=== PATIENT | female | born 1935 | race Caucasian/White ===

== ENCOUNTER 2021-12-09 10:39 | Outpatient (CLI) | payer MEDICARE, BC, SELFPAY ==
--- OUTSIDE RECORDS SUMMARY | 2021-12-09 10:59 | XMS_ITS | Summary of Care ---
:1935 Author Organization [facility] Address [facility] [address] [place] [address]- Encounter 08/18/16 - 08/20/16 [facility] [address] [place] [address]- Discharge Diagnosis: Vulvitis Attending Physician: Rufino Latif DO Vital Signs Most recent to oldest [Reference Range]: 1 Blood Pressure [90-140/60-90 mmHg] 104/60 mmHg (08/18/16 2:51 PM) Mean Arterial Pressure 75 mmHg (08/18/16 2:51 PM) Peripheral Pulse Rate [60-100 bpm] 80 bpm (08/18/16 2:51 PM) Respiratory Rate [14-20 br/min] 12 br/min *LOW* (08/18/16 2:51 PM) Problem List No data available for this section Allergies, Adverse Reactions, Alerts Substance Reaction Severity Status Flagyl hives Active sulfa drug hives Active Medications aspirin 81 mg oral tablet 1 tab(s) ( 81 mg ), PO, Daily, # 30 tab(s), 0 Refill(s), Type: Maintenance Start Date: 08/18/16 Status: Orderedbumetanide 1 mg oral tablet 1 tab(s) ( 1 mg ), PO, Daily, # 30 tab(s), 0 Refill(s), Type: Maintenance Start Date: 08/18/16 Status: Orderedcinnamon ( 1,000 mg ), po, bid, 0 Refill(s), Type: Maintenance Start Date: 08/18/16 Status: Orderedclobetasol 0.05% topical cream 1 ada, TOP, BID, # 45 gm, 1 Refill(s), Type: Maintenance, Pharmacy: [facility], 1 ada top bid Start Date: 08/18/16 Status: XlxefvhPuL40 ( 300 mg ), po, daily, 0 Refill(s), Type: Maintenance Start Date: 08/18/16 Status: OrdereddilTIAZem 300 mg/24 hours oral capsule, extended release 1 cap(s) ( 300 mg ), PO, Daily, # 90 cap(s), 0 Refill(s), Type: Maintenance Start Date: 08/18/16 Status: OrderedEmergen-C 0 Refill(s), Type: Maintenance Start Date: 08/18/16 Status: OrderedHumaLOG subcutaneous, Instructions: 6-9 units with meals, 0 Refill(s), Type: Maintenance Start Date: 08/18/16 Status: OrderedLantus subcutaneous, Instructions: 9 units at bedtime, 0 Refill(s), Type: Maintenance Start Date: 08/18/16 Status: Orderedlisinopril 20 mg oral tablet 1 tab(s) ( 20 mg ), PO, Daily, # 30 tab(s), 0 Refill(s), Type: Maintenance Start Date: 08/18/16 Status: OrderedmetFORMIN 500 mg oral tablet 1 tab(s) ( 500 mg ), PO, BID, # 180 tab(s), 0 Refill(s), Type: Maintenance Start Date: 08/18/16 Status: OrderedOmega-3 oral capsule 0 Refill(s), Type: Maintenance Start Date: 08/18/16 Status: Orderedpravastatin 10 mg oral tablet 1 tab(s) ( 10 mg ), PO, Daily, # 30 tab(s), 0 Refill(s), Type: Maintenance Start Date: 08/18/16 Status: OrderedProbiotic Formula oral capsule 1 cap(s), po, daily, 0 Refill(s), Type: Maintenance Start Date: 08/18/16 Status: Orderedspironolactone 25 mg oral tablet 0.5, po, daily, Instructions: take one half tablet daily, 0 Refill(s), Type: Maintenance Start Date: 08/18/16 Status: OrderedVitamin D3 2000 intl units oral capsule 1 cap(s) ( 2,000 International Unit ), po, daily, 0 Refill(s), Type: Maintenance Start Date: 08/18/16 Status: Ordered Results No data available for this section Immunizations No data available for this section Procedures No data available for this section Social History Social History Type Response Tobacco Lived with a smoker for 23 y ears Smoking Status Never smoker Assessment and Plan No data available for this section
--- OUTSIDE RECORDS SUMMARY | 2021-12-09 10:59 | XMS_ITS | Summary of Care ---
:1935 Author Organization [facility] Address [facility] [address] [place] [address]- Care Team Providers Name Role Phone Unavailable Primary Care Physician Unavailable Encounter(s) 10/15/14 - 10/17/14 [facility] [address] [place] [address]- Attending Physician: Rufino Latif DO 02/23/08 - 02/23/08 [facility] [address] [place] [address]- Vital Signs Most recent to oldest [Reference Range]: 1 Height 70.5 in (10/15/14 2:57 PM) Weight 201.4 lb (10/15/14 2:57 PM) Body Mass Index 28.49 kg/m2 (10/15/14 2:57 PM) BSA 2.13 m2 (10/15/14 2:57 PM) Blood Pressure [90-140/60-90 mmHg] 140/64 mmHg (10/15/14 2:57 PM) Mean Arterial Pressure 89 mmHg (10/15/14 2:57 PM) Allergies Verified? Yes (10/15/14 2:57 PM) Medication History Verified? Yes (10/15/14 2:57 PM) Problem List No data available for this section Allergies, Adverse Reactions, Alerts No data available for this section Medications No data available for this section Results No data available for this section Immunizations No data available for this section Procedures No data available for this section Social History Social History Type Response Tobacco Lived with a smoker for 23 y ears Smoking Status Never smoker Assessment and Plan Extracted from: Title: Pelvic organ prolapse Author: Rufino Latif DO Date: 10/15/14 Impression and Plan Orders Orders Charges (Evaluation and Management): [address] office/outpatient visit scott [facility]) (Order): Quantity: 1. I had a very long discussion today with Lorne as well as her about all of her options at this point. We discussed the fact that pelvic organ prolapse in and of itself is not a medical emergen cy. We discussed the fact that it is typ ically treated based on how much the symptoms of the prolapse bother her as well as how much they interfere with her everyday activities. We discussed the fact th at she essentially has 3 options at this point includin] continued observation 2] conservative management including the use of a pessary and physical therapy 3] surgical management including a vagin al hysterectomy with anterior colporrhap hy. I discussed the risks and benefits of each of the options. We discussed today at length the surgica l options. We discussed the fact that surgery is typically done through the vagina and involves removing the uterus and cervix. We talked with the fact the recove ry typically 1-2 weeks with an overnight stay in the hospital. We discussed no heavy lifting for 6 weeks as well as the fact that she should not drive while on narcotics. We discussed at length the fact that this surgery is not medically hector atory, however I do believe that she would have a significant improvement in her everyday activity after surgery. We discussed the limitations of surgery includin g the fact that plication of the anterio r vaginal fascia may weaken with time. Again her questions are answered. Lorne is very well educated and it is clear that she has done her research as to the a dvantages and disadvantages of surgery. We did briefly discuss the fact that vaginal mesh is no longer used in such surgery. I discussed with the patient that at thi s point I would like her to contemplate her options. I would recommend that she continue to follow through with her appointment for pelvic physical therapy in [place]. I have encouraged her to discuss he r options with her immediate family. If she chooses to proceed with surgery I would be happy to see her again in the office to schedule a date. Lorne reports t hat if she does decide to proceed with s urgery that she would like to have it in early October so that she has time to recover prior to scheduled vacation.
--- OUTSIDE RECORDS SUMMARY | 2021-12-09 11:00 | XMS_ITS | Continuity of Care Document ---
:[address] [facility] Address [facility] - [address] [place] [address]- Encounter 01/17/18 - 01/17/18 [facility] [address] [place] [address]- Attending Physician: [facility] , Referring Physician: LEE RAMIRES Allergies, Adverse Reactions, Alerts Substance Reaction Severity Status flaygl Hives Active sulfa drug Hives Active nitroimidazole amebicides Active statins Active Immunizations Given and Recorded Vaccine Date Status Refusal Reason influenza virus vaccine, inactivated1 11/12/17 Recorded influenza virus vaccine, inactivated 11/05/16 Given influenza virus vaccine, inactivated 11/12/15 Given influenza virus vaccine, inactivated 10/30/14 Given influenza virus vaccine, inactivated 11/15/13 Given influenza virus vaccine, inactivated 11/20/11 Given influenza virus vaccine, inactivated 11/11/10 Given influenza virus vaccine, inactivated 11/11/09 Given ZOS, shingles2 10/08/17 Recorded ZOS, shingles 12/20/07 Recorded pneumococcal (PCV13) 01/12/14 Given influenza 11/07/12 Given influenza 11/08/08 Recorded influenza 11/22/96 Recorded tetanus/diphth/pertuss (Tdap) adult/adol 08/17/11 Recorde d DTaP 08/17/11 Recorded influenza, H1N1, inactivated 02/01/09 Recorded Td 09/23/03 Recorded Td 08/27/92 Recorded pneumococcal (PPSV23) 06/13/02 Recorded pneumococcal (PPSV23) 10/30/93 Recorded Hep B 07/31/96 Recorded Hep B 02/22/96 Recorded Hep B 01/23/96 Recorded Hep A 07/31/96 Recorded Hep A 01/23/96 Recorded 1Result Comment: [11/17/2017] Received at [facility]2Result Comment: [10/12/2017] Received at [facility], [place], [place] Medications Ambien 5 mg oral tablet 1 tab(s) ( 5 mg ), po, hs, # 30 tab(s), 0 Refill(s), Type: Maintenance, called to pharmacy (Rx) Start Date: 03/20/11 Stop Date: 08/02/13 Status: Discontinuedamlodipine 5 mg oral tablet 1 tab(s) ( 5 mg ), PO, Daily, Instructions: Discontinue Metoprolol, # 30 tab(s), 11 Refill(s), Type:Maintenance, Pharmacy: [facility], 1 tab(s) po daily,Instr:Discontinue Metoprolol Start Date: 07/23/14 Stop Date: 07/24/14 Status: Discontinuedamlodipine 5 mg oral tablet 1 tab(s) ( 5 mg ), PO, Daily, Instructions: D/C Diltiazem, # 30 tab(s), 11 Refill(s), Type: Maintenance, Pharmacy: [facility] Start Date: 05/19/12 Stop Date: 07/26/12 Status: Discontinuedaspirin 81 mg oral tablet 1 tab(s) ( 81 mg ), PO, Daily, 0 Start Date: 03/07/09 Stop Date: 03/08/12 Status: Discontinuedaspirin 81 mg oral tablet 1 tab(s) ( 81 mg ), po, daily, 0 Refill(s), Type: Maintenance Start Date: 10/08/14 Status: OrderedBD ULTRA FINE 33 G LANCETS MG APPLY See Instructions, Instructions: TEST FOUR TIMES A DAY OR DIRECTED [id number], # 100 unknown unit, 11 Refill(s), Pharmacy: [facility] Start Date: 06/19/10 Stop Date: 08/02/13 Status: DiscontinuedBD ULTRA ULTRA=FINE 111 MINI PEN NEEDLES BD ULTRA ULTRA=FINE 111 MINI PEN NEEDLES, See Instructions, Instructions: INJECT DIRECTED, Supply, # 100 EA, 6 Refill(s), Type: Maintenance Start Date: 02/04/16 Stop Date: 07/23/16 Status: DiscontinuedBD ULTRA-FINE III MINI PEN NEEDLESMG INJECTABLE See Instructions, Instructions: INJECT DIRECTED [id number], # 100 EA, Pharmacy: [facility] Start Date: 02/15/12 Stop Date: 08/02/13 Status: Discontinuedbumetanide 1 mg oral tablet 1 tab(s) ( 1 mg ), po, daily, # 90 tab(s), 3 Refill(s), Type: Maintenance Start Date: 02/13/14 Stop Date: 02/13/14 Status: Discontinuedbumetanide 1 mg oral tablet See Instructions, Instructions: TAKE ONE TABLET BY MOUTH ONCE DAILY, # 90 unknown unit, 3 Refill(s),Pharmacy: [facility] Start Date: 08/18/12 Stop Date: 02/02/13 Status: Discontinuedbumetanide 1 mg oral tablet See Instructions, Instructions: TAKE ONE TABLET BY MOUTH ONCE DAILY, # 90 unknown unit, TAKE ONE TABLET BY MOUTH ONCE DAILY Start Date: 05/07/15 Status: OrderedBumex 0.5 mg oral tablet 1 tab(s) ( 0.5 mg ), PO, Daily, # 90 tab(s), 3 Refill(s), Type: Soft Stop, Pharmacy: [facility] Start Date: 03/21/12 Stop Date: 05/19/12 Status: DiscontinuedCartia XT 240 mg/24 hours oral capsule, extended release 1 cap(s) ( 240 mg ), PO, Daily, # 90 cap(s), 3 Refill(s), Type: Maintenance, Pharmacy: [facility],1 cap(s) po daily Start Date: 07/23/16 Stop Date: 12/08/16 Status: DiscontinuedCartia XT 300 mg/24 hours oral capsule, extended release 1 cap(s) ( 300 mg ), po, daily, # 90 cap(s), 0 Refill(s), Type: Soft Stop Start Date: 01/31/16 Stop Date: 07/23/16 Status: DiscontinuedCayenne pepper drops Cayenne pepper drops, See Instructions, Instructions: 9 gtts daily, Supply, 0 Refill(s), Type: Maintenance Start Date: 01/28/16 Status: OrderedCoenzyme Q10 PO, bid, 0 Refill(s), Type: Maintenance Start Date: 03/07/09 Status: OrderedDilt-XR 240 mg/24 hours oral capsule, extended release 1 cap(s) ( 240 mg ), po, daily, 0 Refill(s), Type: Maintenance Start Date: 08/23/14 Stop Date: 12/04/14 Status: Discontinueddiltiazem 120 mg/24 hours oral capsule, extended release 2 cap(s) ( 240 mg ), po, daily, # 60 cap(s), 2 Refill(s), Type: Maintenance Start Date: 02/03/13 Stop Date: 02/03/13 Status: DiscontinueddilTIAZem 180 mg/24 hours oral capsule, extended release 1 cap(s) ( 180 mg ), PO, Daily, # 30 cap(s), 0 Refill(s), Type: Maintenance Start Date: 12/08/16 Status: Ordereddiltiazem 240 mg/24 hours oral capsule, extended release 1 cap(s) ( 240 mg ), po, daily, # 90 cap(s), 3 Refill(s), Type: Maintenance, Pharmacy: [facility] Start Date: 03/22/12 Stop Date: 05/19/12 Status: Discontinueddiltiazem 240 mg/24 hours oral tablet, extended release 1 tab(s) ( 240 mg ), po, daily, # 90 tab(s), 0 Refill(s), Type: Maintenance, 1 tab(s) po daily Start Date: 01/23/14 Stop Date: 07/13/14 Status: DiscontinuedDiltiazem Hydrochloride XR 300 mg/24 hours oral capsule, extended release 1 cap(s) ( 300 mg ), po, daily, 0 Refill(s), Type: Maintenance Start Date: 12/04/14 Stop Date: 01/21/15 Status: DiscontinuedEmergen-C 0 Refill(s), Type: Maintenance Start Date: 05/19/16 Status: OrderedFish Oil oral capsule daily, 0 Refill(s), Type: Maintenance Start Date: 11/30/11 Status: OrderedFlonase 0.05 mg/inh nasal spray 2 spray(s), Nasal, Daily, # 1 EA, 11 Refill(s), Type: Maintenance, Pharmacy: [facility] Start Date: 08/07/10 Stop Date: 08/02/13 Status: DiscontinuedFlonase 0.05 mg/inh nasal spray 1 spray(s), nasal, daily, # 1 EA, 0 Refill(s), Pharmacy: [facility] Start Date: 11/13/09 Stop Date: 09/02/10 Status: DiscontinuedFoltx oral tablet See Instructions, Instructions: TAKE ONE TABLET BY MOUTH ONCE DAILY, # 90 unknown unit, 3 Refill(s),Pharmacy: [facility] Start Date: 08/18/12 Stop Date: 08/02/13 Status: Discontinuedfurosemide 40 mg oral tablet 1 tab(s) ( 40 mg ), PO, Daily, # 90 tab(s), 0 Refill(s), Type: Maintenance, Pharmacy: [facility], 1 tab(s) po daily Start Date: 04/24/13 Stop Date: 08/02/13 Status: DiscontinuedHumulin 70/30 Pen subcutaneous suspension See Instructions, Instructions: INJECT DIRECTED, # 45 unknown unit, 2 Refill(s), Pharmacy: [facility], INJECT DIRECTED Start Date: 06/19/14 Stop Date: 06/19/14 Status: Discontinuedhydrochlorothiazide 25 mg oral tablet 1 tab(s) ( 25 mg ), PO, Daily, Instructions: D/C Bumex, # 30 tab(s), 11 Refill(s), Type: Maintenance, Pharmacy: [facility] Start Date: 05/19/12 Stop Date: 07/21/12 Status: Discontinuedinsulin aspart 70/30, Subcutaneous, 0 Start Date: 03/07/09 Stop Date: 09/02/10 Status: DiscontinuedLantus Solostar Pen 100 units/mL subcutaneous solution ( 9 unit(s) ), subcutaneous, hs, # 15 mL, 3 Refill(s), Type: Maintenance, Pharmacy: [id number], 9 unit(s) subcutaneous hs Start Date: 02/13/16 Status: Orderedlisinopril 20 mg oral tablet 2 tab(s) ( 40 mg ), PO, daily, 0 Refill(s), Type: Maintenance Start Date: 04/24/11 Stop Date: 04/24/11 Status: Discontinuedlisinopril 20 mg oral tablet 0.5 tab(s) ( 10 mg ), PO, Daily, # 30 tab(s), 0 Refill(s), Type: Maintenance Start Date: 12/08/16 Status: Orderedlisinopril 20 mg oral tablet 1 tab(s) ( 20 mg ), po, daily, 0 Refill(s), Type: Maintenance Start Date: 03/21/12 Stop Date: 03/21/12 Status: Discontinuedlisinopril 40 mg oral tablet 1 tab(s) ( 40 mg ), po, daily, # 30 tab(s), 0 Refill(s), Type: Maintenance, Pharmacy: [facility], due for visit Start Date: 12/02/16 Stop Date: 12/08/16 Status: Discontinuedlovastatin 10 mg oral tablet 1 tab(s) ( 10 mg ), PO, Daily, # 90 tab(s), 0 Refill(s), Type: Maintenance Start Date: 02/04/12 Stop Date: 05/19/12 Status: Discontinuedlovastatin 10 mg oral tablet 1 tab(s) ( 10 mg ), po, daily, 0 Refill(s), Type: Maintenance Start Date: 12/11/11 Stop Date: 01/25/12 Status: Discontinuedlovastatin 20 mg oral tablet 1 tab(s) ( 20 mg ), po, daily, # 90 tab(s), 3 Refill(s), Pharmacy: [facility] Start Date: 11/30/11 Stop Date: 12/11/11 Status: Discontinuedlovastatin 20 mg oral tablet 1 tab(s) ( 20 mg ), po, daily, # 90 tab(s), 1 Refill(s), Pharmacy: [facility] Start Date: 09/02/10 Stop Date: 09/02/10 Status: Discontinuedlovastatin 40 mg oral tablet 1 tab(s) ( 40 mg ), PO, Daily, 0 Start Date: 03/07/09 Stop Date: 10/09/09 Status: Discontinuedmetformin 500 mg oral tablet 2 tab(s) ( 1,000 mg ), PO, BID, # 360 tab(s), 1 Refill(s), Type: Maintenance, 2 tab(s) po bid Start Date: 01/21/15 Stop Date: 10/29/15 Status: DiscontinuedmetFORMIN 500 mg oral tablet, extended release 1 tab(s) ( 500 mg ), PO, daily, # 90 tab(s), 3 Refill(s), Type: Maintenance Start Date: 10/29/15 Status: OrderedMethyl CpG (Vit B) Methyl CpG (Vit B), See Instructions, Supply, 0 Refill(s), Type: Maintenance Start Date: 01/28/16 Status: Orderedmetoprolol succinate 25 mg oral tablet, extended release 1 tab(s) ( 25 mg ), po, daily, # 90 tab(s), 3 Refill(s), Type: Maintenance, Pharmacy: [facility], 1 tab(s) po daily Start Date: 07/24/14 Stop Date: 08/23/14 Status: Discontinuedmetoprolol succinate 50 mg oral tablet, extended release 1 tab(s) ( 50 mg ), PO, Daily, Instructions: Discontinue Diltiazem do not crush or chew, # 90 tab(s), 3 Refill(s), Type: Maintenance, Pharmacy: [facility], 1 tab(s) po daily,Instr:Discontinue Diltiazem; do not crush or chew Start Date: 07/13/14 Stop Date: 07/23/14 Status: DiscontinuedMiraLax 0 Refill(s), Type: Maintenance Start Date: 01/28/16 Status: OrderedNovolin 70/30 subcutaneous suspension See Instructions, Instructions: subcutaneous DIRECITED, # 10 mL, 0 Refill(s), Type: Maintenance, called to pharmacy (Rx) Start Date: 06/19/14 Stop Date: 06/19/14 Status: DiscontinuedNovoLOG FlexPen 100 units/mL subcutaneous solution See Instructions, Instructions: INJECT 9 UNITS SUBCUTANEOUS THREE TIMES A DAY BEFORE MEALS, # 15 unknown unit, 0 Refill(s), Type: Maintenance, Pharmacy: [facility] Start Date: 11/03/16 Status: OrderedNovoLog Mix 70/30 FlexPen ( 10 unit(s) ), subcutaneous, Instructions: as directed, mL, 0 Refill(s), Type: Maintenance Start Date: 02/17/10 Stop Date: 06/08/11 Status: DiscontinuedNovoLog Mix 70/30 FlexPen subcutaneous suspension See Instructions, Instructions: 14-16 UNITS TWICE DAILY subcutaneous bidac, # 15 mL, 2 Refill(s), Type: Maintenance, as directed Start Date: 01/21/15 Stop Date: 07/04/15 Status: Discontinuedpravastatin 10 mg oral tablet 1 tab(s) ( 10 mg ), po, hs, Instructions: MWF, # 90 tab(s), 3 Refill(s), Type: Maintenance Start Date: 01/28/16 Status: Orderedpravastatin 10 mg oral tablet See Instructions, Instructions: TAKE ONE TABLET BY MOUTH ONCE ON MONDAYS, WEDNESDAYS, AND FRIDAYS, #39 unknown unit, 1 Refill(s), Type: Maintenance, Pharmacy: [facility] Start Date: 01/23/16 Stop Date: 01/28/16 Status: DiscontinuedPreserVision AREDS 2 1 cap(s), po, bid, 0 Refill(s), Type: Maintenance Start Date: 10/08/14 Status: OrderedProbiotic Formula 1 cap(s), po, daily, 0 Refill(s), Type: Maintenance Start Date: 06/05/16 Status: Orderedspironolactone 25 mg oral tablet See Instructions, Instructions: 0.5 tab(s) po daily, # 45 EA, 3 Refill(s), Type: Maintenance Start Date: 01/28/16 Status: OrderedVibr-Gest Vibr-Gest, See Instructions, Instructions: 1 caps daily, Supply, 0 Refill(s), Type: Maintenance Start Date: 05/19/16 Status: OrderedVitamin B12 See Instructions, Instructions: 1,000mcg/15ml - 1/2 dropperful MWF, 0 Refill(s), Type: Maintenance Start Date: 06/10/17 Status: OrderedVitamin D3 ( 2,000 International Unit ), po, daily, Instructions: takes qam and takes on M,W,F on days when nottaking her Ca/Vit D, 0 Refill(s), Type: Maintenance Start Date: 01/28/16 Status: OrderedWelchol 3.75 g oral powder for reconstitution 1 EA ( 3.75 gm ), po, daily, 0 Refill(s), Type: Maintenance Start Date: 05/09/13 Stop Date: 06/22/13 Status: DiscontinuedXarelto 15 mg oral tablet 1 tab(s) ( 15 mg ), po, qpm, # 30 tab(s), 11 Refill(s), Type: Maintenance, Pharmacy: [facility], 1tab(s) po qpm Start Date: 07/10/14 Stop Date: 08/23/14 Status: Discontinued Problem List Condition Effective Dates Status Health Status Informant Benign hypertensive CKD(Confirmed) Active Irritable bladder(Confirmed) Active Stage 3 chronic kidney Active disease(Confirmed) Chronic rhinitis(Confirmed) Active Constipation(Confirmed) Active Nocturnal leg cramps(Confirmed) Active Cystocele(Confirmed) Active B12 deficiency(Confirmed) Active Statin intolerance(Confirmed) Active Myofacial muscle pain(Confirmed)1 01/24/15 Active Generalized anxiety Active disorder(Confirmed) History of uterine prolapse(Confirmed) Active Benign head tremor(Confirmed) Active Personal history of colonic Active polyps(Confirmed)2 Dyslipidemia, goal LDL below Active 100(Confirmed) Hypertension complicating Active diabetes(Confirmed) Impingement syndrome, Active shoulder(Confirmed)3 Uterine Prolapse(Confirmed) Active Menopause(Confirmed) 1985 Active Muscle atrophy(Confirmed) Active Osteoarthritis of left knee(Confirmed) Active SVT (supraventricular Active tachycardia)(Confirmed) 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 Vitamin D deficiency(Confirmed) Active [id number] colonoscopy q 3 yrs.3both Procedures Procedure Date Related Diagnosis Body Site Status Biopsy of vulva 09/14/16 Completed BSO - Bilateral salpingo-oophorectomy 09/14/16 Completed Colporrhaphy 09/14/16 Completed Vaginal hysterectomy 09/14/16 Complet ed Colonoscopy1 06/24/16 Completed Colonoscopy2 12/28/12 Completed HPV - Human papillomavirus test 06/19/10 Completed negative3 Colonoscopy4, 5 11/27/09 Completed DEXA - Dual energy X-ray photon 06/22/08 Completed absorptiometry6 Colonoscopy 2004 Completed Left Tibia/Fibula FX 01/2002 Complet ed Laparoscopic cholecystectomy 05/27/00 Completed Adenoidectomy 1941 Completed Tonsillectomy 1941 Completed 1Indication: Adrenomatous polyps Sedation: Versed 1 mg. Fentanyl 50 mcg Findings: Tubular adenoma, diverticulosis Rec: Repeat in 5 years.2Serrated polyp. Repeat 5 years.3Low risk for cervical cancer, but prefers annual pap screening.4Repeat 3 yrs. (Due fall 2012). Has done in [place].5Diverticulosis, 6mm sessile serrated adenoma ascending colon 6Excellent and stable. OK to repeat 5-10 yrs. Social History Social History Type Response Smoking Status Never smoker
--- OUTSIDE RECORDS SUMMARY | 2021-12-09 11:00 | XMS_ITS | Summary of Care ---
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 Discharge Diagnosis: Osteoarthritis of Left Knee Discharge Diagnosis: HTN (hypertension) Discharge Diagnosis: Frequent PVCs Discharge Diagnosis: Dyslipidemia, goal LDL below 100 Attending Physician: Panchito Varela MD Vital Signs Most recent to oldest [Reference Range]: 1 2 Height 70.5 in (12/04/14 10:15 AM) Weight 169 lb (12/04/14 10:15 AM) Body Mass Index 23.9 kg/m2 (12/04/14 10:15 AM) BSA 1.95 m2 (12/04/14 10:15 AM) Blood Pressure [90-140/60-90 mmHg] 132/76 mmHg 146/7 0 mmHg (12/04/14 10:53 AM) *HI* (12/04/14 10:15 AM) Mean Arterial Pressure 95 mmHg 95 mmHg (12/04/14 10:53 AM) (12/04/14 10:15 AM) Peripheral Pulse Rate [60-100 bpm] 73 bpm (12/04/14 10:15 AM) Allergies Verified? Yes (12/04/14 10:15 AM) Medication History Verified? Yes (12/04/14 10:15 AM) Problem List Condition Effective Dates Status Health Status Informant Adenomatous Polyp of Colon(Confirmed) 2004 Active Controlled type 2 DM with proteinuria Active or microalbuminuria(Confirmed) Cystocele(Confirmed) Active Diabetes mellitus type II(Confirmed) Active Dyslipidemia, goal LDL below Active 100(Confirmed) HTN (hypertension)(Confirmed) Active Impingement syndrome, Active shoulder(Confirmed)1 Uterine Prolapse(Confirmed) Active Irritable bladder(Confirmed) Active Menopause(Confirmed) 1985 Active Nocturnal leg cramps(Confirmed) Active Osteoarthritis of Left Knee(Confirmed) Active PERSONAL HISTORY OF COLONIC Active POLYPS(Confirmed)2 Statin intolerance(Confirmed) Active SVT (supraventricular Active tachycardia)(Confirmed) Frequent PVCs(Confirmed) Active [id number] colonoscopy q 3 yrs. Allergies, Adverse Reactions, Alerts Substance Reaction Severity Status flaygl Hives Active sulfa drug Hives Active Medications aspirin 81 mg oral tablet 3 tab(s) ( 243 mg ), po, daily, 0 Refill(s), Type: Maintenance Start Date: 10/08/14 Status: OrderedBD ULTRA FINE 33 G LANCETS MG APPLY See Instructions, Instructions: TEST FOUR TIMES A DAY OR DIRECTED [id number], # 100 unknown unit, [facility]acy: [facility] Special Instructions: TEST FOUR TIMES A DAY OR DIRECTED [id number] Start Date: 02/15/12 Status: OrderedBD ULTRA-FINE III MINI PEN NEEDLES MG INJECTABLE See Instructions, Instructions: INJECT DIRECTED [id number], # 100 unknown unit, 12 Refill(s), [facility], INJECT DIRECTED [id number] Special Instructions: INJECT DIRECTED [id number] Start Date: 10/22/14 Status: OrderedBD ULTRA-FINE III MINI PEN NEEDLES MG INJECTABLE See Instructions, Instructions: INJECT DIRECTED [id number], # 100 unknown unit, 5 Refill(s), [facility]: [facility], INJECT DIRECTED [id number] Special Instructions: INJECT DIRECTED [id number] Start Date: 09/26/13 Status: Orderedbumetanide 1 mg oral tablet See Instructions, Instructions: TAKE ONE TABLET BY MOUTH ONCE DAILY, # 90 unknown unit, 3 Refill(s),[facility]acy: [facility], TAKE ONE TABLET BY MOUTH ONCE DAILY Special Instructions: TAKE ONE TABLET BY MOUTH ONCE DAILY Start Date: 02/19/14 Status: OrderedCalcium with Vitamin D and K oral tablet 1 tab(s), po, bid, 0 Refill(s), Type: Maintenance Start Date: 11/30/11 Status: OrderedCoenzyme Q10 PO, Daily, 0 Start Date: 03/07/09 Status: OrderedDiltiazem Hydrochloride XR 300 mg/24 hours oral capsule, extended release 1 cap(s) ( 300 mg ), po, daily, 0 Refill(s), Type: Maintenance Start Date: 12/04/14 Status: OrderedFish Oil oral capsule 3-4x/wk, 0 Refill(s), Type: Maintenance Start Date: 11/30/11 Status: OrderedHome Blood Pressure monitor Home Blood Pressure monitor, See Instructions, Instructions: Monitor BP at home, Supply, # 1 EA, 0 Refill(s), Type: Maintenance Special Instructions: Monitor BP at home Start Date: 07/24/14 Status: Orderedlisinopril 40 mg oral tablet 1 tab(s) ( 40 mg ), po, daily, # 90 tab(s), 1 Refill(s), Type: Maintenance, [facility]acy: [facility], 1 tab(s) po daily Start Date: 07/22/14 Status: Orderedmetformin 500 mg oral tablet 2 tab(s) ( 1,000 mg ), PO, BID, # 360 tab(s), 1 Refill(s), Type: Maintenance, Pharmacy: [facility], 2 tab(s) po bid Start Date: 07/22/14 Status: OrderedNOVA MAX STRIPS MG APPLY See Instructions, Instructions: TEST FOUR TIMES A DAY OR DIRECTED, # 100 unknown unit, 11 Refill(s), [facility]: [facility], TEST FOUR TIMES A DAY OR DIRECTED Special Instructions: TEST FOUR TIMES A DAY OR DIRECTED Start Date: 02/19/14 Status: OrderedNovoLog Mix 70/30 FlexPen subcutaneous suspension ( 14 unit(s) ), subcutaneous, bidac, # 10 mL, 2 Refill(s), Type: Maintenance, Pharmacy: [facility], as directed Start Date: 06/19/14 Status: Orderedpravastatin 10 mg oral tablet 1 tab(s) ( 10 mg ), po, mwf, # 39 tab(s), 1 Refill(s), Type: Maintenance, Pharmacy: [facility], 1 tab(s) po mwf Start Date: 07/22/14 Status: OrderedPreserVision AREDS 2 1 cap(s), po, daily, 0 Refill(s), Type: Maintenance Start Date: 10/08/14 Status: Ordered Results No data available for this section Immunizations Vaccine Date Refusal Reason influenza virus vaccine, inactivated 10/30/14 influenza virus vaccine, inactivated 11/15/13 influenza virus vaccine, inactivated 11/20/11 influenza virus vaccine, inactivated 11/11/10 influenza virus vaccine, inactivated 11/11/09 pneumococcal (PCV13) 01/12/14 influenza 11/07/12 influenza 11/08/08 influenza 11/22/96 tetanus/diphth/pertuss (Tdap) adult/adol 08/17/11 DTaP 08/17/11 ZOS, shingles 12/20/07 Td 09/23/03 Td 08/27/92 pneumococcal (PPSV23) 06/13/02 pneumococcal (PPSV23) 10/30/93 Hep A 07/31/96 Hep A 01/23/96 Hep B 07/31/96 Hep B 02/22/96 Hep B 01/23/96 Procedures Procedure Date Related Diagnosis Body Site Colonoscopy1 12/28/12 HPV - Human papillomavirus test negative2 06/19/10 Colonoscopy3, 4 11/27/09 DEXA - Dual energy X-ray photon absorptiometry5 06/22/08 Colonoscopy 2005 Left Tibia/Fibula FX 01/2002 Laparoscopic cholecystectomy 05/27/00 Adenoidectomy 194 Tonsillectomy 1941 1Serrated polyp. Repeat 5 years.2Low risk for cervical cancer, but prefers annual pap screening.3Diverticulosis, 6mm sessile serrated adenoma ascending [id number] 3 yrs. (Due fall 2012). Has done in [place].5Excellent and stable. OK to repeat 5-10 yrs. Social History Social History Type Response Smoking Status Never smoker Assessment and Plan Extracted from: Title: DM Author: Panchito Varela MD Date: 5 Impression and Plan Diagnosis Dyslipidemia, goal LDL below 100 (ICD10- CM E78.5). Controlled type 2 DM with microalbuminur ia or microproteinuria (EWQ90-US E11.9). HTN (hypertension) (VWO97-AY I10). Osteoarthritis of Left Knee (EIB34-XV M1 7.9). Statin intolerance (OKP64-MJ Z88.9). Frequent PVCs (YRA58-TT I49.3). Course: Good response to treatment. Orders Orders (Selected) Outpatient Orders Ordered Return to Clinic (Request): RFV: Catarina solano, Return in 6 months, Instructions: after lab Return to Clinic (Request): Return in 1 year w/ D. Barry bring meter and log Return to Clinic: RFV: Lab standing orde r: MATIAS,lipid q12mo Hgb A1C ,BMP, lipids q6mo Return to Office (Request): RFV: MATIAS in 6 months. QID monitoring for one week. Patient Instructions: Counseled: Patient , Diet, Activity, Verbalized understanding, weight loss.
--- OUTSIDE RECORDS SUMMARY | 2021-12-09 11:00 | XMS_ITS | Summary of Care ---
:1935 Author Organization [facility] s Address [address] [address]- Care Team Providers Name Role Phone Panchito Varela MD Primary Care Physician Encounter 01/28/16 - 01/30/16 [facility] [[email or web address]] [address] [place] [id number]- Discharge Diagnosis: Dyslipidemia, goal LDL below 100 Discharge Diagnosis: Type 2 diabetes mellitus with hemoglobin A1c goal of less than 7.0% Discharge Diagnosis: Chronic kidney disease (CKD), stage III (moderate) Discharge Diagnosis: HTN (hypertension) Attending Physician: Isak Rae MD Vital Signs Most recent to oldest [Reference Range]: 1 Temperature Tympanic [97.9-100.6 DegF] 97.8 DegF *LOW* (01/28/16 2:27 PM) Systolic Blood Pressure [90-140 mmHg] 145 mmHg *HI* (01/28/16 2:27 PM) Peripheral Pulse Rate [60-100 bpm] 65 bpm (01/28/16 2:27 PM) Allergies Verified? Yes (01/28/16 2:27 PM) Medication History Verified? Yes (01/28/16 2:27 PM) Medical History Verified? Yes (01/28/16 2:27 PM) Problem List Condition Effective Dates Status Health Status Informant Adenomatous Polyp of Colon(Confirmed) 2004 Active Chronic rhinitis(Confirmed) Active Constipation(Confirmed) Active Cystocele(Confirmed) Active B12 deficiency(Confirmed) Active Diabetes mellitus type II(Confirmed) Active Myofacial muscle pain(Confirmed)1 01/24/15 Active Generalized anxiety Active disorder(Confirmed) Benign head tremor(Confirmed) Active Dyslipidemia, goal LDL below Active 100(Confirmed) HTN (hypertension)(Confirmed) Active Impingement syndrome, Active shoulder(Confirmed)2 Uterine Prolapse(Confirmed) Active Irritable bladder(Confirmed) Active Menopause(Confirmed) 1984 Active Muscle atrophy(Confirmed) Active Nocturnal leg cramps(Confirmed) Active Osteoarthritis of Left Knee(Confirmed) Active PERSONAL HISTORY OF COLONIC Active POLYPS(Confirmed)3 Colon polyp(Confirmed) Active Renal failure(Confirmed) Active Statin intolerance(Confirmed) Active SVT (supraventricular Active tachycardia)(Confirmed) Type 2 diabetes mellitus with Active hemoglobin A1c goal of less than 7.0%(Confirmed) Frequent PVCs(Confirmed) Active Vitamin D deficiency(Confirmed) Active [id number] colonoscopy q 3 yrs. Allergies, Adverse Reactions, Alerts Substance Reaction Severity Status flaygl Hives Active nitroimidazole amebicides Active statins Active sulfa drug Hives Active Medications aspirin 81 mg oral tablet 1 tab(s) ( 81 mg ), po, daily, 0 Refill(s), Type: Maintenance Start Date: 10/08/14 Status: OrderedBD ULTRA FINE 33 G LANCETS MG APPLY See Instructions, Instructions: TEST FOUR TIMES A DAY OR DIRECTED [id number], # 100 unknown unit, Pharmacy: [facility] Start Date: 02/15/12 Status: OrderedBD ULTRA ULTRA=FINE 111 MINI PEN NEEDLES BD ULTRA ULTRA=FINE 111 MINI PEN NEEDLES, See Instructions, Instructions: INJECT DIRECTED, Supply, # 100 EA, 6 Refill(s), Type: Maintenance, [facility] INJECT DIRECTED Start Date: 07/04/15 Status: OrderedBD ULTRA-FINE III MINI PEN NEEDLES MG INJECTABLE See Instructions, Instructions: INJECT DIRECTED, # 200 EA, 5 Refill(s), [facility]: [facility], INJECT DIRECTED [id number] Start Date: 09/26/13 Status: Orderedbumetanide 1 mg oral tablet See Instructions, Instructions: TAKE ONE TABLET BY MOUTH ONCE DAILY, # 90 unknown unit, TAKE ONE TABLET BY MOUTH ONCE DAILY Start Date: 05/07/15 Status: OrderedCalcium 600+D See Instructions, Instructions: 1200/1000 //Sa/Pimentel, 0 Refill(s), Type: Maintenance Start Date: 01/28/16 Status: OrderedCartia XT 300 mg/24 hours oral capsule, extended release 1 cap(s) ( 300 mg ), po, daily, # 90 cap(s), 0 Refill(s), Type: Soft Stop Start Date: 01/31/16 Status: OrderedCayenne pepper drops Cayenne pepper drops, See Instructions, Instructions: 9 gtts daily, Supply, 0 Refill(s), Type: Maintenance Start Date: 01/28/16 Status: OrderedCoenzyme Q10 PO, bid, 0 Refill(s), Type: Maintenance Start Date: 03/07/09 Status: OrderedCONTOUR NEXT EZ BGM MG BEAD See Instructions, Instructions: USE DIRECTED FREE METER, # 1 unknown unit, Pharmacy: [facility], USE DIRECTED FREE METER Start Date: 05/07/15 Status: OrderedFish Oil oral capsule daily, 0 Refill(s), Type: Maintenance Start Date: 11/30/11 Status: OrderedHome Blood Pressure monitor Home Blood Pressure monitor, See Instructions, Instructions: Monitor BP at home, Supply, # 1 EA, 0 Refill(s), Type: Maintenance Start Date: 07/24/14 Status: OrderedLantus Solostar Pen 100 units/mL subcutaneous solution ( 12 unit(s) ), subcutaneous, hs, # 10 mL, 11 Refill(s), Type: Maintenance, 12 unit(s) subcutaneous hs Start Date: 07/04/15 Status: Orderedlisinopril 40 mg oral tablet 1 tab(s) ( 40 mg ), po, daily, # 90 tab(s), 1 Refill(s), Type: Maintenance, Pharmacy: [facility] Start Date: 01/23/16 Status: OrderedmetFORMIN 500 mg oral tablet, extended release 1 tab(s) ( 500 mg ), PO, bid, # 180 tab(s), 3 Refill(s), Type: Maintenance, 1 tab(s) po bid Start Date: 10/29/15 Status: OrderedMethyl CpG (Vit B) Methyl CpG (Vit B), See Instructions, Supply, 0 Refill(s), Type: Maintenance Start Date: 01/28/16 Status: OrderedMiraLax 0 Refill(s), Type: Maintenance Start Date: 01/28/16 Status: OrderedNOVA MAX STRIPS NOVA MAX STRIPS, See Instructions, Instructions: TEST 4 X Day, Supply, # 2 box(es), 1 Refill(s), Type: Maintenance, Pharmacy: [id number], TEST 4 X Day Start Date: 02/05/15 Status: OrderedNOVA MAX STRIPS MG APPLY See Instructions, Instructions: TEST FOUR TIMES A DAY OR DIRECTED, # 100 unknown unit, 11 Refill(s), Pharmacy: [facility], TEST FOUR TIMES A DAY OR DIRECTED Start Date: 02/19/14 Status: OrderedNovoLOG PenFill 100 units/mL subcutaneous solution ( 9 unit(s) ), subcutaneous, tidac, # 15 mL, 11 Refill(s), Type: Maintenance, 9 unit(s) subcutaneoustidac Start Date: 07/04/15 Status: Orderedpravastatin 10 mg oral tablet 1 tab(s) ( 10 mg ), po, hs, # 90 tab(s), 3 Refill(s), Type: Maintenance, 1 tab(s) po hs Start Date: 01/28/16 Status: OrderedPreserVision AREDS 2 1 cap(s), po, bid, 0 Refill(s), Type: Maintenance Start Date: 10/08/14 Status: OrderedProbiotic Formula 1 cap(s), po, qpm, 0 Refill(s), Type: Maintenance Start Date: 01/28/16 Status: Orderedspironolactone 25 mg oral tablet 1 tab(s) ( 25 mg ), po, daily, # 90 tab(s), 3 Refill(s), Type: Maintenance, 1 tab(s) po daily Start Date: 01/28/16 Status: OrderedVitamin B-12 ( 500 mcg ), po, daily, 0 Refill(s), Type: Maintenance Start Date: 10/29/15 Status: OrderedVitamin D3 ( 2,000 International Unit ), po, daily, Instructions: takes qam and takes on M,W,F on days when nottaking her Ca/Vit D, 0 Refill(s), Type: Maintenance Start Date: 01/28/16 Status: Ordered Results No data available for this section Immunizations Given and Recorded Vaccine Date Status Refusal Reason influenza virus vaccine, inactivated 11/12/15 Given influenza virus vaccine, inactivated 10/30/14 Given influenza virus vaccine, inactivated 11/15/13 Given influenza virus vaccine, inactivated 11/20/11 Given influenza virus vaccine, inactivated 11/11/10 Given influenza virus vaccine, inactivated 11/11/09 Given pneumococcal (PCV13) 01/12/14 Given influenza 11/07/12 Given influenza 11/08/08 Recorded influenza 11/22/96 Recorded tetanus/diphth/pertuss (Tdap) adult/adol 08/17/11 Recorde d DTaP 08/17/11 Recorded influenza, H1N1, inactivated 02/01/09 Recorded ZOS, shingles 12/20/07 Recorded Td 09/23/03 Recorded Td 08/27/92 Recorded pneumococcal (PPSV23) 06/13/02 Recorded pneumococcal (PPSV23) 10/30/93 Recorded Hep B 07/31/96 Recorded Hep B 02/22/96 Recorded Hep B 01/23/96 Recorded Hep A 07/31/96 Recorded Hep A 01/23/96 Recorded Procedures Procedure Date Related Diagnosis Body Site Colonoscopy1 12/28/12 HPV - Human papillomavirus test negative2 06/19/10 Colonoscopy3, 4 11/27/09 DEXA - Dual energy X-ray photon absorptiometry5 06/22/08 Colonoscopy 2004 Left Tibia/Fibula FX 01/2002 Laparoscopic cholecystectomy 05/27/00 Adenoidectomy 1941 Tonsillectomy 1941 1Serrated polyp. Repeat 5 years.2Low risk for cervical cancer, but prefers annual pap screening.3Diverticulosis, 6mm sessile serrated adenoma ascending [id number] 3 yrs. (Due fall 2012). Has done in [place].5Excellent and stable. OK to repeat 5-10 yrs. Social History Social History Type Response Smoking Status Never smoker Assessment and Plan Extracted from: Title: Action Plan Author: Rand Hoffman CMA Date: 01/29/16 ACTION PLAN Goal(s): BP management/monitor kidneys Today? s Date: 01/29/16 Goal(s) completion date: within 1-2 mo Steps to be taken manage BP When will I accomplish these steps Barriers Status hypertension, uncontrolled current antihypertensive regimen: lisin opril 40mg daily, diltiazem 300mg daily, bumetanide 1mg daily regimen changes: add spironolactone 25m g daily intolerance: future titration/work-up plan: - SBP goal <140/90; recommend home jonh toring - potential future beta pierce use? - baseline HR in 60s-7s - needs BMP recheck in 4 weeks ([place]) to insure stable GFR and electrolytes with ACEi + aldosterone antagonist Steps to be taken CKD When will I accomplish these steps Barriers Status CKD, stage 3a, baseline SCr 1.2; eGFR ~4 5-50mL/min - suspect related to microvascular dise ase (longstanding DM and HTN) - historically with +MATIAS - low suspicions for underlying GN - arrange for U/A, urine protein/Cr rat io, BMP, hgb, PTH, phosphorus - needs anti-hypertensive optimization Steps to be taken When will I accomplish these steps Barriers Status Steps to be taken When will I accomplish these steps Barriers Status Extracted from: Title: CCM Intake Author: Rand Hoffman CMA Date: 01/29/16 Pt was referred to [facility] by [facility]. Program d iscussed w/ the patient and consent was signed. Will be leaving for [place] in a coup le of weeks. Extracted from: Title: SHELBYM Renal referral note Author: Isak Rae MD Date: 01/28/16
--- OUTSIDE RECORDS SUMMARY | 2021-12-09 11:00 | XMS_ITS | Continuity of Care Document ---
:1935 Author Organization [facility] s Address [facility] s - [address] [place] [address]- Care Team Providers Name Role Phone Isak Rae MD Primary Care Physician Encounter 06/15/17 - 06/15/17 [facility] [address] [place] [address]- Encounter Diagnosis Chronic kidney disease (CKD), stage III (moderate) (Discharge Diagnosis) - 06/15/17 Dyslipidemia, goal LDL below 100 (Discharge Diagnosis) - 06/15/17 HTN (hypertension) (Discharge Diagnosis) - 06/15/17 Type 2 diabetes mellitus with hemoglobin A1c goal of less than 7.0% (Discharge Diagnosis) - 06/15/17 Attending Physician: Isak Rae MD Referring Physician: Isak Rae MD Allergies, Adverse Reactions, Alerts Substance Reaction Severity Status flaygl Hives Active sulfa drug Hives Active nitroimidazole amebicides Active statins Active Assessment and Plan Extracted from: Title: CKD3 Author: Isak Rae MD Date: 06/15/17 Impression and Plan Diagnosis Chronic kidney disease (CKD), stage III (moderate) (BNC32-CJ N18.3). Type 2 diabetes mellitus with hemoglobin A1c goal of less than 7.0% (OBK76-FE E11.9). HTN (hypertension) (MIK50-TM I10). Dyslipidemia, goal LDL below 100 (ICD10- CM E78.5). .) CKD, stage 3a, baseline SCr 1.5; eGFR ~35-40mL/min; interval rise to 1.5 - suspect related to renal hypoperfusion from hypertensive regimen. - historically with -MATIAS - urine protein/Cr ratio (11/2016): nor mal - low suspicions for underlying GN .) hypertension, too low (symptomatic hy potension) current antihypertensive regimen: lisino pril 10mg daily, diltiazem 180mg daily, bumetanide 1mg daily, spironolactone 12.5mg daily regimen changes: stop lisinopril; in 1-2 weeks, if home SBP remains <120, then needs to stop spironolactone as well intolerance: future titration/work-up plan: - SBP goal <130/80 .) type II DM - managed through Dr. Mary petersen - expresses concerns about Basaglar use instead of Lantus; thinks she is having adverse reactions RTC in 4 months with repeat BMP Immunizations Given and Recorded Vaccine Date Status Refusal Reason influenza virus vaccine, inactivated 11/05/16 Given influenza [...] A 07/31/96 Recorded Hep A 01/23/96 Recorded Medications aspirin 81 mg oral tablet 1 tab(s) ( 81 mg ), po, daily, 0 Refill(s), Type: Maintenance Start Date: 10/08/14 Status: Orderedbumetanide 1 mg oral tablet See Instructions, Instructions: TAKE ONE TABLET BY MOUTH ONCE DAILY, # 90 unknown unit, TAKE ONE TABLET BY MOUTH ONCE DAILY Start Date: 05/07/15 Status: OrderedCayenne pepper drops Cayenne pepper drops, See Instructions, Instructions: 9 gtts daily, Supply, 0 Refill(s), Type: Maintenance Start Date: 01/28/16 Status: OrderedCoenzyme Q10 PO, bid, 0 Refill(s), Type: Maintenance Start Date: 03/07/09 Status: OrdereddilTIAZem 180 mg/24 hours oral capsule, extended release 1 cap(s) ( 180 mg ), PO, Daily, # 30 cap(s), 0 Refill(s), Type: Maintenance Start Date: 12/08/16 Status: OrderedEmergen-C 0 Refill(s), Type: Maintenance Start Date: 05/19/16 Status: OrderedFish Oil oral capsule daily, 0 Refill(s), Type: Maintenance Start Date: 11/30/11 Status: OrderedLantus Solostar Pen 100 units/mL subcutaneous solution ( 9 unit(s) ), subcutaneous, hs, # 15 mL, 3 Refill(s), Type: Maintenance, Pharmacy: [id number], 9 unit(s) subcutaneous hs Start Date: 02/13/16 Status: Orderedlisinopril 20 mg oral tablet 0.5 tab(s) ( 10 mg ), PO, Daily, # 30 tab(s), 0 Refill(s), Type: Maintenance Start Date: 12/08/16 Status: OrderedmetFORMIN 500 mg oral tablet, extended release 1 tab(s) ( 500 mg ), PO, daily, # 90 tab(s), 3 Refill(s), Type: Maintenance Start Date: 10/29/15 Status: OrderedMethyl CpG (Vit B) Methyl CpG (Vit B), See Instructions, Supply, 0 Refill(s), Type: Maintenance Start Date: 01/28/16 Status: OrderedMiraLax 0 Refill(s), Type: Maintenance Start Date: 01/28/16 Status: OrderedNovoLOG FlexPen 100 units/mL subcutaneous solution See Instructions, Instructions: INJECT 9 UNITS SUBCUTANEOUS THREE TIMES A DAY BEFORE MEALS, # 15 unknown unit, 0 Refill(s), Type: Maintenance, Pharmacy: [facility] Start Date: 11/03/16 Status: Orderedpravastatin 10 mg oral tablet 1 tab(s) ( 10 mg ), po, hs, Instructions: MWF, # 90 tab(s), 3 Refill(s), Type: Maintenance Start Date: 01/28/16 Status: OrderedPreserVision AREDS 2 [...] Type: Maintenance Start Date: 01/28/16 Status: Ordered Problem List Condition Effective Dates Status Health Status Informant Irritable bladder(Confirmed) Active CKD (chronic kidney disease) stage 3, Active GFR 30-59 ml/min(Confirmed) Chronic rhinitis(Confirmed) Active Constipation(Confirmed) Active Nocturnal leg cramps(Confirmed) Active Cystocele(Confirmed) Active B12 deficiency(Confirmed) Active Statin intolerance(Confirmed) Active Myofacial muscle pain(Confirmed)1 01/24/15 Active Generalized anxiety Active disorder(Confirmed) History of uterine prolapse(Confirmed) Active Benign head tremor(Confirmed) Active Personal history of colonic Active polyps(Confirmed)2 Dyslipidemia, goal LDL below Active 100(Confirmed) HTN (hypertension)(Confirmed) Active Impingement syndrome, Active shoulder(Confirmed)3 Uterine Prolapse(Confirmed) Active Menopause(Confirmed) 1985 Active Muscle atrophy(Confirmed) Active Osteoarthritis of left knee(Confirmed) Active Renal failure(Confirmed) Active SVT (supraventricular Active tachycardia)(Confirmed) Type 2 diabetes mellitus with Active hemoglobin A1c goal of less than 7.0%(Confirmed) 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 Vitamin D deficiency(Confirmed) Active [id number] colonoscopy q 3 yrs.3both Diagnosis Diagnosis Type Effective Dates Health Clinical Infor mant Status Service HTN Discharge 06/15/17 Non-Specified (hypertension) Diagnosis Dyslipidemia, Discharge 06/15/17 Non-Specified goal LDL below Diagnosis 100 Type 2 diabetes Discharge 06/15/17 Non-Specified mellitus with Diagnosis hemoglobin A1c goal of less than 7.0% Chronic kidney Discharge 06/15/17 Non-Specified disease (CKD), Diagnosis stage III (moderate) Procedures Procedure Date Related Diagnosis Body Site [...] yrs. (Due fall 2012). Has done in [place].5Diverticulosis, 6mm sessile serrated adenoma ascending colon 6Excellent and stable. OK to repeat 5-10 yrs. Vital Signs Most recent to oldest [Reference Range]: 1 Weight Measured 208 lb (06/15/17 8:34 AM) Temperature Tympanic [97.9-100.6 DegF] 96.6 DegF *LOW* (06/15/17 8:34 AM) Blood Pressure [90-130/60-80 mmHg] 106/62 mmHg (06/15/17 8:34 AM) Mean Arterial Pressure 77 mmHg (06/15/17 8:34 AM) Peripheral Pulse Rate [60-100 bpm] 64 bpm (06/15/17 8:34 AM) Allergies Verified? Yes (06/15/17 8:34 AM) Medication History Verified? Yes (06/15/17 8:34 AM) Medical History Verified? Yes (06/15/17 8:34 AM) Social History Social History Type Response Smoking Status Never smoker
--- OUTSIDE RECORDS SUMMARY | 2021-12-09 11:00 | XMS_ITS | Summary of Care ---
:1935 Author Organization [facility] s Address [address] [address]- Care Team Providers Name Role Phone Panchito Varela MD Primary Care Physician Encounter 07/23/16 - 07/23/[address] [address]- Discharge Diagnosis: Type 2 diabetes mellitus with hemoglobin A1c goal of less than 7.0% Discharge Diagnosis: HTN (hypertension) Discharge Diagnosis: Bilateral cataracts Discharge Diagnosis: CKD (chronic kidney disease) stage 3, GFR 30-59 ml/min Discharge Diagnosis: Statin intolerance Attending Physician: Panchito Varela MD Referring Physician: Panchito Varela MD Vital Signs Most recent to oldest [Reference Range]: 1 Height Measured 70.5 in (07/23/16 10:59 AM) Weight Measured 206 lb (07/23/16 10:59 AM) Body Mass Index 29.14 kg/m2 (07/23/16 10:59 AM) BSA 2.15 m2 (07/23/16 10:59 AM) Blood Pressure [90-140/60-90 mmHg] 118/65 mmHg (07/23/16 10:59 AM) Mean Arterial Pressure 83 mmHg (07/23/16 10:59 AM) Peripheral Pulse Rate [60-100 bpm] 75 bpm (07/23/16 10:59 AM) Allergies Verified? Yes (07/23/16 10:59 AM) Medication History Verified? Yes (07/23/16 10:59 AM) Problem List Condition Effective Dates Status Health Status Informant CKD (chronic kidney disease) stage 3, Active GFR 30-59 ml/min(Confirmed) Chronic rhinitis(Confirmed) Active Constipation(Confirmed) Active Cystocele(Confirmed) Active B12 deficiency(Confirmed) Active Myofacial muscle pain(Confirmed)1 01/24/15 Active Generalized anxiety Active disorder(Confirmed) Benign head tremor(Confirmed) Active Dyslipidemia, goal LDL below Active 100(Confirmed) HTN (hypertension)(Confirmed) Active Impingement syndrome, Active shoulder(Confirmed)2 Uterine Prolapse(Confirmed) Active Irritable bladder(Confirmed) Active Menopause(Confirmed) 1985 Active Muscle atrophy(Confirmed) Active Nocturnal leg cramps(Confirmed) Active Osteoarthritis of Left Knee(Confirmed) Active PERSONAL HISTORY OF COLONIC Active POLYPS(Confirmed)3 Renal failure(Confirmed) Active Statin intolerance(Confirmed) Active SVT (supraventricular Active tachycardia)(Confirmed) Type 2 diabetes mellitus with Active hemoglobin A1c goal of less than 7.0%(Confirmed) 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 Vitamin D deficiency(Confirmed) Active [id number] colonoscopy q 3 yrs. Allergies, Adverse Reactions, [...] TEST FOUR TIMES A DAY OR DIRECTED [id number], # 100 unknown unit, Pharmacy: [facility] Start Date: 02/15/12 Status: Orderedbumetanide 1 mg oral tablet See Instructions, Instructions: TAKE ONE TABLET BY MOUTH ONCE DAILY, # 90 unknown unit, TAKE ONE TABLET BY MOUTH ONCE DAILY Start Date: 05/07/15 Status: OrderedCalcium 600+D See Instructions, Instructions: 1200/1000 ///Pimentel, 0 Refill(s), Type: Maintenance Start Date: 01/28/16 Status: OrderedCartia XT 240 mg/24 hours oral capsule, extended release 1 cap(s) ( 240 mg ), PO, Daily, # 90 cap(s), 3 Refill(s), Type: Maintenance, Pharmacy: [facility],1 cap(s) po daily Start Date: 07/23/16 Status: OrderedCayenne pepper drops Cayenne pepper drops, See Instructions, Instructions: 9 gtts daily, Supply, 0 Refill(s), Type: Maintenance Start Date: 01/28/16 Status: OrderedCoenzyme Q10 PO, bid, 0 Refill(s), Type: Maintenance Start Date: 03/07/09 Status: OrderedCONTOUR NEXT EZ BGM MG BEAD See Instructions, Instructions: USE DIRECTED FREE METER, # 1 unknown unit, Pharmacy: [facility], USE DIRECTED FREE METER Start Date: 05/07/15 Status: OrderedContour Next Strips and lancets Contour Next Strips and lancets, See Instructions, Instructions: test 4 x day, Supply, # 120 EA, 11 Refill(s), Type: Maintenance, Pharmacy: [facility], test 4 x day Start Date: 03/16/16 Status: OrderedEmergen-C 0 Refill(s), Type: Maintenance Start [...] 15 mL, 3 Refill(s), Type: Maintenance, Pharmacy: [id number], 9 unit(s) subcutaneous hs Start Date: 02/13/16 Status: Orderedlisinopril 40 mg oral tablet 1 tab(s) ( 40 mg ), po, daily, # 90 tab(s), 1 Refill(s), Type: Maintenance, Pharmacy: [facility] Start Date: 01/23/16 Status: OrderedmetFORMIN 500 mg oral tablet, extended release 1 tab(s) ( 500 mg ), PO, bid, # 180 tab(s), 3 Refill(s), Type: Maintenance, 1 tab(s) po bid Start Date: 10/29/15 Status: OrderedMethyl CpG (Vit B) Methyl CpG (Vit B), See Instructions, Supply, 0 Refill(s), Type: Maintenance Start Date: 01/28/16 Status: OrderedMiraLax 0 Refill(s), Type: Maintenance Start Date: 01/28/16 Status: OrderedNovoLOG PenFill 100 units/mL subcutaneous solution ( 12 unit(s) ), subcutaneous, tidac, # 2 box(es), 3 Refill(s), Type: Maintenance, Pharmacy: [facility] #[id number], 12 unit(s) subcutaneous tidac Start Date: 02/13/16 Status: Orderedpravastatin 10 mg oral tablet 1 [...] Type: Maintenance Start Date: 05/19/16 Status: OrderedVitamin B-12 ( 500 mcg ), [...] Procedure Date Related Diagnosis Body Site Colonoscopy1 06/24/16 Colonoscopy2 12/28/12 HPV - Human papillomavirus test negative3 06/19/10 Colonoscopy4, 5 11/27/09 DEXA - Dual energy X-ray photon absorptiometry6 06/22/08 Colonoscopy 2004 Left Tibia/Fibula FX 01/2002 Laparoscopic cholecystectomy 05/27/00 Adenoidectomy 1941 Tonsillectomy 1941 1Indication: Adrenomatous polyps Sedation: Versed 1 mg. Fentanyl 50 mcg Findings: Tubular adenoma, diverticulosis Rec: Repeat in 5 years.2Serrated polyp. Repeat 5 years.3Low risk for cervical cancer, but prefers annual pap screening.4Diverticulosis, 6mm sessile serrated adenoma ascending [id number] 3 yrs. (Due fall 2012). Has done in [place].6 Excellent and stable. OK to repeat 5-10 yrs. Social History Social History Type Response Smoking Status Never smoker Assessment and Plan Extracted from: Title: Preop Cats Author: Panchito Varela MD Date: 07/23/16
--- OUTSIDE RECORDS SUMMARY | 2021-12-09 11:00 | XMS_ITS | Summary of Care ---
:1935 Author Organization [facility] s Address [address] [address]- Care Team Providers Name Role Phone Panchito Varela MD Primary Care Physician Encounter 08/05/16 - 08/05/16 [facility] [address] [place] [phone]- Discharge Diagnosis: Vaginal irritation Discharge Diagnosis: Second degree uterine prolaps Attending Physician: Sera Mosley Referring Physician: Sera Mosley Vital Signs Most recent to oldest [Reference Range]: 1 Height Measured 70.5 in (08/05/16 9:29 AM) Temperature Tympanic [97.9-100.6 DegF] 98.6 DegF (08/05/16 9:29 AM) Blood Pressure [90-140/60-90 mmHg] 116/64 mmHg (08/05/16 9:29 AM) Mean Arterial Pressure 81 mmHg (08/05/16 9:29 AM) Peripheral Pulse Rate [60-100 bpm] 70 bpm (08/05/16 9:29 AM) Allergies Verified? Yes (08/05/16 9:29 AM) Medication History Verified? Yes (08/05/16 9:29 AM) Medical History Verified? No (08/05/16 9:29 AM) Problem List Condition Effective Dates Status [...] Frequent PVCs(Confirmed) Active Vitamin D deficiency(Confirmed) Active [id number] colonoscopy q 3 yrs. Allergies, Adverse Reactions, [...] TEST FOUR TIMES A DAY OR DIRECTED [phone], # 100 unknown unit, Pharmacy: [facility] Start Date: 02/15/12 Status: OrderedBD Ultra Fine III Mini Pen Needlels BD Ultra Fine III Mini Pen Needlels, See Instructions, Instructions: use as directed, Supply, # 100 EA, 3 Refill(s), Type: Maintenance, Pharmacy: [facility], use as directed Start Date: 07/24/16 Status: Orderedbumetanide 1 mg oral tablet See [...] 90 cap(s), 3 Refill(s), Type: Maintenance, Pharmacy: [facility],1 cap(s) po daily Start Date: 07/23/16 Status: OrderedCayenne pepper drops Cayenne pepper drops, See Instructions, Instructions: 9 gtts daily, Supply, 0 Refill(s), Type: Maintenance Start Date: 01/28/16 Status: OrderedCoenzyme Q10 PO, bid, 0 Refill(s), Type: Maintenance Start Date: 03/07/09 Status: OrderedCONTOUR NEXT EZ BGM MG BEAD See Instructions, Instructions: USE DIRECTED FREE METER, # 1 unknown unit, Pharmacy: [facility], USE DIRECTED FREE METER Start Date: 05/07/15 Status: OrderedContour Next Strips and lancets Contour Next Strips and lancets, See Instructions, Instructions: test 4 x day, Supply, # 120 EA, 11 Refill(s), Type: Maintenance, Pharmacy: [facility], test 4 x day Start Date: 03/16/16 Status: OrderedEmergen-C 0 Refill(s), Type: Maintenance Start Date: 05/19/16 Status: OrderedFish Oil oral capsule daily, 0 Refill(s), Type: Maintenance Start Date: 11/30/11 Status: Orderedfluconazole 100 mg oral tablet See Instructions, Instructions: take half tab now for vaginal symptoms. If tolerated well and still symptoms, repeat full tab dose after 2 days., # 1.5 tab(s), 0 Refill(s), Type: Maintenance, Pharmacy:[facility], take half tab now for vaginal symp... Start Date: 08/05/16 Status: Orderedfluconazole 150 mg oral tablet 1 tab(s) ( 150 mg ), PO, Once, # 1 tab(s), 0 Refill(s), Type: Soft Stop, Pharmacy: [facility], 1 tab(s) po once Start Date: 08/05/16 Status: OrderedHome Blood Pressure monitor Home Blood Pressure monitor, See Instructions, Instructions: Monitor BP at home, Supply, # 1 EA, 0 Refill(s), Type: Maintenance Start Date: 07/24/14 Status: OrderedLantus Solostar Pen 100 units/mL subcutaneous solution ( 9 unit(s) ), subcutaneous, hs, # 15 mL, 3 Refill(s), Type: Maintenance, Pharmacy: [facility] #[id number], 9 unit(s) subcutaneous hs Start Date: 02/13/16 Status: Orderedlisinopril 40 mg oral tablet 1 tab(s) ( 40 mg ), po, daily, # 90 tab(s), 1 Refill(s), Type: Maintenance, Pharmacy: [facility] Start Date: 01/23/16 Status: OrderedmetFORMIN 500 mg [...] Status: OrderedNovoLOG FlexPen 100 units/mL subcutaneous solution ( 9 unit(s) ), subcutaneous, tidac, # 15 mL, 1 Refill(s), Type: Maintenance, Pharmacy: [facility] Start Date: 07/24/16 Status: Orderednystatin 100,000 units/g topical cream 1 ada, TOP, TID, Instructions: to replace fluconazole apply to external vaginal area, # 30 gm, 0 Refill(s), Type: Maintenance, Pharmacy: [facility], 1 ada top tid,x14 day(s),Instr:to replace fluconazole; apply to external vaginal area Start Date: 08/05/16 Stop Date: 08/19/16 Status: Orderedpravastatin 10 mg oral tablet 1 [...] pap screening.4Diverticulosis, 6mm sessile serrated adenoma ascending [id number] 3 yrs. (Due fall 2012). Has done in [place].6 Excellent and stable. OK to repeat 5-10 yrs. Social History Social History Type Response Smoking Status Never smoker Assessment and Plan Extracted from: Title: vaginal symptoms Author: Sera Mosley Date: 07/23 06/08
--- OUTSIDE RECORDS SUMMARY | 2021-12-09 11:00 | XMS_ITS | Summary of Care ---
:1935 Author Organization [facility] s Address [facility] s - [address] [address]- Care Team Providers Name Role Phone Panchito Varela MD Primary Care Physician Encounter 11/12/15 - 11/14/15 [facility] [address] [place] [address]- Attending Physician: Panchito Varela MD Vital Signs No data available for this section Problem List Condition Effective Dates Status Health Status Informant Adenomatous Polyp of Colon(Confirmed) 2004 Active Chronic rhinitis(Confirmed) Active Controlled type 2 DM with proteinuria Active or microalbuminuria(Confirmed) Constipation(Confirmed) Active Cystocele(Confirmed) Active B12 deficiency(Confirmed) Active [...] SVT (supraventricular Active tachycardia)(Confirmed) Frequent PVCs(Confirmed) Active Vitamin D deficiency(Confirmed) Active [id number] colonoscopy q 3 yrs. Allergies, Adverse Reactions, [...] TEST FOUR TIMES A DAY OR DIRECTED [id number], # 100 unknown unit, Pharmacy: [facility] Start Date: 02/15/12 Status: OrderedBD ULTRA ULTRA=FINE 111 MINI PEN NEEDLES BD ULTRA ULTRA=FINE 111 MINI PEN NEEDLES, See Instructions, Instructions: INJECT DIRECTED, Supply, # 100 EA, 6 Refill(s), Type: Maintenance, [facility]: [facility], INJECT DIRECTED Start Date: 07/04/15 Status: OrderedBD ULTRA-FINE III MINI PEN NEEDLES MG INJECTABLE See Instructions, Instructions: INJECT DIRECTED, # 200 EA, 5 Refill(s), Pharmacy: [facility], INJECT DIRECTED [id number] Start Date: 09/26/13 Status: Orderedbumetanide 1 mg oral tablet See Instructions, Instructions: TAKE ONE TABLET BY MOUTH ONCE DAILY, # 90 unknown unit, Pharmacy: [facility], TAKE ONE TABLET BY MOUTH ONCE DAILY Start Date: 05/07/15 Status: OrderedCalcium with Vitamin D and K oral tablet 1 tab(s), po, bid, 0 Refill(s), Type: Maintenance Start Date: 11/30/11 Status: OrderedCartia XT 300 mg/24 hours oral capsule, extended release See Instructions, Instructions: TAKE ONE CAPSULE BY MOUTH ONCE DAILY -DOSE INCREASE 09/04/2014, # 90 unknown unit, 3 Refill(s), Type: Soft Stop, Pharmacy: [facility], TAKE ONE CAPSULE BY MOUTH ONCE DAILY -DOSE INCREASE 09/04/2014 Start Date: 11/04/15 Status: OrderedCoenzyme Q10 PO, Daily, 0 Start Date: 03/07/09 Status: OrderedCONTOUR NEXT EZ BGM MG BEAD See Instructions, Instructions: USE DIRECTED FREE METER, # 1 unknown unit, Pharmacy: [facility], USE DIRECTED FREE METER Start Date: 05/07/15 Status: OrderedFish Oil oral capsule 3-4x/wk, 0 Refill(s), Type: Maintenance Start Date: 11/30/11 Status: OrderedFlonase 50 mcg/inh nasal spray 2 spray(s), nasal, daily, # 1 EA, 11 Refill(s), Type: Maintenance, [facility]acy: [facility], 2 spray(s) nasal daily Start Date: 06/13/15 Status: OrderedHome Blood Pressure monitor Home Blood Pressure monitor, See Instructions, Instructions: Monitor BP at home, Supply, # 1 EA, 0 Refill(s), Type: Maintenance Start Date: 07/24/14 Status: OrderedLanbridgett Solostar Pen 100 units/mL subcutaneous solution ( 12 unit(s) ), subcutaneous, hs, # 10 mL, 11 Refill(s), Type: Maintenance, Pharmacy: [facility], 12 unit(s) subcutaneous hs Start Date: 07/04/15 Status: Orderedlisinopril 40 mg oral tablet See Instructions, Instructions: TAKE ONE TABLET BY MOUTH ONCE DAILY, # 90 unknown unit, 1 Refill(s),Type: Soft Stop, Pharmacy: [facility], TAKE ONE TABLET BY MOUTH ONCE DAILY Start Date: 07/30/15 Status: OrderedmetFORMIN 500 mg oral tablet, extended release 1 tab(s) ( 500 mg ), PO, bid, # 180 tab(s), 3 Refill(s), Type: Maintenance, Pharmacy: [facility], 1 tab(s) po bid Start Date: 10/29/15 Status: OrderedNOVA MAX STRIPS NOVA MAX STRIPS, See Instructions, Instructions: TEST 4 X Day, Supply, # 2 box(es), 1 Refill(s), Type: Maintenance, Pharmacy: [id number], TEST 4 X Day Start Date: 02/05/15 Status: OrderedNOVA MAX STRIPS MG APPLY See Instructions, Instructions: TEST FOUR TIMES A DAY OR DIRECTED, # 100 unknown unit, 11 Refill(s), Pharmacy: [facility], TEST FOUR TIMES A DAY OR DIRECTED Start Date: 02/19/14 Status: OrderedNovoLOG PenFill 100 units/mL subcutaneous solution ( 9 unit(s) ), subcutaneous, tidac, # 15 mL, 11 Refill(s), Type: Maintenance, Pharmacy: [facility], 9 unit(s) subcutaneous tidac Start Date: 07/04/15 Status: Orderedpravastatin 10 mg oral tablet See Instructions, Instructions: TAKE ONE TABLET BY MOUTH ONCE ON MONDAYS, WEDNESDAYS, AND FRIDAYS, #39 unknown unit, 1 Refill(s), Type: Soft Stop, Pharmacy: [facility], TAKE ONE TABLET BY MOUTH ONCEON MONDAYS, WEDNESDAYS, AND FRIDAYS Start Date: 07/30/15 Status: OrderedPreserVision AREDS 2 1 cap(s), po, daily, 0 Refill(s), Type: Maintenance Start Date: 10/08/14 Status: OrderedVitamin B-12 0 Refill(s), Type: Maintenance Start Date: 10/29/15 Status: Ordered Results No data available for [...] 01/2002 Laparoscopic cholecystectomy 05/27/00 Adenoidectomy 194 Tonsillectomy 194 1Serrated polyp. Repeat 5 years.2Low risk for cervical cancer, but prefers annual pap screening.3Diverticulosis, 6mm sessile serrated adenoma ascending [id number] 3 yrs. (Due fall 2012). Has done in [place].5Excellent and stable. OK to repeat 5-10 yrs. Social History Social History Type Response Smoking Status Never smoker Assessment and Plan No data available for this section
--- OUTSIDE RECORDS SUMMARY | 2021-12-09 11:00 | XMS_ITS | Summary of Care ---
:1935 Author Organization [facility] s Address [address] [address]- Care Team Providers Name Role Phone Panchito Varela MD Primary Care Physician Encounter 06/13/15 - 06/15/[address] [address]- Discharge Diagnosis: Dyslipidemia, goal LDL below 100 Discharge Diagnosis: HTN (hypertension) Discharge Diagnosis: Frequent PVCs Discharge Diagnosis: Statin intolerance Discharge Diagnosis: Dyslipidemia, goal LDL below 100 Discharge Diagnosis: Controlled type 2 DM with microalbuminuria or microproteinuria Discharge Diagnosis: Osteoarthritis of Left Knee Discharge Diagnosis: Chronic rhinitis Discharge Diagnosis: Statin intolerance Discharge Diagnosis: Diabetes mellitus type II Discharge Diagnosis: Osteoarthritis of Left Knee Discharge Diagnosis: HTN (hypertension) Attending Physician: Panchito Varela MD Vital Signs Most recent to oldest [Reference Range]: 1 Height 70.5 in (06/13/15 9:03 AM) Weight 201 lb (06/13/15 9:03 AM) Body Mass Index 28.43 kg/m2 (06/13/15 9:03 AM) BSA 2.13 m2 (06/13/15 9:03 AM) Blood Pressure [90-140/60-90 mmHg] 136/78 mmHg (06/13/15 9:03 AM) Mean Arterial Pressure 97 mmHg (06/13/15 9:03 AM) Peripheral Pulse Rate [60-100 bpm] 71 bpm (06/13/15 9:03 AM) Problem List Condition Effective Dates Status Health Status Informant Adenomatous Polyp of Colon(Confirmed) 2004 Active Chronic rhinitis(Confirmed) Active Controlled type 2 DM with proteinuria Active or microalbuminuria(Confirmed) Cystocele(Confirmed) Active Diabetes mellitus type II(Confirmed) Active Myofacial muscle pain(Confirmed)1 01/24/15 Active Dyslipidemia, goal LDL below Active 100(Confirmed) HTN (hypertension)(Confirmed) Active Impingement syndrome, Active shoulder(Confirmed)2 Uterine Prolapse(Confirmed) Active Irritable bladder(Confirmed) Active Menopause(Confirmed) 1984 Active Nocturnal leg cramps(Confirmed) Active Osteoarthritis of Left Knee(Confirmed) Active PERSONAL HISTORY OF COLONIC Active POLYPS(Confirmed)3 Statin intolerance(Confirmed) Active SVT (supraventricular Active tachycardia)(Confirmed) Frequent PVCs(Confirmed) Active [id number] colonoscopy q 3 yrs. Allergies, Adverse Reactions, Alerts Substance Reaction Severity Status flaygl Hives Active sulfa drug Hives Active Medications aspirin 81 mg oral tablet 3 tab(s) ( 243 mg ), po, daily, 0 Refill(s), Type: Maintenance Start Date: 10/08/14 Status: OrderedBD ULTRA FINE 33 G LANCETS MG APPLY See Instructions, Instructions: TEST FOUR TIMES A DAY OR DIRECTED [phone], # 100 unknown unit, Pharmacy: [facility] Start Date: 02/15/12 Status: OrderedBD ULTRA ULTRA=FINE 111 MINI PEN NEEDLES BD ULTRA ULTRA=FINE 111 MINI PEN NEEDLES, See Instructions, Instructions: INJECT DIRECTED, Supply, # 100 EA, 6 Refill(s), Type: Maintenance Start Date: 01/21/15 Status: OrderedBD ULTRA-FINE III MINI PEN NEEDLES MG INJECTABLE See Instructions, Instructions: INJECT DIRECTED [id number], # 100 unknown unit, 5 Refill(s), [facility]: [facility], INJECT DIRECTED [id number] Start Date: 09/26/13 Status: Orderedbumetanide 1 mg oral tablet See Instructions, Instructions: TAKE ONE TABLET BY MOUTH ONCE DAILY, # 90 unknown unit, Pharmacy: [facility], TAKE ONE TABLET BY MOUTH ONCE DAILY Start Date: 05/07/15 Status: OrderedCalcium with Vitamin D and K oral tablet 1 tab(s), po, bid, 0 Refill(s), Type: Maintenance Start Date: 11/30/11 Status: OrderedCoenzyme Q10 PO, Daily, 0 Start Date: 03/07/09 Status: OrderedCONTOUR NEXT EZ BGM MG BEAD See Instructions, Instructions: USE DIRECTED FREE METER, # 1 unknown unit, Pharmacy: [facility], USE DIRECTED FREE METER Start Date: 05/07/15 Status: OrderedDiltiazem Hydrochloride XR 300 mg/24 hours oral capsule, extended release 1 cap(s) ( 300 mg ), po, daily, # 90 cap(s), 1 Refill(s), Type: Maintenance Start Date: 01/21/15 Status: OrderedFish Oil oral capsule 3-4x/wk, 0 Refill(s), Type: Maintenance Start Date: 11/30/11 Status: OrderedFlonase 50 mcg/inh nasal spray 2 spray(s), nasal, daily, # 1 EA, 11 Refill(s), Type: Maintenance, Pharmacy: [facility], 2 spray(s) nasal daily Start Date: 06/13/15 Status: OrderedHome Blood Pressure monitor Home Blood Pressure monitor, See Instructions, Instructions: Monitor BP at home, Supply, # 1 EA, 0 Refill(s), Type: Maintenance Start Date: 07/24/14 Status: Orderedlisinopril 40 mg oral tablet 1 tab(s) ( 40 mg ), po, daily, # 90 tab(s), 1 Refill(s), Type: Maintenance, 1 tab(s) po daily Start Date: 01/21/15 Status: Orderedmetformin 500 mg oral tablet 2 tab(s) ( 1,000 mg ), PO, BID, # 360 tab(s), 1 Refill(s), Type: Maintenance, 2 tab(s) po bid Start Date: 01/21/15 Status: OrderedNOVA MAX STRIPS NOVA MAX STRIPS, See Instructions, Instructions: TEST 4 X Day, Supply, # 2 box(es), 1 Refill(s), Type: Maintenance, Pharmacy: [id number], TEST 4 X Day Start Date: 02/05/15 Status: OrderedNOVA MAX STRIPS MG APPLY See Instructions, Instructions: TEST FOUR TIMES A DAY OR DIRECTED, # 100 unknown unit, 11 Refill(s), Pharmacy: [facility], TEST FOUR TIMES A DAY OR DIRECTED Start Date: 02/19/14 Status: OrderedNovoLog Mix 70/30 FlexPen subcutaneous suspension See Instructions, Instructions: 14-16 UNITS TWICE DAILY subcutaneous bidac, # 15 mL, 2 Refill(s), Type: Maintenance, as directed Start Date: 01/21/15 Status: Orderedpravastatin 10 mg oral tablet 1 tab(s) ( 10 mg ), po, mwf, # 39 tab(s), 1 Refill(s), Type: Maintenance, 1 tab(s) po mwf Start Date: 01/21/15 Status: OrderedPreserVision AREDS 2 1 cap(s), po, daily, 0 Refill(s), Type: Maintenance Start Date: 10/08/14 Status: Ordered Results No data available for this section Immunizations Given and Recorded Vaccine Date Status Refusal Reason influenza virus vaccine, inactivated 10/30/14 Given influenza virus vaccine, inactivated 11/15/13 Given influenza virus vaccine, inactivated 11/20/11 Given influenza virus vaccine, inactivated 11/11/10 Given influenza virus vaccine, inactivated 11/11/09 Given pneumococcal (PCV13) 01/12/14 Given influenza 11/07/12 Given influenza 11/08/08 Recorded influenza 11/22/96 Recorded tetanus/diphth/pertuss (Tdap) adult/adol 08/17/11 Recorde d DTaP 08/17/11 Recorded ZOS, shingles 12/20/07 Recorded Td 09/23/03 [...] pap screening.3Diverticulosis, 6mm sessile serrated adenoma ascending [id number] 3 yrs. (Due fall 2012). Has done in [place].5Excellent and stable. OK to repeat 5-10 yrs. Social History Social History Type Response Smoking Status Never smoker Assessment and Plan Extracted from: Title: DM Author: Panchito Varela MD Date: 06/13/15 Impression and Plan Diagnosis Dyslipidemia, goal LDL below 100 (ICD10- CM E78.5). Controlled type 2 DM with microalbuminur ia or microproteinuria (ZOW92-UG E11.9). HTN (hypertension) (OPO18-UZ I10). Osteoarthritis of Left Knee (PHB20-MA M1 7.9). Statin intolerance (FVQ60-ZL Z88.9). Frequent PVCs (HOH66-KG I49.3). Course: Good response to treatment. Orders Orders (Selected) Outpatient Orders Ordered Return to Clinic (Request): RFV: Catarina solano, Return in 6 months, Instructions: after lab Return to Clinic (Request): Return in 1 year w/ D. Barry bring meter and log Return to Clinic: RFV: Lab standing orde r: MATIAS,lipid q12mo Hgb A1C ,BMP, lipids q6mo. Patient Instructions: Counseled: Patient , Diet, Activity, Verbalized understanding, weight loss. Diagnosis Chronic rhinitis (WXF50-XX J31.0). Course: Improving: none. Orders Orders (Selected) Prescriptions Prescribed Flonase 50 mcg/inh nasal spray: 2 spray( s), nasal, daily, # 1 EA, 11 Refill(s), Type: Maintenance, Pharmacy: [facility], 2 spray(s) nasal daily.
--- OUTSIDE RECORDS SUMMARY | 2021-12-09 11:00 | XMS_ITS | Summary of Care ---
:[address] [facility] s Address [facility] s - [address] [address]- Care Team Providers Name Role Phone Panchito Varela MD Primary Care Physician Encounter 06/06/15 - 06/08/15 [facility] [address] [place] [address]- Attending Physician: Panchito Varela MD Vital Signs [...] SVT (supraventricular Active tachycardia)(Confirmed) Frequent PVCs(Confirmed) Active [id number] colonoscopy q 3 yrs. Allergies, Adverse Reactions, Alerts Substance Reaction Severity Status flaygl Hives Active sulfa drug Hives Active Medications aspirin 81 mg oral tablet 3 tab(s) ( 243 mg ), po, daily, 0 Refill(s), Type: Maintenance Start Date: 10/08/14 Status: OrderedBD ULTRA FINE 33 G LANCETS MG APPLY See Instructions, Instructions: TEST FOUR TIMES A DAY OR DIRECTED [phone], # 100 unknown unit, Pharmacy: [facility] Start Date: 02/15/12 Status: OrderedBD ULTRA ULTRA=FINE 111 MINI PEN NEEDLES BD ULTRA ULTRA=FINE 111 MINI PEN NEEDLES, See Instructions, Instructions: INJECT DIRECTED, Supply, # 100 EA, 6 Refill(s), Type: Maintenance Start Date: 01/21/15 Status: OrderedBD ULTRA-FINE III MINI PEN NEEDLES MG INJECTABLE See Instructions, Instructions: INJECT DIRECTED [id number], # 100 unknown unit, 5 Refill(s), Pharmacy: [facility], INJECT DIRECTED [id number] Start Date: 09/26/13 Status: Orderedbumetanide 1 mg [...] FREE METER, # 1 unknown unit, Pharmacy: [facility], USE DIRECTED FREE METER Start Date: 05/07/15 [...] 2 box(es), 1 Refill(s), Type: Maintenance, Pharmacy: [facility] #[id number], TEST 4 X Day Start Date: 02/05/15 Status: OrderedNOVA MAX STRIPS MG APPLY See Instructions, Instructions: TEST FOUR TIMES A DAY OR DIRECTED, # 100 unknown unit, 11 Refill(s), Pharmacy: [facility], TEST FOUR TIMES A DAY OR DIRECTED [...] pap screening.3Diverticulosis, 6mm sessile serrated adenoma ascending [id number] 3 yrs. (Due fall 2012). Has done in [place].5Excellent and stable. OK to repeat 5-10 yrs. Social History Social History Type Response Smoking Status Never smoker Assessment and Plan No data available for this section
--- OUTSIDE RECORDS SUMMARY | 2021-12-09 11:00 | XMS_ITS | Summary of Care ---
:1935 Author Organization [facility] s Address [address] [address]- Care Team Providers Name Role Phone Panchito Varela MD Primary Care Physician Encounter 11/25/15 - 11/27/[address] [facility] [address] [place] [address]- Discharge Diagnosis: Diabetes mellitus type II Discharge Diagnosis: Dyslipidemia, goal LDL below 100 [...] Frequent PVCs(Confirmed) Active Vitamin D deficiency(Confirmed) Active [id number] colonoscopy q 3 yrs. Allergies, Adverse Reactions, [...] TEST FOUR TIMES A DAY OR DIRECTED [phone], # 100 unknown unit, Pharmacy: [facility] Start Date: 02/15/12 Status: OrderedBD ULTRA ULTRA=FINE 111 MINI PEN NEEDLES BD ULTRA ULTRA=FINE 111 MINI PEN NEEDLES, See Instructions, Instructions: INJECT DIRECTED, Supply, # 100 EA, 6 Refill(s), Type: Maintenance, [facility], INJECT DIRECTED Start Date: 07/04/15 Status: OrderedBD ULTRA-FINE III MINI PEN NEEDLES MG INJECTABLE See Instructions, Instructions: INJECT DIRECTED, # 200 EA, 5 Refill(s), Pharmacy: [facility], INJECT DIRECTED [id number] Start Date: 09/26/13 Status: Orderedbumetanide 1 mg oral tablet See Instructions, Instructions: TAKE ONE TABLET BY MOUTH ONCE DAILY, # 90 unknown unit, Pharmacy: [facility], TAKE ONE TABLET BY MOUTH ONCE DAILY Start Date: 05/07/15 Status: OrderedCalcium with Vitamin D and K oral tablet 1 tab(s), po, bid, 0 Refill(s), Type: Maintenance Start Date: 11/30/11 Status: OrderedCartia XT 300 mg/24 hours oral capsule, extended release See Instructions, Instructions: TAKE ONE CAPSULE BY MOUTH ONCE DAILY -DOSE INCREASE 09/04/2014, # 90 unknown unit, 3 Refill(s), Type: Soft Stop, [facility]acy: [facility], TAKE ONE CAPSULE BY MOUTH ONCE DAILY -DOSE INCREASE 09/04/2014 Start Date: 11/04/15 Status: OrderedCoenzyme Q10 PO, Daily, 0 Start Date: 03/07/09 Status: OrderedCONTOUR NEXT EZ BGM MG BEAD See Instructions, Instructions: USE DIRECTED FREE METER, # 1 unknown unit, Pharmacy: [facility], USE DIRECTED FREE METER Start Date: [...] Refill(s), Type: Maintenance Start Date: 07/24/14 Status: OrderedRonnyus Parrishar Pen 100 units/mL subcutaneous solution ( 12 unit(s) ), subcutaneous, hs, # 10 mL, 11 Refill(s), Type: Maintenance, [facility], 12 unit(s) subcutaneous hs Start Date: 07/04/15 Status: Orderedlisinopril 40 mg oral tablet See Instructions, Instructions: TAKE ONE TABLET BY MOUTH ONCE DAILY, # 90 unknown unit, 1 Refill(s),Type: Soft Stop, [facility]acy: [facility], TAKE ONE TABLET BY MOUTH ONCE DAILY Start Date: 07/30/15 Status: OrderedmetFORMIN 500 mg oral tablet, extended release 1 tab(s) ( 500 mg ), PO, bid, # 180 tab(s), 3 Refill(s), Type: Maintenance, [facility]: [facility], 1 tab(s) po bid Start Date: 10/29/15 Status: OrderedNOVA MAX STRIPS NOVA MAX STRIPS, See Instructions, Instructions: TEST 4 X Day, Supply, # 2 box(es), 1 Refill(s), Type: Maintenance, Pharmacy: [facility] #[id number], TEST 4 X [...] 15 mL, 11 Refill(s), Type: Maintenance, Pharmacy: [facility], 9 unit(s) subcutaneous tidac Start Date: 07/04/15 Status: Orderedpravastatin 10 mg oral tablet See Instructions, Instructions: TAKE ONE TABLET BY MOUTH ONCE ON MONDAYS, WEDNESDAYS, AND FRIDAYS, #39 unknown unit, 1 Refill(s), Type: Soft Stop, Pharmacy: [facility], TAKE ONE TABLET BY MOUTH ONCEON MONDAYS, [...] pap screening.3Diverticulosis, 6mm sessile serrated adenoma ascending [id number] 3 yrs. (Due fall 2012). Has done in [place].5Excellent and stable. OK to repeat 5-10 yrs. Social History Social History Type Response Smoking Status Never smoker Assessment and Plan No data available for this section
--- OUTSIDE RECORDS SUMMARY | 2021-12-09 11:00 | XMS_ITS | Continuity of Care Document ---
:1935 Author Organization [facility] Address [facility] [address] [place] [address]- Encounter 11/19/20 - 11/21/20 [facility] [address], [place] [address] Attending Physician: Stephen Kuo MD Allergies, Adverse Reactions, Alerts Substance Reaction Severity Status flaygl Hives Active statins Active sulfa drug Hives Active nitroimidazole amebicides Active Immunizations Given and Recorded Vaccine Date [...] 01/23/96 Recorded 1Result Comment: [11/17/2017] Received at [id number] Comment: [10/12/2017] [place] [facility] [place] Ambien 5 mg oral tablet 1 tab(s) ( 5 mg ), po, hs, # 30 tab(s), 0 Refill(s), Type: Maintenance, called to pharmacy (Rx) Start Date: 03/20/11 Stop Date: 08/02/13 Status: Discontinuedamlodipine 5 mg oral tablet 1 tab(s) ( 5 mg ), PO, Daily, Instructions: D/C Diltiazem, # 30 tab(s), 11 Refill(s), Type: Maintenance, Pharmacy: [facility] Start Date: 05/19/12 Stop Date: 07/26/12 Status: Discontinuedamlodipine 5 mg oral tablet 1 tab(s) ( 5 mg ), PO, Daily, Instructions: Discontinue Metoprolol, # 30 tab(s), 11 Refill(s), Type:Maintenance, Pharmacy: [facility], 1 tab(s) po daily,Instr:Discontinue Metoprolol Start Date: 07/23/14 Stop Date: 07/24/14 Status: Discontinuedaspirin 81 mg oral tablet 1 tab(s) ( 81 mg ), PO, Daily, 0 Start Date: 03/07/09 Stop Date: 03/08/12 Status: Discontinuedaspirin 81 mg oral tablet 1 tab(s) ( 81 mg ), po, daily, 0 Refill(s), Type: Maintenance Start Date: 10/08/14 Status: OrderedBD ULTRA FINE 33 G LANCETS MG APPLY See Instructions, Instructions: TEST FOUR TIMES A DAY OR DIRECTED [phone], # 100 unknown unit, 11 Refill(s), Pharmacy: [facility] Start Date: 06/19/10 Stop Date: 08/02/13 Status: DiscontinuedBD ULTRA ULTRA=FINE 111 MINI PEN NEEDLES BD ULTRA ULTRA=FINE 111 MINI PEN NEEDLES, See Instructions, Instructions: INJECT DIRECTED, Supply, # 100 EA, 6 Refill(s), Type: Maintenance Start Date: 02/04/16 Stop Date: 07/23/16 Status: DiscontinuedBD ULTRA-FINE III MINI PEN NEEDLESMG INJECTABLE See Instructions, Instructions: INJECT DIRECTED [id number], # 100 EA, Pharmacy: [facility] Start Date: 02/15/12 Stop Date: 08/02/13 Status: Discontinuedbumetanide 1 mg oral tablet See Instructions, Instructions: TAKE ONE TABLET BY MOUTH ONCE DAILY, # 90 unknown unit, TAKE ONE TABLET BY MOUTH ONCE DAILY Start Date: 05/07/15 Status: Orderedbumetanide 1 mg oral tablet 1 tab(s) ( 1 mg ), po, daily, # 90 tab(s), 3 Refill(s), Type: Maintenance Start Date: 02/13/14 Stop Date: 02/13/14 Status: Discontinuedbumetanide 1 mg oral tablet See Instructions, Instructions: TAKE ONE TABLET BY MOUTH ONCE DAILY, # 90 unknown unit, 3 Refill(s),Pharmacy: [facility] Start Date: 08/18/12 Stop Date: 02/02/13 Status: DiscontinuedBumex 0.5 mg oral tablet 1 tab(s) ( 0.5 mg ), PO, Daily, # 90 tab(s), 3 Refill(s), Type: Soft Stop, Pharmacy: [facility] Start Date: 03/21/12 Stop Date: 05/19/12 Status: DiscontinuedCartia XT 240 mg/24 hours oral capsule, extended release 1 cap(s) ( 240 mg ), PO, Daily, # 90 cap(s), 3 Refill(s), Type: Maintenance, Pharmacy: [facility],1 cap(s) po daily Start Date: 07/23/16 Stop [...] 90 cap(s), 3 Refill(s), Type: Maintenance, Pharmacy: [facility] Start Date: 03/22/12 Stop Date: 05/19/12 [...] 11/30/11 Status: OrderedFlonase 0.05 mg/inh nasal spray 1 spray(s), nasal, daily, # 1 EA, 0 Refill(s), Pharmacy: [facility] Start Date: 11/13/09 Stop Date: 09/02/10 Status: DiscontinuedFlonase 0.05 mg/inh nasal spray 2 spray(s), Nasal, Daily, # 1 EA, 11 Refill(s), Type: Maintenance, Pharmacy: [facility] Start Date: 08/07/10 Stop Date: 08/02/13 Status: DiscontinuedFoltx oral tablet See Instructions, Instructions: TAKE ONE TABLET BY MOUTH ONCE DAILY, # 90 unknown unit, 3 Refill(s),Pharmacy: [facility] Start Date: 08/18/12 Stop Date: 08/02/13 Status: Discontinuedfurosemide 40 mg oral tablet 1 tab(s) ( 40 mg ), PO, Daily, # 90 tab(s), 0 Refill(s), Type: Maintenance, Pharmacy: [facility], 1 tab(s) po daily Start Date: 04/24/13 Stop Date: 08/02/13 Status: DiscontinuedHumulin 70/30 Pen subcutaneous suspension See Instructions, Instructions: INJECT DIRECTED, # 45 unknown unit, 2 Refill(s), Pharmacy: [facility], INJECT DIRECTED Start Date: 06/19/14 Stop Date: [...] 15 mL, 3 Refill(s), Type: Maintenance, Pharmacy: [facility] #[id number], 9 unit(s) subcutaneous hs Start Date: 02/13/16 Status: Orderedlisinopril 20 mg oral tablet 1 tab(s) ( 20 mg ), po, daily, 0 Refill(s), Type: Maintenance Start Date: 03/21/12 Stop Date: 03/21/12 Status: Discontinuedlisinopril 20 mg oral tablet 0.5 tab(s) ( 10 mg ), PO, Daily, # 30 tab(s), 0 Refill(s), Type: Maintenance Start Date: 12/08/16 Status: Orderedlisinopril 20 mg oral tablet 2 tab(s) ( 40 mg ), PO, daily, 0 Refill(s), Type: Maintenance Start Date: 04/24/11 Stop Date: 04/24/11 Status: Discontinuedlisinopril 40 mg oral tablet 1 tab(s) ( 40 mg ), po, daily, # 30 tab(s), 0 Refill(s), Type: Maintenance, Pharmacy: [facility], due for visit Start Date: 12/02/16 Stop [...] daily, # 90 tab(s), 3 Refill(s), Pharmacy: [facility] Start Date: 11/30/11 Stop Date: 12/11/11 Status: Discontinuedlovastatin 20 mg oral tablet 1 tab(s) ( 20 mg ), po, daily, # 90 tab(s), 1 Refill(s), Pharmacy: [facility] Start Date: 09/02/10 Stop Date: 09/02/10 Status: [...] unknown unit, 0 Refill(s), Type: Maintenance, Pharmacy: [facility] Start Date: 11/03/16 Status: OrderedNovoLog Mix 70/30 [...] unknown unit, 1 Refill(s), Type: Maintenance, Pharmacy: [facility] Start Date: 01/23/16 Stop Date: 01/28/16 [...] 30 tab(s), 11 Refill(s), Type: Maintenance, Pharmacy: [facility], 1tab(s) po qpm Start Date: 07/10/14 [...] Frequent PVCs(Confirmed) Active Vitamin D deficiency(Confirmed) Active [id number] colonoscopy q 3 yrs.3both Procedures Procedure Date [...] yrs. (Due fall 2012). Has done in [place].5Diverticulosis, 6mm sessile serrated adenoma ascending colon 6Excellent and stable. OK to repeat 5-10 yrs. Social History Social History Type Response Smoking Status Never smoker Sex Female
--- OUTSIDE RECORDS SUMMARY | 2021-12-09 11:00 | XMS_ITS | Summary of Care ---
:1935 Author Organization [facility] s Address [address] [address]- Care Team Providers Name Role Phone Panchito Varela MD Primary Care Physician Encounter 06/13/15 - 06/15/[address] [address]- Discharge Diagnosis: Dyslipidemia, goal LDL below 100 [...] SVT (supraventricular Active tachycardia)(Confirmed) Frequent PVCs(Confirmed) Active [id number] colonoscopy q 3 yrs. Allergies, Adverse Reactions, Alerts Substance Reaction Severity Status flaygl Hives Active sulfa drug Hives Active Medications aspirin 81 mg oral tablet 3 tab(s) ( 243 mg ), po, daily, 0 Refill(s), Type: Maintenance Start Date: 10/08/14 Status: OrderedBD ULTRA FINE 33 G LANCETS MG APPLY See Instructions, Instructions: TEST FOUR TIMES A DAY OR DIRECTED [phone], # 100 unknown unit, Pharmacy: [facility] Start Date: 02/15/12 Status: OrderedBD ULTRA ULTRA=FINE 111 MINI PEN NEEDLES BD ULTRA ULTRA=FINE 111 MINI PEN NEEDLES, See Instructions, Instructions: INJECT DIRECTED, Supply, # 100 EA, 6 Refill(s), Type: Maintenance Start Date: 01/21/15 Status: OrderedBD ULTRA-FINE III MINI PEN NEEDLES MG INJECTABLE See Instructions, Instructions: INJECT DIRECTED [id number], # 100 unknown unit, 5 Refill(s), [facility]: [facility], INJECT DIRECTED [id number] Start Date: 09/26/13 Status: Orderedbumetanide 1 mg oral tablet See Instructions, Instructions: TAKE ONE TABLET BY MOUTH ONCE DAILY, # 90 unknown unit, Pharmacy: [facility], TAKE ONE TABLET BY MOUTH ONCE DAILY Start Date: 05/07/15 Status: OrderedCalcium with Vitamin D and K oral tablet 1 tab(s), po, bid, 0 Refill(s), Type: Maintenance Start Date: 11/30/11 Status: OrderedCoenzyme Q10 PO, Daily, 0 Start Date: 03/07/09 Status: OrderedCONTOUR NEXT EZ BGM MG BEAD See Instructions, Instructions: USE DIRECTED FREE METER, # 1 unknown unit, Pharmacy: [facility], USE DIRECTED FREE METER Start Date: 05/07/15 [...] 2 box(es), 1 Refill(s), Type: Maintenance, Pharmacy: [facility] #[id number], TEST 4 X Day Start [...] pap screening.3Diverticulosis, 6mm sessile serrated adenoma ascending [id number] 3 yrs. (Due fall 2012). Has done in [place].5Excellent and stable. OK to repeat 5-10 yrs. Social History Social History Type Response Smoking Status Never smoker Assessment and Plan Extracted from: Title: DM Author: Panchito Varela MD Date: 06/13/15 Impression and Plan Diagnosis Dyslipidemia, goal LDL below 100 (ICD10- CM E78.5). Controlled type 2 DM with microalbuminur ia or microproteinuria (WIE07-PC E11.9). HTN (hypertension) (RPV81-LR I10). Osteoarthritis of Left Knee (EDW47-FI M1 7.9). Statin intolerance (DRW27-KW Z88.9). 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 Course: Good response to treatment. Orders [...] Verbalized understanding, weight loss. Diagnosis Chronic rhinitis (GPG13-SA J31.0). Course: Improving: none. Orders Orders (Selected) Prescriptions Prescribed Flonase 50 mcg/inh nasal spray: 2 spray( s), nasal, daily, # 1 EA, 11 Refill(s), Type: Maintenance, Pharmacy: [facility], 2 spray(s) nasal daily.
--- OUTSIDE RECORDS SUMMARY | 2021-12-09 11:00 | XMS_ITS | Summary of Care ---
:1935 Author Organization [facility] s Address [facility] - [address] [address]- Care Team Providers Name Role Phone Isak Rae MD Primary Care Physician Encounter 12/08/16 - 12/08/[address] [address]- Attending Physician: Isak Rae MD Referring Physician: Isak Rae MD Vital Signs Most recent to oldest [Reference Range]: 1 Height Measured 70.5 in (12/08/16 3:09 PM) Weight Measured 202.2 lb (12/08/16 3:09 PM) Body Mass Index 28.6 kg/m2 (12/08/16 3:09 PM) BSA 2.13 m2 (12/08/16 3:09 PM) Temperature Tympanic [97.9-100.6 DegF] 97.6 DegF *LOW* (12/08/16 3:09 PM) Blood Pressure [90-140/60-90 mmHg] 93/62 mmHg (12/08/16 3:09 PM) Mean Arterial Pressure 72 mmHg (12/08/16 3:09 PM) Peripheral Pulse Rate [60-100 bpm] 87 bpm (12/08/16 3:09 PM) Allergies Verified? Yes (12/08/16 3:09 PM) Medication History Verified? Yes (12/08/16 3:09 PM) Medical History Verified? No (12/08/16 3:09 PM) Problem List Condition Effective Dates Status [...] Frequent PVCs(Confirmed) Active Vitamin D deficiency(Confirmed) Active [id number] colonoscopy q 3 yrs.3both Allergies, Adverse Reactions, Alerts Substance Reaction Severity Status flaygl Hives Active sulfa drug Hives Active nitroimidazole amebicides Active statins Active Medications aspirin 81 mg oral tablet 1 tab(s) ( 81 mg ), po, daily, 0 Refill(s), Type: Maintenance Start Date: 10/08/14 Status: OrderedBD ULTRA FINE 33 G LANCETS MG APPLY See Instructions, Instructions: TEST FOUR TIMES A DAY OR DIRECTED [id number], # 100 unknown unit, Pharmacy: [email or web address] Start Date: 02/15/12 Status: OrderedBD Ultra Fine III Mini Pen Needlels BD Ultra Fine III Mini Pen Needlels, See Instructions, Instructions: use as directed, Supply, # 100 EA, 3 Refill(s), Type: Maintenance, Pharmacy: [email or web address], use as directed Start Date: 07/24/16 Status: Orderedbumetanide 1 mg oral tablet See Instructions, Instructions: TAKE ONE TABLET BY MOUTH ONCE DAILY, # 90 unknown unit, TAKE ONE TABLET BY MOUTH ONCE DAILY Start Date: 05/07/15 Status: OrderedCalcium 600+D See Instructions, Instructions: 1200/1000 ///, 0 Refill(s), Type: Maintenance Start Date: 01/28/16 Status: OrderedCayenne pepper drops Cayenne pepper drops, [...] 120 EA, 11 Refill(s), Type: Maintenance, Pharmacy: [facility], test 4 x day Start Date: 03/16/16 Status: OrdereddilTIAZem 180 mg/24 hours oral capsule, extended release 1 cap(s) ( 180 mg ), PO, Daily, # 30 cap(s), 0 Refill(s), Type: Maintenance Start Date: 12/08/16 Status: OrderedEmergen-C 0 Refill(s), Type: Maintenance Start Date: 05/19/16 Status: OrderedFish Oil oral capsule daily, 0 Refill(s), Type: Maintenance Start Date: 11/30/11 Status: Orderedfluticasone 50 mcg/inh nasal spray See Instructions, Instructions: INHALE 2 SPRAYS IN EACH NOSTRIL ONCE DAILY, # 16 unknown unit, 5 Refill(s), Type: Soft Stop, Pharmacy: [facility], INHALE 2 SPRAYS IN EACH NOSTRIL ONCE DAILY Start Date: 09/24/16 Status: OrderedHome Blood Pressure monitor Home Blood Pressure monitor, See Instructions, Instructions: Monitor BP at home, Supply, # 1 EA, 0 Refill(s), Type: Maintenance Start Date: 07/24/14 Status: OrderedLantus Solostar Pen 100 units/mL subcutaneous solution ( 9 unit(s) ), subcutaneous, hs, # 15 mL, 3 Refill(s), Type: Maintenance, Pharmacy: [id number], 9 unit(s) subcutaneous hs Start [...] unknown unit, 0 Refill(s), Type: Maintenance, Pharmacy: [facility] Start Date: 11/03/16 Status: Orderedpravastatin 10 [...] Type: Maintenance Start Date: 01/28/16 Status: Ordered Immunizations Given and Recorded Vaccine Date Status [...] Procedures Procedure Date Related Diagnosis Body Site Biopsy of vulva 09/14/16 BSO - Bilateral salpingo-oophorectomy 09/14/16 Colporrhaphy 09/14/16 Vaginal hysterectomy 09/14/16 Colonoscopy1 06/24/16 Colonoscopy2 12/28/12 HPV - Human [...] yrs. (Due fall 2012). Has done in [place].5Diverticulosis, 6mm sessile serrated adenoma ascending colon 6Excellent and stable. OK to repeat 5-10 yrs. Social History Social History Type Response Smoking Status Never smoker
--- OUTSIDE RECORDS SUMMARY | 2021-12-09 11:01 | XMS_ITS | Summary of Care ---
:1935 Author Organization [facility] s Address [address] [address]- Care Team Providers Name Role Phone Panchito Varela MD Primary Care Physician Encounter 06/10/16 - 06/12/16 [facility] [address] [place] [address]- Discharge Diagnosis: Type 2 diabetes mellitus with hemoglobin A1c goal of less than 7.0% Discharge Diagnosis: Dyslipidemia, goal LDL below 100 Discharge Diagnosis: HTN (hypertension) Discharge Diagnosis: Chronic kidney disease (CKD), stage III (moderate) Attending Physician: Isak Rae MD Vital Signs Most recent to oldest [Reference Range]: 1 Temperature Tympanic [97.9-100.6 DegF] 97 DegF *LOW* (06/10/16 7:56 AM) Blood Pressure [90-140/60-90 mmHg] 110/68 mmHg (06/10/16 7:56 AM) Mean Arterial Pressure 82 mmHg (06/10/16 7:56 AM) Peripheral Pulse Rate [60-100 bpm] 72 bpm (06/10/16 7:56 AM) Allergies Verified? Yes (06/10/16 7:56 AM) Medication History Verified? Yes (06/10/16 7:56 AM) Problem List Condition Effective Dates Status Health Status Informant Chronic rhinitis(Confirmed) Active Constipation(Confirmed) Active Cystocele(Confirmed) Active [...] Frequent PVCs(Confirmed) Active Vitamin D deficiency(Confirmed) Active [id number] colonoscopy q 3 yrs. Allergies, Adverse Reactions, [...] TEST FOUR TIMES A DAY OR DIRECTED [phone], # 100 unknown unit, Pharmacy: [facility] Start Date: 02/15/12 Status: OrderedBD ULTRA ULTRA=FINE 111 MINI PEN NEEDLES BD ULTRA ULTRA=FINE 111 MINI PEN NEEDLES, See Instructions, Instructions: INJECT DIRECTED, Supply, # 100 EA, 6 Refill(s), Type: Maintenance Start Date: 02/04/16 Status: Orderedbumetanide 1 mg oral tablet See [...] FREE METER, # 1 unknown unit, Pharmacy: [facility], USE DIRECTED FREE METER Start Date: 05/07/15 Status: OrderedContour Next Strips and lancets Contour Next Strips and lancets, See Instructions, Instructions: test 4 x day, Supply, # 120 EA, 11 Refill(s), Type: Maintenance, Pharmacy: [facility], test 4 x day Start Date: 03/16/16 [...] 15 mL, 3 Refill(s), Type: Maintenance, Pharmacy: [id number], 9 unit(s) subcutaneous hs Start Date: 02/13/16 Status: Orderedlisinopril 40 mg oral tablet 1 tab(s) ( 40 mg ), po, daily, # 90 tab(s), 1 Refill(s), Type: Maintenance, Pharmacy: [facility] Start Date: 01/23/16 Status: OrderedmetFORMIN 500 [...] 2 box(es), 3 Refill(s), Type: Maintenance, Pharmacy: [id number], 12 unit(s) subcutaneous tidac Start [...] pap screening.3Diverticulosis, 6mm sessile serrated adenoma ascending [id number] 3 yrs. (Due fall 2012). Has done in [place].5Excellent and stable. OK to repeat 5-10 yrs. Social History Social History Type Response Smoking Status Never smoker Assessment and Plan Extracted from: Title: CKD3 Author: Isak Rae MD Date: 06/10/16
--- OUTSIDE RECORDS SUMMARY | 2021-12-09 11:01 | XMS_ITS | Summary of Care ---
:1935 Author Organization [facility] s Address [address] [address]- Care Team Providers Name Role Phone Panchito Varela MD Primary Care Physician Encounter 08/13/16 - 08/15/[address] [address]- Attending Physician: Panchito Varela MD Vital Signs [...] Frequent PVCs(Confirmed) Active Vitamin D deficiency(Confirmed) Active [id number] colonoscopy q 3 yrs. Allergies, Adverse Reactions, [...] TEST FOUR TIMES A DAY OR DIRECTED [phone], # 100 unknown unit, Pharmacy: [email or web address] Start Date: 02/15/12 Status: OrderedBD Ultra Fine III Mini Pen Needlels BD Ultra Fine III Mini Pen Needlels, See Instructions, Instructions: use as directed, Supply, # 100 EA, 3 Refill(s), Type: Maintenance, Pharmacy: [email or web address], use as directed Start Date: 07/24/16 Status: [...] 90 cap(s), 3 Refill(s), Type: Maintenance, Pharmacy: [facility],1 cap(s) po daily Start Date: 07/23/16 Status: OrderedCayenne pepper drops Cayenne pepper drops, See Instructions, Instructions: 9 gtts daily, Supply, 0 Refill(s), Type: Maintenance Start Date: 01/28/16 Status: OrderedCoenzyme Q10 PO, bid, 0 Refill(s), Type: Maintenance Start Date: 03/07/09 Status: OrderedCONTOUR NEXT EZ BGM MG BEAD See Instructions, Instructions: USE DIRECTED FREE METER, # 1 unknown unit, Pharmacy: [facility], USE DIRECTED FREE METER Start Date: 05/07/15 Status: OrderedContour Next Strips and lancets Contour Next Strips and lancets, See Instructions, Instructions: test 4 x day, Supply, # 120 EA, 11 Refill(s), Type: Maintenance, Pharmacy: [email or web address], test 4 x day Start Date: [...] # 1.5 tab(s), 0 Refill(s), Type: Maintenance, Pharmacy:[email or web address], take half tab now for vaginal symp... Start Date: 08/05/16 Status: Orderedfluconazole 150 mg oral tablet 1 tab(s) ( 150 mg ), PO, Once, # 1 tab(s), 0 Refill(s), Type: Soft Stop, Pharmacy: [email or web address], 1 tab(s) po once Start Date: 08/05/16 Status: OrderedHome Blood Pressure monitor Home Blood Pressure monitor, See Instructions, Instructions: Monitor BP at home, Supply, # 1 EA, 0 Refill(s), Type: Maintenance Start Date: 07/24/14 Status: OrderedLantus Solostar Pen 100 units/mL subcutaneous solution ( 9 unit(s) ), subcutaneous, hs, # 15 mL, 3 Refill(s), Type: Maintenance, Pharmacy: [id number], 9 unit(s) subcutaneous hs Start Date: 02/13/16 Status: Orderedlisinopril 40 mg oral tablet 1 tab(s) ( 40 mg ), po, daily, # 90 tab(s), 1 Refill(s), Type: Maintenance, Pharmacy: [email or web address] Start Date: 01/23/16 Status: OrderedmetFORMIN 500 [...] 15 mL, 1 Refill(s), Type: Maintenance, Pharmacy: [email or web address] Start Date: 07/24/16 Status: Orderednystatin 100,000 units/g topical cream 1 ada, TOP, TID, Instructions: to replace fluconazole apply to external vaginal area, # 30 gm, 0 Refill(s), Type: Maintenance, Pharmacy: [facility], 1 ada top tid,x14 day(s),Instr:to replace fluconazole; [...] pap screening.4Diverticulosis, 6mm sessile serrated adenoma ascending [id number] 3 yrs. (Due fall 2012). Has done in [place].6 Excellent and stable. OK to repeat 5-10 yrs. Social History Social History Type Response Smoking Status Never smoker Assessment and Plan No data available for this section
--- OUTSIDE RECORDS SUMMARY | 2021-12-09 11:01 | XMS_ITS | Summary of Care ---
:1935 Author Organization [facility] s Address [address] [address]- Care Team Providers Name Role Phone Panchito Varela MD Primary Care Physician Encounter 05/19/16 - 05/21/16 [facility] [address] [place] [address]- Discharge Diagnosis: Early satiety Discharge Diagnosis: Dyslipidemia, goal LDL below 100 Discharge Diagnosis: Chronic kidney disease (CKD), stage III (moderate) Discharge Diagnosis: LUQ pain Discharge Diagnosis: Dyspepsia Discharge Diagnosis: Type 2 diabetes mellitus with hemoglobin A1c goal of less than 7.0% Discharge Diagnosis: HTN (hypertension) Attending Physician: Isak Rae MD Vital Signs Most recent to oldest [Reference Range]: 1 Weight Measured 207.4 lb (05/19/16 9:42 AM) Temperature Tympanic [97.9-100.6 DegF] 97.3 DegF *LOW* (05/19/16 9:42 AM) Blood Pressure [90-140/60-90 mmHg] 112/60 mmHg (05/19/16 9:42 AM) Mean Arterial Pressure 77 mmHg (05/19/16 9:42 AM) Peripheral Pulse Rate [60-100 bpm] 80 bpm (05/19/16 9:42 AM) Allergies Verified? Yes (05/19/16 9:42 AM) Medication History Verified? Yes (05/19/16 9:42 AM) Medical History Verified? Yes (05/19/16 9:42 AM) Problem List Condition Effective Dates Status [...] Frequent PVCs(Confirmed) Active Vitamin D deficiency(Confirmed) Active [id number] colonoscopy q 3 yrs. Allergies, Adverse Reactions, [...] TEST FOUR TIMES A DAY OR DIRECTED [phone], # 100 unknown unit, Pharmacy: [facility] Start Date: 02/15/12 Status: OrderedBD ULTRA ULTRA=FINE [...] FREE METER, # 1 unknown unit, Pharmacy: [facility], USE DIRECTED FREE METER Start Date: 05/07/15 Status: OrderedContour Next Strips and lancets Contour Next Strips and lancets, See Instructions, Instructions: test 4 x day, Supply, # 120 EA, 11 Refill(s), Type: Maintenance, Pharmacy: [facility], test 4 x day Start Date: 03/16/16 [...] 15 mL, 3 Refill(s), Type: Maintenance, Pharmacy: [id number], 9 unit(s) subcutaneous hs Start Date: 02/13/16 Status: Orderedlisinopril 40 mg oral tablet 1 tab(s) ( 40 mg ), po, daily, # 90 tab(s), 1 Refill(s), Type: Maintenance, Pharmacy: [facility] Start Date: 01/23/16 Status: OrderedmetFORMIN 500 [...] 2 box(es), 3 Refill(s), Type: Maintenance, [facility]acy: [id number], 12 unit(s) subcutaneous tidac Start Date: 02/13/16 Status: Orderedomeprazole 20 mg oral delayed release capsule 1 cap(s) ( 20 mg ), PO, Daily, Instructions: Take 30 minutes prior to evening meal, # 30 cap(s), 2 Refill(s), Type: Maintenance, Pharmacy: [facility], 1 cap(s) po daily,Instr:Take 30 minutes prior toevening meal Start Date: 05/19/16 Status: Orderedpravastatin 10 mg oral tablet 1 tab(s) ( 10 mg ), po, hs, Instructions: MWF, # 90 tab(s), 3 Refill(s), Type: Maintenance Start Date: 01/28/16 Status: OrderedPreserVision AREDS 2 1 cap(s), po, bid, 0 Refill(s), Type: Maintenance Start Date: 10/08/14 Status: OrderedraNITIdine 150 mg oral tablet 1 tab(s) ( 150 mg ), po, bid, # 60 tab(s), 0 Refill(s), Type: Maintenance, Pharmacy: [facility], in place of omeprazole, 1 tab(s) po bid Start Date: 05/22/16 Status: Orderedspironolactone 25 mg oral tablet 1 tab(s) ( 25 mg ), po, daily, # 90 tab(s), 3 Refill(s), Type: Maintenance, 1 tab(s) po daily Start Date: 01/28/16 Status: OrderedVibr-Gest Vibr-Gest, See [...] pap screening.3Diverticulosis, 6mm sessile serrated adenoma ascending [id number] 3 yrs. (Due fall 2012). Has done in [place].5Excellent and stable. OK to repeat 5-10 yrs. Social History Social History Type Response Smoking Status Never smoker Assessment and Plan Extracted from: Title: LUQ pain Author: Isak Rae MD Date: 05/19/16
--- OUTSIDE RECORDS SUMMARY | 2021-12-09 11:01 | XMS_ITS | Summary of Care ---
:1935 Author Organization [facility] s Address [facility] s [address] [address]- Care Team Providers Name Role Phone Panchito Varela MD Primary Care Physician Encounter 12/04/14 - 12/06/[address] [address]- Discharge Diagnosis: Statin intolerance Discharge Diagnosis: Controlled [...] SVT (supraventricular Active tachycardia)(Confirmed) Frequent PVCs(Confirmed) Active [id number] colonoscopy q 3 yrs. Allergies, Adverse Reactions, [...] MG INJECTABLE See Instructions, Instructions: INJECT DIRECTED [id number], # 100 unknown unit, 12 Refill(s), [facility], INJECT DIRECTED [id number] Special Instructions: INJECT DIRECTED [id number] Start Date: 10/22/14 Status: OrderedBD ULTRA-FINE III MINI PEN NEEDLES MG INJECTABLE See Instructions, Instructions: INJECT DIRECTED [id number], # 100 unknown unit, 5 Refill(s), Pharmacy: [facility], INJECT DIRECTED [id number] Special Instructions: INJECT DIRECTED [id number] Start Date: 09/26/13 Status: Orderedbumetanide 1 mg [...] pap screening.3Diverticulosis, 6mm sessile serrated adenoma ascending urbqq9Vuatby 3 yrs. (Due fall 2012). Has done in [place].5Excellent and stable. OK to repeat 5-10 yrs. Social History Social History Type Response Smoking Status Never smoker Assessment and Plan Extracted from: Title: DM Author: Panchito Varela MD Date: 5 Impression and Plan Diagnosis Dyslipidemia, goal LDL below 100 (ICD10- CM E78.5). Controlled type 2 DM with microalbuminur ia or microproteinuria (OIV06-PZ E11.9). HTN (hypertension) (IYY71-SR I10). Osteoarthritis of Left Knee (GZV90-HD M1 7.9). Statin intolerance (QAN69-BJ Z88.9). 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 Course: Good response to treatment. Orders [...]
--- OUTSIDE RECORDS SUMMARY | 2021-12-09 11:01 | XMS_ITS | Summary of Care ---
:1935 Author Organization [facility] s Address [facility] s - [address] [address]- Care Team Providers Name Role Phone Panchito Varela MD Primary Care Physician Encounter 11/12/15 - 11/14/15 [facility] [address] [place] [address]- Attending Physician: Panchito Varela MD Vital Signs [...] Frequent PVCs(Confirmed) Active Vitamin D deficiency(Confirmed) Active 9xflx7obnm6Bbmsz colonoscopy q 3 yrs. Allergies, Adverse Reactions, [...] TEST FOUR TIMES A DAY OR DIRECTED [phone], # 100 unknown unit, [facility] [...] 5 Refill(s), [facility]: [facility], INJECT DIRECTED [id number] Start Date: 09/26/13 Status: Orderedbumetanide 1 mg [...] unit, 3 Refill(s), Type: Soft Stop, Pharmacy: [facility], TAKE ONE CAPSULE BY MOUTH ONCE DAILY -DOSE INCREASE 09/04/2014 Start Date: 11/04/15 Status: OrderedCoenzyme Q10 PO, Daily, 0 Start Date: 03/07/09 Status: OrderedCONTOUR NEXT EZ BGM MG BEAD See Instructions, Instructions: USE DIRECTED FREE METER, # 1 unknown unit, Pharmacy: [facility], USE DIRECTED FREE METER Start Date: 05/07/15 [...] unknown unit, 1 Refill(s),Type: Soft Stop, Pharmacy: [facility], TAKE ONE TABLET BY MOUTH ONCE [...] 2 box(es), 1 Refill(s), Type: Maintenance, Pharmacy: [facility], TEST 4 X Day [...] pap screening.3Diverticulosis, 6mm sessile serrated adenoma ascending epmku0Bcjnag 3 yrs. (Due fall 2012). Has done in [place].5Excellent and stable. OK to repeat 5-10 yrs. Social History Social History Type Response Smoking Status Never smoker Assessment and Plan No data available for this section
--- OUTSIDE RECORDS SUMMARY | 2021-12-09 11:01 | XMS_ITS | Summary of Care ---
:1935 Author Organization [facility] s Address [address] [address]- Care Team Providers Name Role Phone Panchito Varela MD Primary Care Physician Encounter 01/24/15 - 01/26/15 [facility] [address] [place] [address]- Discharge Diagnosis: Myofacial muscle pain Attending Physician: Panchito Varela MD Vital Signs Most recent to oldest [Reference Range]: 1 Blood Pressure [90-140/60-90 mmHg] 136/71 mmHg (01/24/15 9:43 AM) Mean Arterial Pressure 93 mmHg (01/24/15 9:43 AM) Peripheral Pulse Rate [60-100 bpm] 72 bpm (01/24/15 9:43 AM) Allergies Verified? Yes (01/24/15 9:43 AM) Medication History Verified? Yes (01/24/15 9:43 AM) Problem List Condition Effective Dates Status [...] SVT (supraventricular Active tachycardia)(Confirmed) Frequent PVCs(Confirmed) Active 2uxje6puay9Cnodn colonoscopy q 3 yrs. Allergies, Adverse Reactions, Alerts Substance Reaction Severity Status flaygl Hives Active sulfa drug Hives Active Medications aspirin 81 mg oral tablet 3 tab(s) ( 243 mg ), po, daily, 0 Refill(s), Type: Maintenance Start Date: 10/08/14 Status: OrderedBD ULTRA FINE 33 G LANCETS MG APPLY See Instructions, Instructions: TEST FOUR TIMES A DAY OR DIRECTED [phone], # 100 unknown unit, Pharmacy: [facility] Start Date: 02/15/12 Status: OrderedBD ULTRA ULTRA=FINE 111 MINI PEN NEEDLES BD ULTRA ULTRA=FINE 111 MINI PEN NEEDLES, See Instructions, Instructions: INJECT DIRECTED, Supply, # 100 EA, 6 Refill(s), Type: Maintenance Start Date: 01/21/15 Status: OrderedBD ULTRA-FINE III MINI PEN NEEDLES MG INJECTABLE See Instructions, Instructions: INJECT DIRECTED [id number], # 100 unknown unit, 5 Refill(s), Pharmacy: [facility], INJECT DIRECTED [id number] Start Date: 09/26/13 Status: Orderedbumetanide 1 mg oral tablet 1 tab(s) ( 1 mg ), po, daily, # 90 tab(s), 1 Refill(s), TAKE ONE TABLET BY MOUTH ONCE DAILY Start Date: 01/21/15 Status: OrderedCalcium with Vitamin D and K [...] Instructions: TEST 4 X Day, Supply, # 100 EA, 6 Refill(s), Type: Maintenance Start Date: 01/21/15 Status: OrderedNOVA MAX STRIPS MG APPLY See Instructions, Instructions: TEST FOUR TIMES A DAY OR DIRECTED, # 100 unknown unit, 11 Refill(s), Pharmacy: [facility], TEST FOUR TIMES A DAY OR DIRECTED [...] pap screening.3Diverticulosis, 6mm sessile serrated adenoma ascending [id number] 3 yrs. (Due fall 2012). Has done in [place].5Excellent and stable. OK to repeat 5-10 yrs. Social History Social History Type Response Smoking Status Never smoker Assessment and Plan No data available for this section
--- OUTSIDE RECORDS SUMMARY | 2021-12-09 11:01 | XMS_ITS | Summary of Care ---
:1935 Author Organization [facility] s Address [facility] - [address] [address] [place] [address]- Care Team Providers Name Role Phone Panchito Varela MD Primary Care Physician Encounter 11/27/14 - 11/29/14 [facility] [address] [place] [address]- Attending Physician: Panchito Varela MD Vital Signs [...] SVT (supraventricular Active tachycardia)(Confirmed) Frequent PVCs(Confirmed) Active 6kxcc1Jolyr colonoscopy q 3 yrs. Allergies, Adverse Reactions, Alerts Substance Reaction Severity Status flaygl Hives Active sulfa drug Hives Active Medications aspirin 81 mg oral tablet 3 tab(s) ( 243 mg ), po, daily, 0 Refill(s), Type: Maintenance Start Date: 10/08/14 Status: OrderedBD ULTRA FINE 33 G LANCETS MG APPLY See Instructions, Instructions: TEST FOUR TIMES A DAY OR DIRECTED [phone], # 100 unknown unit, [facility]acy[facility] Instructions: TEST FOUR TIMES A DAY OR DIRECTED [id number] Start Date: 02/15/12 Status: OrderedBD ULTRA-FINE III MINI PEN NEEDLES MG INJECTABLE See Instructions, Instructions: INJECT DIRECTED [id number], # 100 unknown unit, 12 Refill(s), [facility], INJECT DIRECTED [id number] Special Instructions: INJECT DIRECTED [id number] Start Date: 10/22/14 Status: OrderedBD ULTRA-FINE III MINI PEN NEEDLES MG INJECTABLE See Instructions, Instructions: INJECT DIRECTED [id number], # 100 unknown unit, 5 Refill(s), Pharmacy: [facility] INJECT DIRECTED [id number] Special Instructions: INJECT DIRECTED [id number] Start Date: 09/26/13 Status: Orderedbumetanide 1 mg oral tablet See Instructions, Instructions: TAKE ONE TABLET BY MOUTH ONCE DAILY, # 90 unknown unit, 3 Refill(s),Pharmacy: [facility], TAKE ONE TABLET BY MOUTH ONCE DAILY Special Instructions: TAKE ONE TABLET BY MOUTH ONCE DAILY Start Date: 02/19/14 Status: OrderedCalcium with Vitamin D and K oral tablet 1 tab(s), po, bid, 0 Refill(s), Type: Maintenance Start Date: 11/30/11 Status: OrderedCoenzyme Q10 PO, Daily, 0 Start Date: 03/07/09 Status: OrderedDilt-XR 240 mg/24 hours oral capsule, extended release 1 cap(s) ( 240 mg ), po, daily, 0 Refill(s), Type: Maintenance Start Date: 08/23/14 Status: OrderedFish Oil oral capsule 3-4x/wk, 0 [...] 90 tab(s), 1 Refill(s), Type: Maintenance, Pharmacy: [facility], 1 tab(s) po daily Start Date: 07/22/14 Status: Orderedmetformin 500 mg oral tablet 2 tab(s) ( 1,000 mg ), PO, BID, # 360 tab(s), 1 Refill(s), Type: Maintenance, [facility]acy[facility], 2 tab(s) po bid Start Date: 07/22/14 Status: OrderedNOVA MAX STRIPS MG APPLY See Instructions, Instructions: TEST FOUR TIMES A DAY OR DIRECTED, # 100 unknown unit, 11 Refill(s), Pharmacy: [facility], TEST FOUR TIMES A DAY OR DIRECTED Special Instructions: TEST FOUR TIMES A DAY OR DIRECTED Start Date: 02/19/14 Status: OrderedNovoLog Mix 70/30 FlexPen subcutaneous suspension See Instructions, Instructions: as directed, # 10 mL, 2 Refill(s), Type: Maintenance, Pharmacy: [facility], as directed Special Instructions: as directed Start Date: 06/19/14 Status: Orderedpravastatin 10 mg oral tablet 1 tab(s) ( 10 mg ), po, mwf, # 39 tab(s), 1 Refill(s), Type: Maintenance, Pharmacy: [facility], 1 tab(s) po mwf Start Date: 07/22/14 [...] pap screening.3Diverticulosis, 6mm sessile serrated adenoma ascending cvcxj1Rfozlc 3 yrs. (Due fall 2012). Has done in [place].5Excellent and stable. OK to repeat 5-10 yrs. Social History Social History Type Response Tobacco Never Smoking Status Never smoker Assessment and Plan No data available for this section
--- OUTSIDE RECORDS SUMMARY | 2021-12-09 11:01 | XMS_ITS | Summary of Care ---
:1935 Author Organization [facility] s Address [address] [address]- Care Team Providers Name Role Phone Panchito Varela MD Primary Care Physician Encounter 11/09/14 - 11/11/14 [facility] [address] [place] [address]- Discharge Diagnosis: Vaginal dryness Discharge Diagnosis: Uterine prolapse Attending Physician: Alba Dubois MD Vital Signs Most recent to oldest [Reference Range]: 1 Height 70.5 in (11/09/14 1:11 PM) Weight 200.4 lb (11/09/14 1:11 PM) Body Mass Index 28.34 kg/m2 (11/09/14 1:11 PM) BSA 2.12 m2 (11/09/14 1:11 PM) Temperature Tympanic [97.9-100.6 DegF] 97.8 DegF *LOW* (11/09/14 1:11 PM) Blood Pressure [90-140/60-90 mmHg] 126/74 mmHg (11/09/14 1:11 PM) Mean Arterial Pressure 91 mmHg (11/09/14 1:11 PM) Peripheral Pulse Rate [60-100 bpm] 78 bpm (11/09/14 1:11 PM) Allergies Verified? Yes (11/09/14 1:11 PM) Medication History Verified? Yes (11/09/14 1:11 PM) Medical History Verified? No (11/09/14 1:11 PM) Problem List Condition Effective Dates Status [...] SVT (supraventricular Active tachycardia)(Confirmed) Frequent PVCs(Confirmed) Active [id number] colonoscopy q 3 yrs. Allergies, Adverse Reactions, [...] DIRECTED [id number], # 100 unknown unit, Pharmacy: [facility] Special Instructions: TEST FOUR TIMES A DAY OR DIRECTED [id number] Start Date: 02/15/12 Status: OrderedBD ULTRA-FINE III MINI PEN NEEDLES MG INJECTABLE See Instructions, Instructions: INJECT DIRECTED [id number], # 100 unknown unit, 12 Refill(s), [facility], INJECT DIRECTED [id number] Special Instructions: INJECT DIRECTED [id number] Start Date: 10/22/14 Status: OrderedBD ULTRA-FINE III MINI PEN NEEDLES MG INJECTABLE See Instructions, Instructions: INJECT DIRECTED [id number], # 100 unknown unit, 5 Refill(s), [facility]acy: [facility], INJECT DIRECTED [id number] Special Instructions: INJECT DIRECTED [id number] Start Date: 09/26/13 Status: Orderedbumetanide 1 mg oral tablet See Instructions, Instructions: TAKE ONE TABLET BY MOUTH ONCE DAILY, # 90 unknown unit, 3 Refill(s),Pharmacy: [facility], TAKE ONE TABLET BY MOUTH ONCE [...] # 100 unknown unit, 11 Refill(s), Pharmacy: [facility], TEST FOUR TIMES A DAY OR DIRECTED Special Instructions: TEST FOUR TIMES A DAY OR DIRECTED Start Date: 02/19/14 Status: OrderedNovoLog Mix 70/30 FlexPen subcutaneous suspension See Instructions, Instructions: as directed, # 10 mL, 2 Refill(s), Type: Maintenance, Pharmacy: [facility], as directed Special Instructions: as directed [...] pap screening.3Diverticulosis, 6mm sessile serrated adenoma ascending [id number] 3 yrs. (Due fall 2012). Has done in [place].5Excellent and stable. OK to repeat 5-10 yrs. Social History Social History Type Response Tobacco Never Smoking Status Never smoker Assessment and Plan Extracted from: Title: Uterine prolapse Author: Alba Dubois MD Date: Impression and Plan Diagnosis Uterine prolapse (ICD9 618.2). Vaginal dryness (ICD9 625.8). Course: Progressing as expected. Plan: Discussed diagnosis at length. Romy ssured about the wet prep. I think her discomfort is actually due to the cervix being exposed. Will use a barrier ointment like Aquaphor to the area to maintain m oisture. OK to proceed with PT, but enco uraged her to follow up with Energy Efficiency Specialist in the spring. .
--- OUTSIDE RECORDS SUMMARY | 2021-12-09 11:01 | XMS_ITS | Summary of Care ---
:1935 Author Organization [facility] s Address [address] [address]- Care Team Providers Name Role Phone Panchito Varela MD Primary Care Physician Encounter 06/05/16 - 06/07/[address] [address]- Discharge Diagnosis: Statin intolerance Discharge Diagnosis: Dyslipidemia, goal LDL below 100 Discharge Diagnosis: Diabetes mellitus type II Discharge Diagnosis: HTN (hypertension) Attending Physician: Panchito Varela MD Vital Signs Most recent to oldest [Reference Range]: 1 Height Measured 70.5 in (06/05/16 8:42 AM) Weight Measured 204 lb (06/05/16 8:42 AM) Body Mass Index 28.85 kg/m2 (06/05/16 8:42 AM) BSA 2.14 m2 (06/05/16 8:42 AM) Blood Pressure [90-140/60-90 mmHg] 124/70 mmHg (06/05/16 8:42 AM) Mean Arterial Pressure 88 mmHg (06/05/16 8:42 AM) Peripheral Pulse Rate [60-100 bpm] 76 bpm (06/05/16 8:42 AM) Allergies Verified? Yes (06/05/16 8:42 AM) Medication History Verified? Yes (06/05/16 8:42 AM) Problem List Condition Effective Dates Status [...] Frequent PVCs(Confirmed) Active Vitamin D deficiency(Confirmed) Active [id number] colonoscopy q 3 yrs. Allergies, Adverse Reactions, [...] TEST FOUR TIMES A DAY OR DIRECTED [id number], # 100 unknown unit, Pharmacy: [facility] Start Date: 02/15/12 Status: OrderedBD ULTRA [...] 120 EA, 11 Refill(s), Type: Maintenance, Pharmacy: [facility], test 4 x day Start Date: 03/16/16 [...] 15 mL, 3 Refill(s), Type: Maintenance, Pharmacy: [id number], 9 unit(s) subcutaneous hs Start Date: 02/13/16 Status: Orderedlisinopril 40 mg oral tablet 1 tab(s) ( 40 mg ), po, daily, # 90 tab(s), 1 Refill(s), Type: Maintenance, Pharmacy: [facility] Start Date: 01/23/16 Status: OrderedmetFORMIN 500 [...] 2 box(es), 3 Refill(s), Type: Maintenance, Pharmacy: [id number], 12 unit(s) subcutaneous tidac Start Date: 02/13/16 Status: Orderedomeprazole 20 mg oral delayed release capsule 1 cap(s) ( 20 mg ), PO, Daily, Instructions: Take 30 minutes prior to evening meal, # 30 cap(s), 2 Refill(s), Type: Maintenance, [facility]acy[facility], 1 cap(s) po daily,Instr:Take 30 minutes [...] Refill(s), Type: Maintenance Start Date: 06/05/16 Status: OrderedraNITIdine 150 mg oral tablet 1 tab(s) ( 150 mg ), po, bid, # 60 tab(s), 0 Refill(s), Type: Maintenance, Pharmacy: [facility], in place of omeprazole, 1 tab(s) po bid Start Date: 05/22/16 Status: Orderedspironolactone 25 mg oral tablet See [...] pap screening.3Diverticulosis, 6mm sessile serrated adenoma ascending [id number] 3 yrs. (Due fall 2012). Has done in [place].5Excellent and stable. OK to repeat 5-10 yrs. Social History Social History Type Response Smoking Status Never smoker Assessment and Plan Extracted from: Title: Medical F/U Author: Panchito Varela MD Date: 06/05/16
--- OUTSIDE RECORDS SUMMARY | 2021-12-09 11:01 | XMS_ITS | Summary of Care ---
:[address] [facility] s Address [address] [address]- Care Team Providers Name Role Phone Panchito Varela MD Primary Care Physician Encounter 11/09/14 - 11/11/14 [facility] [address] [place] [address]- Discharge Diagnosis: Vaginal dryness Discharge Diagnosis: Uterine [...] SVT (supraventricular Active tachycardia)(Confirmed) Frequent PVCs(Confirmed) Active 6uoey9Myuld colonoscopy q 3 yrs. Allergies, Adverse Reactions, [...] DIRECTED [id number], # 100 unknown unit, Pharmacy: [facility] Special Instructions: TEST FOUR TIMES A DAY OR DIRECTED [id number] Start Date: 02/15/12 Status: OrderedBD ULTRA-FINE III MINI PEN NEEDLES MG INJECTABLE See Instructions, Instructions: INJECT DIRECTED [id number], # 100 unknown unit, 12 Refill(s), [facility]: [facility], INJECT DIRECTED [id number] Special Instructions: INJECT DIRECTED [id number] Start Date: 10/22/14 Status: OrderedBD ULTRA-FINE III MINI PEN NEEDLES MG INJECTABLE See Instructions, Instructions: INJECT DIRECTED [id number], # 100 unknown unit, 5 Refill(s), [facility]: [facility], INJECT DIRECTED [id number] Special Instructions: INJECT DIRECTED [id number] Start Date: 09/26/13 Status: Orderedbumetanide 1 mg oral tablet See Instructions, Instructions: TAKE ONE TABLET BY MOUTH ONCE DAILY, # 90 unknown unit, 3 Refill(s),Pharmacy: [facility], TAKE ONE TABLET BY MOUTH ONCE [...] # 100 unknown unit, 11 Refill(s), Pharmacy: [facility], TEST FOUR TIMES A DAY OR DIRECTED Special Instructions: TEST FOUR TIMES A DAY OR DIRECTED Start Date: 02/19/14 Status: OrderedNovoLog Mix 70/30 FlexPen subcutaneous suspension See Instructions, Instructions: as directed, # 10 mL, 2 Refill(s), Type: Maintenance, Pharmacy: [facility], as directed Special Instructions: as directed [...] pap screening.3Diverticulosis, 6mm sessile serrated adenoma ascending [id number] 3 yrs. (Due fall 2012). Has done in [place].5Excellent and stable. OK to repeat 5-10 yrs. [...] enco uraged her to follow up with [facility]ated Process Operator in the spring. .
--- OUTSIDE RECORDS SUMMARY | 2021-12-09 11:01 | XMS_ITS | Summary of Care ---
:1935 Author Organization [facility] s Address [facility] s [address] [address]- Care Team Providers Name Role Phone Panchito Varela MD Primary Care Physician Encounter 07/04/15 - 07/06/15 [facility] [address] [place] [address]- Attending Physician: Panchito Varela MD Vital Signs Most recent to oldest [Reference Range]: 1 Blood Pressure [90-140/60-90 mmHg] 145/73 mmHg *HI* (07/04/15 9:43 AM) Mean Arterial Pressure 97 mmHg (07/04/15 9:43 AM) Peripheral Pulse Rate [60-100 bpm] 72 bpm (07/04/15 9:43 AM) Allergies Verified? Yes (07/04/15 9:43 AM) Medication History Verified? Yes (07/04/15 9:43 AM) Problem List Condition Effective Dates [...] SVT (supraventricular Active tachycardia)(Confirmed) Frequent PVCs(Confirmed) Active [id number] colonoscopy q 3 yrs. Allergies, Adverse Reactions, Alerts Substance Reaction Severity Status flaygl Hives Active sulfa drug Hives Active Medications aspirin 81 mg oral tablet 3 tab(s) ( 243 mg ), po, daily, 0 Refill(s), Type: Maintenance Start Date: 10/08/14 Status: OrderedBD ULTRA FINE 33 G LANCETS MG APPLY See Instructions, Instructions: TEST FOUR TIMES A DAY OR DIRECTED [id number], # 100 unknown unit, [facility] [...] # 200 EA, 5 Refill(s), [facility] INJECT DIRECTED [id number] Start Date: 09/26/13 Status: Orderedbumetanide 1 mg [...] FREE METER, # 1 unknown unit, [facility]: [facility], USE DIRECTED FREE METER Start Date: 05/07/15 [...] Refill(s), Type: Maintenance Start Date: 07/24/14 Status: OrderedRonny Solostar Pen 100 units/mL subcutaneous solution ( 12 unit(s) ), subcutaneous, hs, # 10 mL, 11 Refill(s), Type: Maintenance, Pharmacy: [facility], 12 unit(s) subcutaneous hs Start Date: [...] 2 box(es), 1 Refill(s), Type: Maintenance, Pharmacy: [facility] #[id number], TEST 4 X [...] pap screening.3Diverticulosis, 6mm sessile serrated adenoma ascending [id number] 3 yrs. (Due fall 2012). Has done in [place].5Excellent and stable. OK to repeat 5-10 yrs. Social History Social History Type Response Smoking Status Never smoker Assessment and Plan Extracted from: Title: Insulin change Author: Panchito Varela MD Date: Impression and Plan Diagnosis Diabetes mellitus type II ([id number] E11. 9). Course: Good response to treatment. Orders Orders (Selected) Outpatient Orders Ordered Advanced Practice Provider Consult (Request): Ref erred to: Bindu Reddy, Reason: DM, Diabetes mellitus type II Return to Clinic (Request): RFV: Catarina solano, Return in 6 months, Instructions: after lab Order Return to Clinic: RFV: Lab standing orde r: BMP, MATIAS, lipid q12mo Hgb A q3-6mo Prescriptions Prescribed Lantus Solostar Pen 100 units/mL subcuta neous solution: ( 12 unit(s) ), subcutaneous, hs, # 10 mL, 11 Refill(s), Type: Maintenance, Pharmacy: [facility], 12 unit(s) subcutaneous hs NovoLOG PenFill 100 units/mL subcutaneou s solution: ( 9 unit(s) ), subcutaneous, tidac, # 15 mL, 11 Refill(s), Type: Maintenance, Pharmacy: [facility], 9 unit(s) subcutaneous tidac Discontinued NovoLog Mix 70/30 FlexPen subcutaneous s uspension: See Instructions, Instructions: 14-16 UNITS TWICE DAILY subcutaneous bidac, # 15 mL, 2 Refill(s), Type: Maintenance, as directed. Patient Instructions: Counseled: Patient , Diet, Activity, Verbalized understanding, weight loss. Referrals to Other ProvidersDM, referred to: Bindu Reddy Referred by: Nichole MASTERS, Panchito
--- OUTSIDE RECORDS SUMMARY | 2021-12-09 11:01 | XMS_ITS | Summary of Care ---
:1935 Author Organization [facility] s Address [address] [address]- Care Team Providers Name Role Phone Panchito Varela MD Primary Care Physician Encounter 01/24/15 - 01/26/15 [facility] [address] [place] [address]- Discharge Diagnosis: Myofacial muscle pain Attending Physician: [...] SVT (supraventricular Active tachycardia)(Confirmed) Frequent PVCs(Confirmed) Active [id number] colonoscopy q 3 yrs. Allergies, Adverse Reactions, Alerts Substance Reaction Severity Status flaygl Hives Active sulfa drug Hives Active Medications aspirin 81 mg oral tablet 3 tab(s) ( 243 mg ), po, daily, 0 Refill(s), Type: Maintenance Start Date: 10/08/14 Status: OrderedBD ULTRA FINE 33 G LANCETS MG APPLY See Instructions, Instructions: TEST FOUR TIMES A DAY OR DIRECTED [id number], # 100 unknown unit, Pharmacy: [facility] Start Date: 02/15/12 Status: OrderedBD ULTRA ULTRA=FINE 111 MINI PEN NEEDLES BD ULTRA ULTRA=FINE 111 MINI PEN NEEDLES, See Instructions, Instructions: INJECT DIRECTED, Supply, # 100 EA, 6 Refill(s), Type: Maintenance Start Date: 01/21/15 Status: OrderedBD ULTRA-FINE III MINI PEN NEEDLES MG INJECTABLE See Instructions, Instructions: INJECT DIRECTED [id number], # 100 unknown unit, 5 Refill(s), Pharmacy: [facility], INJECT DIRECTED [id number] Start Date: 09/26/13 Status: Orderedbumetanide 1 mg [...] # 100 unknown unit, 11 Refill(s), Pharmacy: [facility], TEST FOUR TIMES A DAY OR DIRECTED [...] pap screening.3Diverticulosis, 6mm sessile serrated adenoma ascending [id number] 3 yrs. (Due fall 2012). Has done in [place].5Excellent and stable. OK to repeat 5-10 yrs. Social History Social History Type Response Smoking Status Never smoker Assessment and Plan No data available for this section
--- OUTSIDE RECORDS SUMMARY | 2021-12-09 11:01 | XMS_ITS | Summary of Care ---
:1935 Author Organization [facility] s Address [facility] - [address] [address]- Care Team Providers Name Role Phone Panchito Varela MD Primary Care Physician Encounter 06/06/15 - 06/08/15 [facility] [address] [place] [address]- Attending Physician: Panchito Varela MD Vital Signs [...] SVT (supraventricular Active tachycardia)(Confirmed) Frequent PVCs(Confirmed) Active [id number] colonoscopy q 3 yrs. Allergies, Adverse Reactions, Alerts Substance Reaction Severity Status flaygl Hives Active sulfa drug Hives Active Medications aspirin 81 mg oral tablet 3 tab(s) ( 243 mg ), po, daily, 0 Refill(s), Type: Maintenance Start Date: 10/08/14 Status: OrderedBD ULTRA FINE 33 G LANCETS MG APPLY See Instructions, Instructions: TEST FOUR TIMES A DAY OR DIRECTED [id number], # 100 unknown unit, Pharmacy: [facility] Start Date: 02/15/12 Status: OrderedBD ULTRA ULTRA=FINE 111 MINI PEN NEEDLES BD ULTRA ULTRA=FINE 111 MINI PEN NEEDLES, See Instructions, Instructions: INJECT DIRECTED, Supply, # 100 EA, 6 Refill(s), Type: Maintenance Start Date: 01/21/15 Status: OrderedBD ULTRA-FINE III MINI PEN NEEDLES MG INJECTABLE See Instructions, Instructions: INJECT DIRECTED [id number], # 100 unknown unit, 5 Refill(s), Pharmacy: [facility], INJECT DIRECTED [id number] Start Date: 09/26/13 Status: Orderedbumetanide 1 mg [...] FREE METER, # 1 unknown unit, Pharmacy: [facility], USE DIRECTED FREE METER Start Date: 05/07/15 [...] 2 box(es), 1 Refill(s), Type: Maintenance, Pharmacy: [facility] #[id number], TEST 4 X Day Start Date: 02/05/15 Status: OrderedNOVA MAX STRIPS MG APPLY See Instructions, Instructions: TEST FOUR TIMES A DAY OR DIRECTED, # 100 unknown unit, 11 Refill(s), Pharmacy: [facility], TEST FOUR TIMES A DAY OR [...] pap screening.3Diverticulosis, 6mm sessile serrated adenoma ascending niqwe1Gfpyua 3 yrs. (Due fall 2012). Has done in [place].5Excellent and stable. OK to repeat 5-10 yrs. Social History Social History Type Response Smoking Status Never smoker Assessment and Plan No data available for this section
--- OUTSIDE RECORDS SUMMARY | 2021-12-09 11:02 | XMS_ITS | Summary of Care ---
:1935 Author Organization [facility] s Address [facility] [place] [address] [place] [address]- Care Team Providers Name Role Phone Panchito Varela MD Primary Care Physician Encounter 11/27/14 - 11/29/14 [email or web address] [address] [place] [address]- Attending Physician: Panchito Varela MD Vital Signs [...] SVT (supraventricular Active tachycardia)(Confirmed) Frequent PVCs(Confirmed) Active 4ipvm4Pexvp colonoscopy q 3 yrs. Allergies, Adverse Reactions, Alerts Substance Reaction Severity Status flaygl Hives Active sulfa drug Hives Active Medications aspirin 81 mg oral tablet 3 tab(s) ( 243 mg ), po, daily, 0 Refill(s), Type: Maintenance Start Date: 10/08/14 Status: OrderedBD ULTRA FINE 33 G LANCETS MG APPLY See Instructions, Instructions: TEST FOUR TIMES A DAY OR DIRECTED [id number], # 100 unknown unit, [facility]: TEST FOUR TIMES A DAY OR DIRECTED [id number] Start Date: 02/15/12 Status: OrderedBD ULTRA-FINE III MINI PEN NEEDLES MG INJECTABLE See Instructions, Instructions: INJECT DIRECTED [id number], # 100 unknown unit, 12 Refill(s), [facility], INJECT DIRECTED [id number] Special Instructions: INJECT DIRECTED [id number] Start Date: 10/22/14 Status: OrderedBD ULTRA-FINE III MINI PEN NEEDLES MG INJECTABLE See Instructions, Instructions: INJECT DIRECTED [id number], # 100 unknown unit, 5 Refill(s), [facility] INJECT DIRECTED [id number] Special Instructions: INJECT DIRECTED [id number] Start Date: 09/26/13 Status: Orderedbumetanide 1 mg [...] # 100 unknown unit, 11 Refill(s), Pharmacy: [facility], TEST FOUR TIMES A DAY OR DIRECTED Special Instructions: TEST FOUR TIMES A DAY OR DIRECTED Start Date: 02/19/14 Status: OrderedNovoLog Mix 70/30 FlexPen subcutaneous suspension See Instructions, Instructions: as directed, # 10 mL, 2 Refill(s), Type: Maintenance, Pharmacy: [facility], as directed Special Instructions: as directed Start Date: 06/19/14 Status: Orderedpravastatin 10 mg oral tablet 1 tab(s) ( 10 mg ), po, mwf, # 39 tab(s), 1 Refill(s), Type: Maintenance, Pharmacy: [facility], 1 tab(s) po mwf Start Date: 07/22/14 [...] pap screening.3Diverticulosis, 6mm sessile serrated adenoma ascending [id number] 3 yrs. (Due fall 2012). Has done in [place].5Excellent and stable. OK to repeat 5-10 yrs. Social History Social History Type Response Tobacco Never Smoking Status Never smoker Assessment and Plan No data available for this section
--- OUTSIDE RECORDS SUMMARY | 2021-12-09 11:02 | XMS_ITS | Summary of Care ---
:1935 Author Organization [facility] s Address [address] [address]- Care Team Providers Name Role Phone Panchito Varela MD Primary Care Physician Encounter 10/29/15 - 10/31/15 [facility] [address] [place] [address]- Discharge Diagnosis: Acute URI Discharge Diagnosis: Acute URI Attending Physician: Panchito Varela MD Vital Signs Most recent to oldest [Reference Range]: 1 Height Measured 70.5 in (10/29/15 10:00 AM) Weight Measured 202 lb (10/29/15 10:00 AM) Body Mass Index 28.57 kg/m2 (10/29/15 10:00 AM) BSA 2.13 m2 (10/29/15 10:00 AM) Temperature Tympanic [97.9-100.6 DegF] 97.5 DegF *LOW* (10/29/15 10:00 AM) Blood Pressure [90-140/60-90 mmHg] 146/78 mmHg *HI* (10/29/15 10:00 AM) Mean Arterial Pressure 101 mmHg (10/29/15 10:00 AM) Allergies Verified? Yes (10/29/15 10:00 AM) Medication History Verified? Yes (10/29/15 10:00 AM) Problem List Condition Effective Dates Status Health Status Informant Adenomatous Polyp of Colon(Confirmed) 2004 Active Benign tumor(Confirmed)1 Active Chronic rhinitis(Confirmed) Active Controlled type 2 DM with proteinuria Active or microalbuminuria(Confirmed) Constipation(Confirmed) Active Cystocele(Confirmed) Active B12 deficiency(Confirmed) Active Diabetes mellitus type II(Confirmed) Active Myofacial muscle pain(Confirmed)2 01/24/15 Active Generalized anxiety Active disorder(Confirmed) Dyslipidemia, goal LDL below Active 100(Confirmed) HTN (hypertension)(Confirmed) Active Impingement syndrome, Active shoulder(Confirmed)3 Uterine Prolapse(Confirmed) Active Irritable bladder(Confirmed) Active Menopause(Confirmed) 1985 Active Muscle atrophy(Confirmed) Active Nocturnal leg cramps(Confirmed) Active Osteoarthritis of Left Knee(Confirmed) Active PERSONAL HISTORY OF COLONIC Active POLYPS(Confirmed)4 Colon polyp(Confirmed) Active Statin intolerance(Confirmed) Active SVT (supraventricular Active tachycardia)(Confirmed) Frequent PVCs(Confirmed) Active Vitamin D deficiency(Confirmed) Active 1Of head.[id number] colonoscopy q 3 yrs. Allergies, Adverse Reactions, [...] TEST FOUR TIMES A DAY OR DIRECTED [id number], # 100 unknown unit, [facility] [...] 5 Refill(s), [facility], INJECT DIRECTED [id number] Start Date: 09/26/13 Status: Orderedbumetanide 1 mg oral tablet See Instructions, Instructions: TAKE ONE TABLET BY MOUTH ONCE DAILY, # 90 unknown unit, Pharmacy: [facility], TAKE ONE TABLET BY MOUTH ONCE [...] unknown unit, 1 Refill(s),Type: Soft Stop, Pharmacy: [facility], TAKE ONE TABLET BY MOUTH ONCE [...] 2 box(es), 1 Refill(s), Type: Maintenance, Pharmacy: [facility] #[facility], TEST 4 X Day Start [...] 15 mL, 11 Refill(s), Type: Maintenance, Pharmacy: [facility], 9 unit(s) subcutaneous tidac Start Date: 07/04/15 Status: Orderedpravastatin 10 mg oral tablet See Instructions, Instructions: TAKE ONE TABLET BY MOUTH ONCE ON MONDAYS, WEDNESDAYS, AND FRIDAYS, #39 unknown unit, 1 Refill(s), Type: Soft Stop, Pharmacy: [facility], TAKE ONE TABLET BY MOUTH ONCEON MONDAYS, [...] pap screening.3Diverticulosis, 6mm sessile serrated adenoma ascending [id number] 3 yrs. (Due fall 2012). Has done in [place].5Excellent and stable. OK to repeat 5-10 yrs. Social History Social History Type Response Smoking Status Never smoker Assessment and Plan Extracted from: Title: JDL URI Author: Panchito Varela MD Date: 10/29/15 Impression and Plan Diagnosis Acute URI ([id number] J06.9). Course: Progressing as expected. Orders Reviewed symptomatic measures. Return if you have fever, shortness of breath, or are not improving..
--- OUTSIDE RECORDS SUMMARY | 2021-12-09 11:02 | XMS_ITS | Summary of Care ---
:1935 Author Organization [facility] s Address [address] [address]- Care Team Providers Name Role Phone Isak Rae MD Primary Care Physician Encounter 12/08/16 - 12/08/[address] [address]- Attending Physician: Isak Rae MD Referring Physician: Isak Rae MD Problem List Condition Effective Dates Status Health [...] syndrome, Active shoulder(Confirmed)3 Uterine Prolapse(Confirmed) Active Menopause(Confirmed) 1984 Active Muscle atrophy(Confirmed) Active Osteoarthritis of left knee(Confirmed) Active Renal failure(Confirmed) Active SVT (supraventricular Active tachycardia)(Confirmed) Type 2 diabetes mellitus with Active hemoglobin A1c goal of less than 7.0%(Confirmed) 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 Vitamin D deficiency(Confirmed) Active [id number] colonoscopy q 3 yrs.3both Allergies, Adverse Reactions, [...] TEST FOUR TIMES A DAY OR DIRECTED [id number], # 100 unknown unit, Pharmacy: [facility] Start Date: 02/15/12 Status: OrderedBD Ultra Fine III Mini Pen Needlels BD Ultra Fine III Mini Pen Needlels, See Instructions, Instructions: use as directed, Supply, # 100 EA, 3 Refill(s), Type: Maintenance, Pharmacy: [facility], use as directed Start Date: 07/24/16 Status: [...] FREE METER, # 1 unknown unit, Pharmacy: [facility], USE DIRECTED FREE METER Start Date: 05/07/15 Status: OrderedContour Next Strips and lancets Contour Next Strips and lancets, See Instructions, Instructions: test 4 x day, Supply, # 120 EA, 11 Refill(s), Type: Maintenance, Pharmacy: [facility], test 4 x day Start Date: 03/16/16 [...] 15 mL, 3 Refill(s), Type: Maintenance, Pharmacy: [id number], 9 unit(s) subcutaneous hs Start [...] unknown unit, 0 Refill(s), Type: Maintenance, Pharmacy: [facility] Start Date: 11/03/16 Status: Orderedpravastatin 10 [...] Dual energy X-ray photon absorptiometry6 06/22/08 Colonoscopy 2005 Left Tibia/Fibula FX 01/2002 Laparoscopic cholecystectomy 05/27/00 Adenoidectomy 194 Tonsillectomy 1941 1Indication: Adrenomatous polyps Sedation: Versed 1 mg. Fentanyl 50 mcg Findings: Tubular adenoma, diverticulosis Rec: Repeat in 5 years.2Serrated polyp. Repeat 5 years.3Low risk for cervical cancer, but prefers annual pap screening.4Repeat 3 yrs. (Due fall 2012). Has done in [place].5Diverticulosis, 6mm sessile serrated adenoma ascending colon 6Excellent and stable. OK to repeat 5-10 yrs. Social History Social History Type Response Smoking Status Never smoker
--- OUTSIDE RECORDS SUMMARY | 2021-12-09 11:02 | XMS_ITS | Summary of Care ---
:1935 Author Organization [facility] s Address [address] [address] [place] [address]- Care Team Providers Name Role Phone Panchito Varela MD Primary Care Physician Encounter(s) 11/09/14 [facility] [address] [place] [address]- Discharge Diagnosis: Vaginal dryness Discharge Diagnosis: Uterine prolapse Attending Physician: Alba Dubois MD 10/30/14 - 11/01/14 [facility] [address] [place] [address] [id number]- Attending Physician: Panchito Varela MD 10/08/14 - 10/10/14 [facility] [address] [place] [address]- Discharge Diagnosis: Pelvic relaxation due to vaginal prolapse Discharge Diagnosis: Myofacial muscle pain Attending Physician: Panchito Varela MD 07/24/14 - 07/26/14 [facility] [address] [place] [address]- Discharge Diagnosis: Statin intolerance Discharge Diagnosis: Dyslipidemia, goal LDL below 100 Discharge Diagnosis: Hypertension Discharge Diagnosis: Dyslipidemia, goal LDL below 100 Discharge Diagnosis: Hypertension Discharge Diagnosis: Frequent PVCs Discharge Diagnosis: Statin intolerance Discharge Diagnosis: PAF (paroxysmal atrial fibrillation) Discharge Diagnosis: Diabetes mellitus type II Discharge Diagnosis: Diabetes mellitus type II Discharge Diagnosis: PAF (paroxysmal atrial fibrillation) Attending Physician: Panchito Varela MD 07/23/14 - 07/25/14 [facility] [address] [place] [address]- Discharge Diagnosis: Annual exam Attending Physician: Alba Dubois MD Vital Signs Most recent to oldest 1 2 3 [Reference Range]: Height 70.5 in 70.5 in 70.5 in (11/09/14 1:11 PM) (07/24/14 1:47 PM) (07/23/14 10:05 AM) Weight 200.4 lb 199 lb 199.8 lb (11/09/14 1:11 PM) (07/24/14 1:47 PM) (07/23/14 10:05 AM) Body Mass Index 28.34 kg/m2 28.15 kg/m2 28.26 kg/m2 (11/09/14 1:11 PM) (07/24/14 1:47 PM) (07/23/14 10:05 AM) BSA 2.12 m2 2.12 m2 2.12 m2 (11/09/14 1:11 PM) (07/24/14 1:47 PM) (07/23/14 10:05 AM) Temperature Tympanic 97.8 DegF 97.7 DegF 97.6 DegF [97.9-100.6 DegF] *LOW* *LOW* *LOW* (11/09/14 1:11 PM) (07/23/14 10:05 AM) (10/24/13 9:16 AM) Temperature Temporal 96.6 DegF 97.1 DegF [97.3-100.0 DegF] *LOW* *LOW* (02/25/12 3:29 PM) (07/23/11 2:40 PM) Blood Pressure [90-140/60-90 126/74 mmHg 133/76 mmHg 137 /70 mmHg mmHg] (11/09/14 1:11 PM) (10/08/14 4:31 PM) (07/24/14 1:47 PM) Mean Arterial Pressure 91 mmHg 95 mmHg 92 mmHg (11/09/14 1:11 PM) (10/08/14 4:31 PM) (07/24/14 1:47 PM) Peripheral Pulse Rate [60-100 78 bpm 74 bpm 76 bpm bpm] (11/09/14 1:11 PM) (10/08/14 4:31 PM) (07/24/14 1:47 PM) Oxygen Saturation [94-100 %] 97 % 98 % 99 % (07/24/14 1:47 PM) (07/23/11 2:40 PM) (11/23/11 12: 22 PM) Allergies Verified? Yes Yes Yes (11/09/14 1:11 PM) (10/08/14 4:31 PM) (07/23/14 10:0 5 AM) Medication History Verified? Yes Yes Yes (11/09/14 1:11 PM) (10/08/14 4:31 PM) (07/23/14 10:0 5 AM) Medical History Verified? No Yes Yes (11/09/14 1:11 PM) (07/23/14 10:05 AM) (08/02/13 10: 10 AM) Problem List Condition Effective Dates Status [...] SVT (supraventricular Active tachycardia)(Confirmed) Frequent PVCs(Confirmed) Active [id number] colonoscopy q 3 yrs. Allergies, Adverse Reactions, Alerts Substance Reaction Severity Status flaygl Hives Active sulfa drug Hives Active Medications aspirin 81 mg oral tablet 3 tab(s) ( 243 mg ), po, daily, 0 Refill(s), Type: Maintenance Start Date: 10/08/14 Status: OrderedBD ULTRA FINE 33 G LANCETS MG APPLY See Instructions, Instructions: TEST FOUR TIMES A DAY OR DIRECTED [id number], # 100 unknown unit, Pharmacy: [facility] Special Instructions: TEST FOUR TIMES A DAY OR DIRECTED [id number] Start Date: 02/15/12 Status: OrderedBD ULTRA-FINE III MINI PEN NEEDLES MG INJECTABLE See Instructions, Instructions: INJECT DIRECTED [id number], # 100 unknown unit, 12 Refill(s), Pharmacy: [facility], INJECT DIRECTED [id number] Special Instructions: INJECT DIRECTED [id number] Start Date: 10/22/14 Status: OrderedBD ULTRA-FINE III MINI PEN NEEDLES MG INJECTABLE See Instructions, Instructions: INJECT DIRECTED [id number], # 100 unknown unit, 5 Refill(s), Pharmacy: [facility], INJECT DIRECTED [id number] Special Instructions: INJECT DIRECTED [id number] Start Date: 09/26/13 Status: Orderedbumetanide 1 mg [...] 100 unknown unit, 11 Refill(s), Pharmacy: [facility], TEST FOUR TIMES A DAY OR DIRECTED Special Instructions: TEST FOUR TIMES A DAY OR DIRECTED Start Date: 02/19/14 Status: OrderedNovoLog Mix 70/30 FlexPen subcutaneous suspension See Instructions, Instructions: as directed, # 10 mL, 2 Refill(s), Type: Maintenance, Pharmacy: [facility], as directed Special Instructions: as directed Start Date: 06/19/14 Status: Orderedpravastatin 10 mg oral tablet 1 tab(s) ( 10 mg ), po, mwf, # 39 tab(s), 1 Refill(s), Type: Maintenance, Pharmacy: [facility], 1 tab(s) po mwf Start Date: 07/22/14 Status: OrderedPreserVision AREDS 2 1 cap(s), po, daily, 0 Refill(s), Type: Maintenance Start Date: 10/08/14 Status: Ordered Results Chemistry Most recent to oldest 1 2 3 [Reference Range]: Glucose Level POC 98.00 mg/dL (11/29/09 7:32 AM) Hgb A1c POC 5.7 % (11/29/09 7:34 AM) ALT/SGPT POC 14.00 unit/L (11/29/09 7:32 AM) Cholesterol POC 163.00 mg/dL (11/29/09 7:32 AM) HDL POC 50.0 mg/dL (11/29/09 7:32 AM) LDL POC 74.00 mg/dL (11/29/09 7:32 AM) Triglyceride POC 195.00 mg/dL (11/29/09 7:32 AM) Sodium Level [135-146 140 mmol/L 38 142 mmol/L 39 141 mmol/L 40 mmol/L] (06/14/14 8:43 AM) (12/22/13 8:42 AM) (06/06/13 10 :05 AM) Sodium Level TR 143 mEq/L 143 mEq/L 146 mEq/L (06/04/09 10:58 AM) (10/25/08 10:48 AM) (05/31/08 10: 43 AM) Potassium Level [3.5-5.3 3.7 mmol/L 35 4.0 mmol/L 36 3.8 mmo l/L 37 mmol/L] (06/14/14 8:43 AM) (12/22/13 8:42 AM) (06/06/13 10 :05 AM) Potassium Level TR 3.9 mEq/L 4 mEq/L 4.2 mEq/L (06/04/09 10:58 AM) (10/25/08 10:48 AM) (05/31/08 10: 43 AM) Chloride Level [98-110 104 mmol/L 22 104 mmol/L 23 103 mmol/ L 24 mmol/L] (06/14/14 8:43 AM) (12/22/13 8:42 AM) (06/06/13 10 :05 AM) Chloride TR 106 mEq/L 106 mEq/L 107 mEq/L (06/04/09 10:58 AM) (10/25/08 10:48 AM) (05/31/08 10: 43 AM) CO2 Level [19-30 mmol/L] 24 mmol/L 79 27 mmol/L 80 28 mmol /L 81 (06/14/14 8:43 AM) (12/22/13 8:42 AM) (06/06/13 10 :05 AM) CO2 TR 26 mEq/L 25 mEq/L 27 mEq/L (06/04/09 10:58 AM) (10/25/08 10:48 AM) (05/31/08 10: 43 AM) AGAP [5-18] 15 (03/08/12 4:22 PM) Glucose Level [65-99 mg/dL] 105 mg/dL 26 110 mg/dL 27 105 mg/dL 28 *HI* *HI* *HI* (06/14/14 8:43 AM) (12/22/13 8:42 AM) (06/06/13 10 :05 AM) Glucose Level TR 95 mg/dL 97 mg/dL 91 mg/dL (06/04/09 10:58 AM) (10/25/08 10:48 AM) (05/31/08 10: 43 AM) BUN [7-25 mg/dL] 23 mg/dL 19 15 mg/dL 20 22 mg/dL 21 (06/14/14 8:43 AM) (12/22/13 8:42 AM) (06/06/13 10 :05 AM) Creatinine Level [0.60-0.93 1.19 mg/dL 1 0.93 mg/dL 2 1.14 mg/dL 3 mg/dL] *HI* (12/22/13 8:42 AM) *HI* (06/14/14 8:43 AM) (06/06/13 10:05 AM) Creatinine TR 0.85 mg/dL 0.93 mg/dL 0.95 mg/dL (06/04/09 10:58 AM) (10/25/08 10:48 AM) (05/31/08 10: 43 AM) BUN/Creat Ratio [6-22] 19 59 NOT APPLICABLE 60 19 61 (06/14/14 8:43 AM) (12/22/13 8:42 AM) (06/06/13 10 :05 AM) eGFR [> OR = 60 44 mL/min/1.73m2 56 60 mL/min/1.73m2 57 47 mL/mi n/1.73m2 58 mL/min/1.73m2] *LOW* (12/22/13 8:42 AM) *LOW* (06/14/14 8:43 AM) (06/06/13 10:05 AM) eGFR [> OR 51 mL/min/1.73m2 70 69 mL/min/1.73m2 71 54 mL/min/1.73m2 72 = 60 mL/min/1.73m2] *LOW* (12/22/13 8:42 AM) *LOW* (06/14/14 8:43 AM) (06/06/13 10:05 AM) eGFR Non- 60 73 [>60] *LOW* (03/08/12 4:22 PM) Calcium Level [8.6-10.4 9.6 mg/dL 43 9.4 mg/dL 44 10.1 mg/ dL 45 mg/dL] (06/14/14 8:43 AM) (12/22/13 8:42 AM) (06/06/13 10 :05 AM) Calcium TR 9.5 mEq/dL 9.4 mEq/dL 9.1 mEq/dL (06/04/09 10:58 AM) (10/25/08 10:48 AM) (05/31/08 10: 43 AM) Bilirubin Total [0.2-1.2 0.5 mg/dL 18 mg/dL] (08/02/12 4:27 PM) Alkaline Phosphatase [33-130 48 unit/L 17 unit/L] (08/02/12 4:27 PM) AST/SGOT [10-35 unit/L] 21 unit/L 49 (08/02/12 4:27 PM) ALT/SGPT [6-29 unit/L] 14 unit/L 46 14 unit/L 47 (08/14/13 9:09 AM) (08/02/12 4:27 PM) ALT/SGPT [6-40] 15 48 (05/14/12 8:17 AM) ALT TR 17 unit/L 17 unit/L 19 unit/L (06/04/09 10:58 AM) (10/25/08 10:48 AM) (05/31/08 10: 43 AM) Protein Total [6.1-8.1 6.5 gm/dL 41 gm/dL] (08/02/12 4:27 PM) Albumin Level [3.6-5.1 4.4 gm/dL 16 gm/dL] (08/02/12 4:27 PM) Globulin [1.9-3.7] 2.1 62 (08/02/12 4:27 PM) A/G Ratio [1.0-2.5] 2.1 63 (08/02/12 4:27 PM) Hgb A1c [<5.7] 6.1 32 6.2 33 5.7 34 *HI* *HI* *HI* (06/14/14 8:43 AM) (12/22/13 8:42 AM) (06/06/13 10 :05 AM) Hgb A1c TR 5.9 % 5.5 % 5.5 % (06/04/09 10:58 AM) (05/31/08 10:43 AM) (02/01/08 1 0:45 AM) Vitamin B12 Level [200-1100 1601 pg/mL 42 pg/mL] *HI* (07/24/10 2:49 PM) Vitamin D 25-OH [30-100 40 ng/mL 67 ng/mL] (02/13/13 9:07 AM) Vitamin D 25-OH, Total TR 22 ng/mL (06/29/07 11:09 AM) Vitamin D 25-OH, D2 [See 7 ng/mL 69 Note: ng/mL] (02/13/13 9:07 AM) Vitamin D 25-OH, D3 [See 33 ng/mL 68 Note: ng/mL] (02/13/13 9:07 AM) Total CK [29-143] 213 25 *HI* (07/24/10 2:49 PM) Cholesterol [125-200 mg/dL] 216 mg/dL 50 206 mg/dL 51 222 mg/dL 52 *HI* *HI* *HI* (06/14/14 8:43 AM) (12/22/13 8:42 AM) (08/14/13 9: 09 AM) Cholesterol TR 156 mg/dL 130 mg/dL 139 mg/dL (06/04/09 10:58 AM) (05/31/08 10:43 AM) (02/01/08 1 0:45 AM) Non-HDL Cholesterol 160 82 157 83 173 84 *HI* (12/22/13 8:42 AM) *HI* (06/14/14 8:43 AM) (08/14/13 9:09 AM) HDL [> OR = 46 mg/dL] 56 mg/dL 29 49 mg/dL 30 49 mg/dL 3 1 (06/14/14 8:43 AM) (12/22/13 8:42 AM) (08/14/13 9: 09 AM) HDL TR 64 mg/dL 59 mg/dL 62 mg/dL (06/04/09 10:58 AM) (05/31/08 10:43 AM) (02/01/08 1 0:45 AM) Cholesterol/HDL Ratio [< OR 3.9 4 4.2 5 4.5 6 = 5.0] (06/14/14 8:43 AM) (12/22/13 8:42 AM) (08/14/13 9: 09 AM) LDL [<130] 140 7 129 8 139 9 *HI* (12/22/13 8:42 AM) *HI* (06/14/14 8:43 AM) (08/14/13 9:09 AM) LDL TR 78 mg/dL 57 mg/dL 56 mg/dL (06/04/09 10:58 AM) (05/31/08 10:43 AM) (02/01/08 1 0:45 AM) Triglyceride [<150 mg/dL] 98 mg/dL 53 141 mg/dL 54 170 mg /dL 55 (06/14/14 8:43 AM) (12/22/13 8:42 AM) *HI* (08/14/13 9:09 AM ) Triglyceride TR 71 mg/dL 72 mg/dL 104 mg/dL (06/04/09 10:58 AM) (05/31/08 10:43 AM) (02/01/08 1 0:45 AM) T4 Free Index TR 1.0 ng/dL (05/31/08 10:43 AM) TSH [0.40-4.50 mIU/L] 1.64 mIU/L 10 2.87 mIU/L 11 1.48 mIU/L 12 (07/12/14 10:16 AM) (06/06/13 10:05 AM) (08/02/12 4 :27 PM) TSH TR 3.06 mIU/L (05/31/08 10:43 AM) U Creatinine [20-320 mg/dL] 105 mg/dL 13 75 mg/dL 14 268 mg/dL 15 (01/18/12 10:27 AM) (11/23/11 8:58 AM) (12/03/10 9:18 AM) U Microalbumin [See Note: 2.0 mg/dL 64 3.6 mg/dL 65 5.7 mg /dL 66 mg/dL] (12/22/13 8:42 AM) (01/24/13 8:23 AM) (01/18/12 1 0:27 AM) Ur Creatinine [20-320 mg/dL] 117 mg/dL 74 157 mg/dL 75 (12/22/13 8:42 AM) (01/24/13 8:23 AM) Ur Microalbumin/Creatinine 17 76 23 77 54 78 Ratio [<30] (12/22/13 8:42 AM) (01/24/13 8:23 AM) *HI* (01/18/12 10:27 AM) 1Result Comment: For patients >49 years of age, the reference limit for Creatinine is approximately 13% higher for people identified as -Citizen Of [place]. Lab test performed by: [facility] [address] [place] [address] Allan Salcedo M.D.2Result Comment: For patients >49 years of age, the reference limit for Creatinine is approximately 13% higher for people identified as -Citizen Of [place]. Lab test performed by: Lab Mnemonic[facility] [address] [place] [address] Allan Salcedo M.D.3Result Comment: For patients >49 years of age, the reference limit for Creatinine is approximately 13% higher for people identified as -Citizen Of [place]. Lab test performed by: Lab Mnemonic:[facility] [address] [place] [address] Allan Salcedo M.D.4Result Comment: Lab test performed by: Lab Mnemonic:[facility] [address] [place] [address] Allan Salcedo M.D. Unit of Measure: (calc)5Result Comment: Lab test performed by: Lab Mnemonic:[facility] [address] [place] [address] Allan Salcedo M.D. Unit of Measure: (calc)6Result Comment: Lab test performed by: Lab Mnemonic:[facility] [address] [place] [address] Allan Salcedo M.D. Unit of Measure: (calc)7Result Comment: Desirable range <100 mg/dL for patients with CHD or diabetes and <70 mg/dL for diabetic patients with known heart disease. Lab test performed by: Lab Mnemonic:[facility] [address] [place] [address] Allan Salcedo M.D. Unit of Measure: mg/dL (calc)8Result Comment: Desirable range <100 mg/dL for patients with CHD or diabetes and <70 mg/dL for diabetic patients with known heart disease. Lab test performed by: Lab Mnemonic:[facility] [address] [place] [address] Allan Salcedo M.D. Unit of Measure: mg/dL (calc)9Result Comment: Desirable range <100 mg/dL for patients with CHD or diabetes and <70 mg/dL for diabetic patients with known heart disease. Lab test performed by: Lab Mnemonic:[facility] [address] [place] [facility] [address] Allan Salcedo M.D. Unit of Measure: mg/dL (calc)10Result Comment: Lab test performed by: Lab Mnemonic: [facility] [address] [place] [address] Allan Salcedo M.D.11Result Comment: Lab test performed by: Lab Mnemonic: [facility] [address] [place] [address] Allan Salcedo M.D.12Result Comment: Lab test performed by: Lab Mnemonic: [facility] [address] [place] [address] Allan Salcedo M.D.13Result Comment: Lab test performed by: Lab Mnemonic: [facility] [address] [place] [address] Allan Salcedo M.D.14Result Comment: Lab test performed by: Lab Mnemonic: [facility] [address] [place] [address] Allan Salcedo M.D.15Result Comment: Lab test performed by: Lab Mnemonic: [facility] [address] [place] [address] Allan Salcedo M.D.16Result Comment: Lab test performed by: Lab Mnemonic: [facility] [address] [place] [address] Allan Salcedo M.D.17Result Comment: Lab test performed by: Lab Mnemonic: [facility] [address] [place] [address] Allan Salcedo M.D. Unit of Measure: [id number] Comment: Lab test performed by: Lab Mnemonic:[facility] [address] [place] [address] Allan Salcedo M.D.19Result Comment: Lab test performed by: Lab Mnemonic:[facility] [address] [place] [address] Allan Salcedo M.D.20Result Comment: Lab test performed by: Lab Mnemonic:[facility] [address] [place] [address] Allan Salcedo M.D.21Result Comment: Lab test performed by: Lab Mnemonic: [facility] [address] [place] [address] Allan Salcedo M.D.22Result Comment: Lab test performed by: Lab Mnemonic: [facility] [address] [place] [address] Allan Salcedo M.D.23Result Comment: Lab test performed by: Lab Mnemonic:[facility] [address] [place] [address] Allan Salcedo M.D.24Result Comment: Lab test performed by: Lab Mnemonic:[facility] [address] [place] [address] Allan Salcdeo M.D.25Result Comment: Lab test performed by: Lab Mnemonic: [facility] [address] [place] [address] Allan Salcedo M.D. Unit of Measure: [id number] Comment: Fasting reference interval Lab test performed by: Lab Mnemonic:[facility] [address] [place] [address] Allan Salcedo M.D.27Result Comment: Fasting reference interval Lab test performed by: Lab Mnemonic: [facility] [address] [place] [address] Allan Salcedo M.D.28Result Comment: Fasting reference interval Lab test performed by: Lab Mnemonic: [facility] [address] [place] [address] Allan Salcedo M.D.29Result Comment: Lab test performed by: Lab Mnemonic: [facility] [address] [place] [address] Allan Salcedo M.D.30Result Comment: Lab test performed by: Lab Mnemonic:[facility] [address] [facility] [address] Allan Salcedo M.D.31Result Comment: Lab test performed by: Lab Mnemonic:[facility] [address] [facility] [address] Allan Salcedo M.D.32Result Comment: According to ADA guidelines, hemoglobin A1c <7.0% represents optimal control in non- diabetic patients. Different metrics may apply to specific patient populations. Standards of Medical Care in Diabetes-2013. Diabetes Care. 2013;36:s11-s66 For the purpose of screening for the presence of diabetes <5.7% Consistent with the absence of diabetes 5.7-6.4% Consistent with increased risk for diabetes (prediabetes) >or=6.5% Consistent with diabetes This assay result is consistent with a higher risk of diabetes. Currently, no consensus exists for use of hemoglobin A1c for diagnosis of diabetes for children. Lab test performed by: Lab Mnemonic:[facility] [address] [place] [address] Allan Salcedo M.D. Unit of Measure: % of total [id number] Comment: According to ADA guidelines, hemoglobin A1c <7.0% represents optimal control in non- diabetic patients. Different metrics may apply to specific patient populations. Standards of Medical Care in Diabetes-2013. Diabetes Care. 2013;36:s11-s66 For the purpose of screening for the presence of diabetes <5.7% Consistent with the absence of diabetes 5.7-6.4% Consistent with increased risk for diabetes (prediabetes) >or=6.5% Consistent with diabetes This assay result is consistent with a higher risk of diabetes. Currently, no consensus exists for use of hemoglobin A1c for diagnosis of diabetes for children. Lab test performed by: Lab Mnemonic:[facility] [address] [facility] [address] Allan Salcedo M.D. Unit of Measure: % of total [id number] Comment: According to ADA guidelines, hemoglobin A1c <7.0% represents optimal control in non- diabetic patients. Different metrics may apply to specific patient populations. Standards of Medical Care in Diabetes-2013. Diabetes Care. 2013;36:s11-s66 For the purpose of screening for the presence of diabetes <5.7% Consistent with the absence of diabetes 5.7-6.4% Consistent with increased risk for diabetes (prediabetes) >or=6.5% Consistent with diabetes This assay result is consistent with an increased risk of diabetes. Currently, no consensus exists for use of hemoglobin A1c for diagnosis of diabetes for children. Lab test performed by: Lab Mnemonic:[facility] [address] [place] [address] Allan Salcedo M.D. Unit of Measure: % of total [id number] Comment: Lab test performed by: Lab Mnemonic:[facility] [address] [place] [address] Allan Salcedo M.D.36Result Comment: Lab test performed by: Lab Mnemonic:[facility] [address] [place] [address] Allan Salcedo M.D.37Result Comment: Lab test performed by: Lab Mnemonic:[facility] [address] [place] [address] Allan Salcedo M.D.38Result Comment: Lab test performed by: Lab Mnemonic:[facility] [address] [place] [address] Allan Salcedo M.D.39Result Comment: Lab test performed by: Lab Mnemonic:[facility] [address] [place] [address] Allan Salcedo M.D.40Result Comment: Lab test performed by: Lab Mnemonic:[facility] [address] [place] [address] Allan Salcedo M.D.41Result Comment: Lab test performed by: Lab Mnemonic:[facility] [address] [place] [address] Allan Salcedo M.D.42Result Comment: Lab test performed by: Lab Mnemonic: [facility] [address] [place] [address] Allan Salcedo M.D.43Result Comment: Lab test performed by: Lab Mnemonic:[facility] [address] [place] [address] Allan Salcedo M.D.44Result Comment: Lab test performed by: Lab Mnemonic: [facility] [address] [place] [address] Allan Salcedo M.D.45Result Comment: Lab test performed by: Lab Mnemonic: [facility] [address] [place] [address] Allan Salcedo M.D.46Result Comment: Lab test performed by: Lab Mnemonic: [facility] [address] [place] [address] Allan Salcedo M.D. Unit of Measure: U/[id number] Comment: Lab test performed by: Lab Mnemonic: [facility] [address] [place] [address] Allan Salcedo M.D. Unit of Measure: U/[id number] Comment: Lab test performed by: Lab Mnemonic: [facility] [address] [place] [address] Allan Salcedo M.D. Unit of Measure: U/U50Ojqkvh Comment: Lab test performed by: Lab Mnemonic: [facility] [address] [place] [address] Allan Salcedo M.D. Unit of Measure: U/[id number] Comment: Lab test performed by: Lab Mnemonic:[facility] [address] [place] [address] Allan Salcedo M.D.51Result Comment: Lab test performed by: Lab Mnemonic:[facility] [address] [place] [address] Allan Salcedo M.D.52Result Comment: Lab test performed by: Lab Mnemonic: [facility] [address] [place] [address] Allan Salcedo M.D.53Result Comment: Lab test performed by: Lab Mnemonic:[facility] [address] [place] [address] Allan Salcedo M.D.54Result Comment: Lab test performed by: Lab Mnemonic:[facility] [address] [place] [address] Allan Salcedo M.D.55Result Comment: Lab test performed by: Lab Mnemonic:[facility] [address] [place] [address] Allan Salcedo M.D.56Result Comment: Lab test performed by: Lab Mnemonic: [facility] [address] [place] [address] Allan Salcedo M.D.57Result Comment: Lab test performed by: Lab Mnemonic: [facility] [address] [place] [address] Allan Salcedo M.D.58Result Comment: Lab test performed by: Lab Mnemonic: [facility] [address] [place] [address] Allan Salcedo M.D.59Result Comment: Lab test performed by: Lab Mnemonic:[facility] [address] [place] [address] Allan Salcedo M.D. Unit of Measure: (calc)60Result Comment: Lab test performed by: Lab Mnemonic:[facility] [address] [place] [address] Allan Salcedo M.D. Unit of Measure: (calc)61Result Comment: Lab test performed by: Lab Mnemonic:[facility] [address] [place] [address] Allan Salcedo M.D. Unit of Measure: (calc)62Result Comment: Lab test performed by: Lab Mnemonic: [facility] [address] [place] [address] Allan Salcedo M.D. Unit of Measure: g/dL (calc)63Result Comment: Lab test performed by: Lab Mnemonic: [facility] [address] [place] [address] Allan Salcedo M.D. Unit of Measure: (calc)64Result Comment: Reference Range: Reference Range Not established Lab test performed by: Lab Mnemonic: [facility] [address] [place] [address] Allan Salcedo M.D.65Result Comment: Reference Range: Reference Range Not established Lab test performed by: Lab Mnemonic: [facility] [address] [place] [address] Allan Salcedo M.D.66Result Comment: Reference Range: Reference Range Not established Lab test performed by: Lab Mnemonic:[facility] [address] [place] [address] Allan Salcedo M.D.67Result Comment: 25-OHD3 indicates both endogenous production and supplementation. 25-OHD2 is an indicator of exogenous sources, such as diet or supplementation. Therapy is based on measurement of Total 25-OHD, with levels <20 ng/mL indicative of Vitamin D deficiency, while levels between 20 ng/mL and 30 ng/mL suggest insufficiency. Optimal levels are > or = 30 ng/mL. Lab test performed by: Lab Mnemonic:[email or web address] [facility] [address] [place] [address] Allan Salcedo M.D.68Result Comment: Reference Range: Reference Range Not established Lab test performed by: Lab Mnemonic:[id number] [facility] [address] [place] [address] Allan Salcedo M.D.69Result Comment: Reference Range: Reference Range Not established Lab test performed by: Lab Mnemonic:[id number] [facility] [address] [place] [address] Allan Salcedo M.D.70Result Comment: Lab test performed by: Lab Mnemonic: [facility] [address] [place] [address] Allan Salcedo M.D.71Result Comment: Lab test performed by: Lab Mnemonic: [facility] [address] [facility] [place] [address] Allan Salcedo M.D.72Result Comment: Lab test performed by: Lab Mnemonic: [facility] [address] [facility] [place] [address] Allan Salcedo M.D.73Result Comment: Unit of Measure: ml/min/1.21y166Xqynym Comment: Lab test performed by: Lab Mnemonic: [facility] [address] [facility] [place] [address] Allan Salcedo M.D.75Result Comment: Lab test performed by: Lab Mnemonic:[facility] [address] [facility] [place] [address] Allan Salcedo M.D.76Result Comment: The ADA defines abnormalities in albumin excretion as follows: Category Result (mcg/mg creatinine) Normal <30 Microalbuminuria 30-299 Clinical albuminuria > OR = 300 The ADA recommends that at least two of three specimens collected within a 3-6 month period be abnormal before considering a patient to be within a diagnostic category. Lab test performed by: Lab Mnemonic:[facility] [address] [facility] [place] [address] Allan Salcedo M.D. Unit of Measure: mcg/mg qioqw85Vakpbi Comment: The ADA defines abnormalities in albumin excretion as follows: Category Result (mcg/mg creatinine) Normal <30 Microalbuminuria 30-299 Clinical albuminuria > OR = 300 The ADA recommends that at least two of three specimens collected within a 3-6 month period be abnormal before considering a patient to be within a diagnostic category. Lab test performed by: Lab Mnemonic:[facility] [address] [place] [address] Allan Salcedo M.D. Unit of Measure: mcg/mg nhcnx75Yctqxa Comment: The ADA defines abnormalities in albumin excretion as follows: Category Result (mcg/mg creatinine) Normal <30 Microalbuminuria 30-299 Clinical albuminuria > OR = 300 The ADA recommends that at least two of three specimens collected within a 3-6 month period be abnormal before considering a patient to be within a diagnostic category. Lab test performed by: Lab Mnemonic: [facility] [address] [place] [address] Allan Salcedo M.D. Unit of Measure: mcg/mg eefgq18Jenufu Comment: Lab test performed by: Lab Mnemonic: [facility] [address] [place] [address] Allan Salcedo M.D.80Result Comment: Lab test performed by: Lab Mnemonic: [facility] [address] [facility] [place] [address] Allan Salcedo M.D.81Result Comment: Lab test performed by: Lab Mnemonic:[facility] [address] [place] [address] Allan Salcedo M.D.82Result Comment: Target for non-HDL cholesterol is 30 mg/dL higher than LDL cholesterol target. Lab test performed by: Lab Mnemonic:[facility] [address] [place] [address] Allan Salcedo M.D. Unit of Measure: mg/dL (calc)83Result Comment: Target for non-HDL cholesterol is 30 mg/dL higher than LDL cholesterol target. FASTING Lab test performed by: Lab Mnemonic:[facility] [address] [place] [address] Allan Salcedo M.D. Unit of Measure: mg/dL (calc)84Result Comment: Target for non-HDL cholesterol is 30 mg/dL higher than LDL cholesterol target. Lab test performed by: Lab Mnemonic:[facility] [address] [place] [address] Allan Salcedo M.D. Unit of Measure: mg/dL (calc)Hematology Most recent to oldest [Reference Range]: 1 2 3 WBC [3.8-10.8] 5.1 111 5.6 112 (07/12/14 10:16 AM) (08/02/12 4:27 PM) WBC [4.5-11.0] 8.0 113 (03/08/12 4:22 PM) RBC [3.80-5.10] 4.47 104 4.38 105 (07/12/14 10:16 AM) (08/02/12 4:27 PM) RBC [4.00-5.20] 4.59 106 (03/08/12 4:22 PM) Hgb [11.7-15.5 gm/dL] 13.3 gm/dL 88 13.5 gm/dL 89 (07/12/14 10:16 AM) (08/02/12 4:27 PM) Hgb [12.0-16.0 g/dL] 13.7 g/dL 90 (03/08/12 4:22 PM) Hct [35.0-45.0 %] 40.0 % 85 39.7 % 86 (07/12/14 10:16 AM) (08/02/12 4:27 PM) Hct [33.0-51.0 %] 40.8 % 87 (03/08/12 4:22 PM) MCV [80.0-100.0 fL] 89.6 fL 97 90.6 fL 98 (07/12/14 10:16 AM) (08/02/12 4:27 PM) MCV [80-100 fL] 89 fL 99 (03/08/12 4:22 PM) MCH [27.0-33.0 pg] 29.8 pg 91 30.8 pg 92 (07/12/14 10:16 AM) (08/02/12 4:27 PM) MCH [26.0-34.0 pg] 29.8 pg 93 (03/08/12 4:22 PM) MCHC [32.0-36.0 gm/dL] 33.3 gm/dL 94 34.0 gm/dL 95 (07/12/14 10:16 AM) (08/02/12 4:27 PM) MCHC [32.0-36.0 g/dL] 33.6 g/dL 96 (03/08/12 4:22 PM) RDW [11.0-15.0 %] 15.1 % 107 13.5 % 108 *HI* (08/02/12 4:27 PM) (07/12/14 10:16 AM) RDW [11.5-15.5 %] 12.7 % 109 (03/08/12 4:22 PM) Platelet [140-400] 222 101 243 102 (07/12/14 10:16 AM) (08/02/12 4:27 PM) Platelet [140-440] 320 103 (03/08/12 4:22 PM) MPV [6.5-11.0 fL] 10.1 fL 100 (03/08/12 4:22 PM) Sed Rate [< OR = 30] 2 110 (07/24/10 2:49 PM) Sed Rate TR 2 mm/hr (10/25/08 10:48 AM) 85Result Comment: Lab test performed by: Lab Mnemonic:[facility] [address] [place] [address] Allan Salcedo M.D.86Result Comment: Lab test performed by: Lab Mnemonic:[facility] [address] [place] [address] Allan Salcedo M.D.87Result Comment: Unit of Measure: %88Result Comment: Lab test performed by: Lab Mnemonic:[facility] [address] [place] [address] Allan Salcedo M.D.89Result Comment: Lab test performed by: Lab Mnemonic:[facility] [address] [place] [address] Allan Salcedo M.D.90Result Comment: Unit of Measure: g/sK85Cumgho Comment: Lab test performed by: Lab Mnemonic:[facility] [address] [place] [address] Allan Salcedo M.D.92Result Comment: Lab test performed by: Lab Mnemonic:[facility] [address] [place] [address] Allan Salcedo M.D.93Result Comment: Unit of Measure: qp87Xczdmh Comment: Lab test performed by: Lab Mnemonic:[facility] [address] [facility] [place] [address] Allan Salcedo M.D.95Result Comment: Lab test performed by: Lab Mnemonic:[facility] [address] [facility] [place] [address] Allan Salcdeo M.D.96Result Comment: Unit of Measure: g/tW74Hsozpv Comment: Lab test performed by: Lab Mnemonic:[facility] [address] [facility] [place] [address] Allan Salcedo M.D.98Result Comment: Lab test performed by: Lab Mnemonic:[facility] [address] [facility] [place] [address] Allan Salcedo M.D.99Result Comment: Unit of Measure: aZ256Msmjfg Comment: Unit of Measure: gY452Unqpsk Comment: Lab test performed by: Lab Mnemonic:[facility] [address] [facility] [place] [address] Allan Salcedo M.D. Unit of Measure: Thousand/cK299Qrjlai Comment: Lab test performed by: Lab Mnemonic:[facility] [address] [facility] [place] [address] Allan Salcedo M.D. Unit of Measure: Thousand/zN302Tfkiyy Comment: Unit of Measure: thou/cu mm104 Result Comment: Lab test performed by: Lab Mnemonic:[facility] [address] [facility] [place] [address] Allan Salcedo M.D. Unit of Measure: Million/xM985Fqobqf Comment: Lab test performed by: Lab Mnemonic:[facility] [address] [facility] [place] [address] Allan Salcedo M.D. Unit of Measure: Million/hO179Shcwai Comment: Unit of Measure: mil/cu mm107 Result Comment: Lab test performed by: Lab Mnemonic: [facility] [address] [facility] [address] Allan Salcedo M.D.108Result Comment: Lab test performed by: Lab Mnemonic: [facility] [address] [facility] [place] [address] Allan Salcedo M.D.109Result Comment: Unit of Measure: %110Result Comment: Lab test performed by: Lab Mnemonic: [facility] [address] [facility] [place] [address] Allan Salcedo M.D. Unit of Measure: mm/e059Szfqpg Comment: Lab test performed by: Lab Mnemonic: [facility] [address] [facility] [place] [address] Allan Salcedo M.D. Unit of Measure: Thousand/iQ864Cgeupt Comment: Lab test performed by: Lab Mnemonic:[facility] [address] [facility] [place] [address] Allan Salcedo M.D. Unit of Measure: Thousand/sT487Lkpzvf Comment: Unit of Measure: thou/cu mm Urinalysis Most recent to oldest [Reference Range]: 1 2 3 UA Color [(Yellow)] Yellow Yellow (03/21/12 10:09 AM) (03/08/12 4:22 PM) UA Clarity [(Clear)] Slightly Cloudy Cloudy (03/21/12 10:09 AM) (03/08/12 4:22 PM) UA pH [5.0-9.0] 7.0 6.0 (03/21/12 10:09 AM) (03/08/12 4:22 PM) UA Specific [place] [1.002-1.03] 1.015 1.020 (03/21/12 10:09 AM) (03/08/12 4:22 PM) UA Glucose [(Negative)] Negative 114 Negative 115 (03/21/12 10:09 AM) (03/08/12 4:22 PM) UA Bilirubin [(Negative)] Negative Negative (03/21/12 10:09 AM) (03/08/12 4:22 PM) UA Ketones [(Negative)] Negative Negative (03/21/12 10:09 AM) (03/08/12 4:22 PM) Urine Occult Blood [(Negative)] Negative Negative (03/21/12 10:09 AM) (03/08/12 4:22 PM) UA Protein [(Negative)] Trace Trace (03/21/12 10:09 AM) (03/08/12 4:22 PM) UA Nitrite [(Negative)] Negative Negative (03/21/12 10:09 AM) (03/08/12 4:22 PM) UA Leukocyte Esterase [(Negative)] Positive Positive (03/21/12 10:09 AM) (03/08/12 4:22 PM) UA Urobilinogen [(Normal)] Normal Normal (03/21/12 10:09 AM) (03/08/12 4:22 PM) UA WBC [(0-5)] 5-10 118 100-300 119 (03/21/12 10:09 AM) (03/08/12 4:22 PM) UA RBC [(0-2)] 0-2 116 None Seen 117 (03/21/12 10:09 AM) (03/08/12 4:22 PM) UA Bacteria [(None-Fe] Occasional Few (03/21/12 10:09 AM) (03/08/12 4:22 PM) UA Epithelial Cells [(None or F] Moderate Moderate (03/21/12 10:09 AM) (03/08/12 4:22 PM) UA Yeast [(None)] None Seen None Seen (03/21/12 10:09 AM) (03/08/12 4:22 PM) UA Cast [(0 or Hyal] None seen None seen (03/21/12 10:09 AM) (03/08/12 4:22 PM) UA Crystals [(None pres] None seen None seen (03/21/12 10:09 AM) (03/08/12 4:22 PM) UA Other Mucus Present Mucus Present (03/21/12 10:09 AM) (03/08/12 4:22 PM) 114Result Comment: Unit of Measure: mg/wQ058Bkmgfy Comment: Unit of Measure: mg/dE424Oyckov Comment: Unit of Measure: /IJV615Iwjuqa Comment: Unit of Measure: /ACH668Oswnwt Comment: Unit of Measure: /RTD388Zjvikh Comment: Unit of Measure: /HPFImmunology/Serology Most recent to oldest [Reference Range]: 1 2 3 Rheumatoid Factor TR Positive (10/25/08 10:48 AM) Microbiology Most recent to oldest [Reference Range]: 1 2 3 Culture Urine See comment 120 *ABN* (03/08/12 5:25 PM) Wet Prep Yeast None Seen (11/09/14 1:40 PM) Wet Prep Trichomonas None Seen (11/09/14 1:40 PM) Wet Prep Clue Cells None Seen (11/09/14 1:40 PM) 120Result Comment: CULTURE, URINE, ROUTINE MICRO NUMBER: [id number] TEST STATUS: FINAL SPECIMEN SOURCE: URINE SPECIMEN QUALITY: ADEQUATE RESULT: Greater than 100,000 CFU/mL of Lactobacillus species May represent colonizers from external and internal genitalia. No further testing (including susceptibility) will be performed. Lab test performed by: Lab Mnemonic: [facility] [address] [place] [address] Allan Salcedo M.D.Blood Bank Most recent to oldest [Reference Range]: 1 2 3 ABO/Rh O Rh Positive (03/08/12 4:22 PM) Antibody Screen [(Negative)] Negative (03/08/12 4:22 PM) BB Specimen Expiration Dt/Tm 03/12/2012 23:59 (03/08/12 4:22 PM) Immunizations Vaccine Date Refusal Reason influenza virus [...] pap screening.3Diverticulosis, 6mm sessile serrated adenoma ascending djfpb9Pvtdgy 3 yrs. (Due fall 2012). Has done in [place].5Excellent and stable. OK to repeat 5-10 yrs. [...] enco uraged her to follow up with [facility] in the spring. . Extracted from: Title: A-fib, HTN Author: Panchito Varela MD Date: 07/24/14 Impression and Plan Diagnosis PAF (paroxysmal atrial fibrillation) (IC D9 427.31). Hypertension (ICD9 401.9). 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 Course: Unchanged. Orders Orders (Selected) Outpatient Orders Ordered Return to Clinic (Request): RFV: HTN, Re turn in 4 weeks Prescriptions Prescribed Home Blood Pressure monitor: Home Blood Pressure monitor, See Instructions, Instructions: Monitor BP at home, Supply, # 1 EA, 0 Refill(s), Type: Maintenance metoprolol succinate 50 mg oral tablet, extended release: 1 tab(s) ( 50 mg ), PO, Daily, Instructions: 0.5 tabs po daily, # 90 tab(s), 3 Refill(s), Type: Maintenance, patient has supply at home (Rx), 1 tab(s) po daily,Instr:Discontinue Diltia zem; do not crush or chew Discontinued amlodipine 5 mg oral tablet: 1 tab(s) ( 5 mg ), PO, Daily, Instructions: Discontinue Metoprolol, # 30 tab(s), 11 Refill(s), Type: Maintenance, Pharmacy: [facility], 1 tab(s) po daily,Instr:Discontinue Metoprolol. Cardiology Consultation as scheduled. Summary: Symptoms suggest anxiety rather than Amlodipine side effect. Diagnosis Diabetes mellitus type II (ICD9 250.00). Statin intolerance (ICD9 995.27). Dyslipidemia, goal LDL below 100 (ICD9 2 72.4). Course: Unchanged. Extracted from: Title: Holter removal Author: Amira Tatum CMA Date: 07/10 Holter Monitor #1 removed from pt. at 11 :30am. Report printed and forwarded to [facility] with diary. Extracted from: Title: Holter Monitor Author: Amira Tatum CMA Date: 07/09 Applied Holter Monitor #1 at 11:45am. Pt . given instructions with diary. Advised to return tomorrow for removal. Extracted from: Title: Pneumovax questions Author: Jenn Alvarado CMA Date: 01/05/14 <Add Addendum> Addendum by Klaudia Stanton CMA on January 05, 2014 4:00:54 PM SAFETY ANALYST From: Klaudia Stanton CMA To: [employer] ([id number] Wendi McdonaldAlkymos; Sent: 01/05/2014 4:00:54 PM SAFETY ANALYST Subject: FW: Pneumovax vaccine Addendum by Klaudia Stanton CMA on January 05, 2014 3:55:34 PM SAFETY ANALYST PATIENT CONTATED Addendum by Panchito Varela MD on 2013 3:51:54 PM SAFETY ANALYST From: Panchito Varela MD To: Klaudai Stanton CMA; Sent: 01/05/2014 3:51:54 PM SAFETY ANALYST Subject: RE: Pneumovax vaccine Sure. Can have Prevnar, but might have t o pay. [facility] Addendum by Klaudia Stanton CMA on January 05, 2014 2:30:29 PM SAFETY ANALYST From: Klaudia Stanton CMA To: Panchito Varela MD; Sent: 01/05/2014 2:30:29 PM SAFETY ANALYST Subject: FW: Pneumovax vaccine Patient received pneumovax 23 on 06/23/10 Should she receive Prevnar-13? From: Jenn Alvarado CMA (Phone Message [employer] ([id number])) To: Klaudia Stanton CMA; Sent: 01/05/2014 2:25:57 PM SAFETY ANALYST Subject: Pneumovax vaccine Vernell is requesting a call back from Nicolle kowalski only. She has questions regarding the pneumovax vaccine. She received the 23 wondering if she should receive Prevnar- 13? Please call Vernell. She also thanks you for the call back and does not want to take another chance with another Sulfa medication. [phone] Demetra Extracted from: Title: DM care Author: Ragini Wagner LPN Date: 3 Pt. appears on [facility] DM list as out of par ameters for optimal control as her last BP was elevated. At that time there was als o some concern about her medication compliance. She states her BP is lower and declines to give any readings. She declines to call in readings. She declin es a f/u call. She states she will be in to see J when she returns to [place]. Extracted from: Title: follow-up regarding medication Author: Ragini Wagner LPN Date: 10/07/10 change Spoke with pt. She reports that she curr ently has experienced no side effects from restarting lovastatin.
--- OUTSIDE RECORDS SUMMARY | 2021-12-09 11:02 | XMS_ITS | Summary of Care ---
:1935 Author Organization [facility] s Address [facility] [address] [place] [address]- Care Team Providers Name Role Phone Panchito Varela MD Primary Care Physician Encounter 12/01/16 - 12/01/[address] [facility] [address] [place] [address]- Attending Physician: JASON , Referring Physician: Panchito Varela MD Problem List Condition Effective Dates Status [...] Frequent PVCs(Confirmed) Active Vitamin D deficiency(Confirmed) Active 3gmiy6Danjw colonoscopy q 3 yrs.3both Allergies, Adverse Reactions, [...] TEST FOUR TIMES A DAY OR DIRECTED [id number], # 100 unknown unit, Pharmacy: [facility] Start Date: 02/15/12 Status: OrderedBD Ultra Fine III Mini Pen Needlels BD Ultra Fine III Mini Pen Needlels, See Instructions, Instructions: use as directed, Supply, # 100 EA, 3 Refill(s), Type: Maintenance, Pharmacy: [facility], use as directed Start Date: 07/24/16 Status: Orderedbumetanide 1 mg oral tablet See Instructions, Instructions: TAKE ONE TABLET BY MOUTH ONCE DAILY, # 90 unknown unit, TAKE ONE TABLET BY MOUTH ONCE DAILY Start Date: 05/07/15 Status: OrderedCalcium 600+D See Instructions, Instructions: 1200/1000 Tu/Th/Sa/Pimentel, 0 Refill(s), Type: Maintenance Start Date: 01/28/16 Status: OrderedCartia XT 240 mg/24 hours oral capsule, extended release 1 cap(s) ( 240 mg ), PO, Daily, # 90 cap(s), 3 Refill(s), Type: Maintenance, Pharmacy: [facility],1 cap(s) po daily Start Date: 07/23/16 Status: OrderedCayenne pepper drops Cayenne pepper drops, See Instructions, Instructions: 9 gtts daily, Supply, 0 Refill(s), Type: Maintenance Start Date: 01/28/16 Status: OrderedCoenzyme Q10 PO, bid, 0 Refill(s), Type: Maintenance Start Date: 03/07/09 Status: OrderedCONTOUR NEXT EZ BGM MG BEAD See Instructions, Instructions: USE DIRECTED FREE METER, # 1 unknown unit, Pharmacy: [facility], USE DIRECTED FREE METER Start Date: [...] # 1.5 tab(s), 0 Refill(s), Type: Maintenance, Pharmacy:[facility], take half tab now for vaginal symp... Start Date: 08/05/16 Status: Orderedfluconazole 150 mg oral tablet 1 tab(s) ( 150 mg ), PO, Once, # 1 tab(s), 0 Refill(s), Type: Soft Stop, Pharmacy: [facility], 1 tab(s) po once Start Date: 08/05/16 Status: Orderedfluticasone 50 mcg/inh nasal spray See [...] Refill(s), Type: Maintenance Start Date: 07/24/14 Status: OrderedLanbridgettus Solostar Pen 100 units/mL subcutaneous solution ( 9 unit(s) ), subcutaneous, hs, # 15 mL, 3 Refill(s), Type: Maintenance, Pharmacy: [id number], 9 unit(s) subcutaneous hs [...] unknown unit, 0 Refill(s), Type: Maintenance, Pharmacy: [facility] Start Date: 11/03/16 Status: Orderednystatin 100,000 units/g topical cream 1 ada, TOP, TID, Instructions: to replace fluconazole apply to external vaginal area, # 30 gm, 0 Refill(s), Type: Maintenance, Pharmacy: [facility], 1 ada top tid,x14 day(s),Instr:to replace [...] yrs. (Due fall 2012). Has done in [place].5Diverticulosis, 6mm sessile serrated adenoma ascending colon 6Excellent and stable. OK to repeat 5-10 yrs. Social History Social History Type Response Smoking Status Never smoker
--- OUTSIDE RECORDS SUMMARY | 2021-12-09 11:02 | XMS_ITS | Summary of Care ---
:1935 Author Organization [facility] s Address [address] [address]- Care Team Providers Name Role Phone Panchito Varela MD Primary Care Physician Encounter 12/05/15 - 12/07/[address] [address]- Discharge Diagnosis: Statin intolerance Discharge Diagnosis: Type 2 diabetes mellitus with hemoglobin A1c goal of less than 7.0% Discharge Diagnosis: Impingement syndrome, shoulder Discharge Diagnosis: B12 deficiency Discharge Diagnosis: Statin intolerance Discharge Diagnosis: HTN (hypertension) Attending Physician: Panchito Varela MD Vital Signs Most recent to oldest [Reference Range]: 1 2 Height Measured 70.5 in (12/05/15 9:37 AM) Weight Measured 203 lb (12/05/15 9:37 AM) Body Mass Index 28.71 kg/m2 (12/05/15 9:37 AM) BSA 2.14 m2 (12/05/15 9:37 AM) Blood Pressure [90-140/60-90 mmHg] 158/74 mmHg 159/8 5 mmHg *HI* *HI* (12/05/15 10:01 AM) (12/05/15 9:37 AM) Mean Arterial Pressure 102 mmHg 110 mmHg (12/05/15 10:01 AM) (12/05/15 9:37 AM) Peripheral Pulse Rate [60-100 bpm] 60 bpm (12/05/15 9:37 AM) Allergies Verified? Yes (12/05/15 9:37 AM) Medication History Verified? Yes (12/05/15 9:37 AM) Problem List Condition Effective Dates Status [...] Frequent PVCs(Confirmed) Active Vitamin D deficiency(Confirmed) Active [id number] colonoscopy q 3 yrs. Allergies, Adverse Reactions, [...] TEST FOUR TIMES A DAY OR DIRECTED [phone], # 100 unknown unit, Pharmacy: [facility] Start Date: 02/15/12 Status: OrderedBD ULTRA ULTRA=FINE 111 MINI PEN NEEDLES BD ULTRA ULTRA=FINE 111 MINI PEN NEEDLES, See Instructions, Instructions: INJECT DIRECTED, Supply, # 100 EA, 6 Refill(s), Type: Maintenance, Pharmacy: [facility], INJECT DIRECTED Start Date: 07/04/15 Status: OrderedBD ULTRA-FINE III MINI PEN NEEDLES MG INJECTABLE See Instructions, Instructions: INJECT DIRECTED, # 200 EA, 5 Refill(s), Pharmacy: [facility], INJECT DIRECTED [id number] Start Date: 09/26/13 Status: Orderedbumetanide 1 mg [...] 3 Refill(s), Type: Soft Stop, Pharmacy: [facility], TAKE ONE CAPSULE BY MOUTH ONCE DAILY [...] 2 box(es), 1 Refill(s), Type: Maintenance, Pharmacy: [id number], TEST 4 X Day Start [...] Maintenance Start Date: 10/29/15 Status: Ordered Results Chemistry Most recent to oldest [Reference Range]: 1 Sodium Level TR 141 mEq/L (08/27/15 10:15 AM) Potassium Level TR 4.3 mEq/L (08/27/15 10:15 AM) Chloride TR 100 mEq/L (08/27/15 10:15 AM) CO2 TR 30 mEq/L (08/27/15 10:15 AM) Anion Gap TR 15.3 mEq/L (08/27/15 10:15 AM) Glucose Level TR 98 mg/dL (08/27/15 10:15 AM) BUN TR 24 mg/dL (08/27/15 10:15 AM) Creatinine TR 1.2 mg/dL (08/27/15 10:15 AM) BUN/Creatinine Ratio TR 20 (08/27/15 10:15 AM) eGFR TR 43 mL/min (08/27/15 10:15 AM) Calcium TR 9.3 mEq/dL (08/27/15 10:15 AM) Bilirubin Total TR 0.4 mg/dL (08/27/15 10:15 AM) Alkaline Phosphatase TR 71 unit/L (08/27/15 10:15 AM) AST TR 34 unit/L (08/27/15 10:15 AM) ALT TR 25 unit/L (08/27/15 10:15 AM) Protein Total TR 7 gm/dL (08/27/15 10:15 AM) Albumin Level TR 4.3 g/dL (08/27/15 10:15 AM) Vitamin B12 Level TR 21 pg/mL (08/27/15 10:15 AM) T4 Free TR 1.10 ng/dL (08/27/15 10:15 AM) TSH TR 2.67 mIU/L (08/27/15 10:15 AM) Hematology Most recent to oldest [Reference Range]: 1 WBC TR 7.3 x10^3/uL (08/27/15 10:15 AM) RBC TR 445 x10^6/uL (08/27/15 10:15 AM) Hgb TR 13.5 g/dL (08/27/15 10:15 AM) Hct TR 40.2 % (08/27/15 10:15 AM) MCV TR 90 fL (08/27/15 10:15 AM) MCH TR 30.3 pg (08/27/15 10:15 AM) MCHC TR 33.6 gm/dL (08/27/15 10:15 AM) Platelet TR 260 x10^3/uL (08/27/15 10:15 AM) Immunizations Given and Recorded Vaccine Date Status [...] pap screening.3Diverticulosis, 6mm sessile serrated adenoma ascending [id number] 3 yrs. (Due fall 2012). Has done in [place].5Excellent and stable. OK to repeat 5-10 yrs. Social History Social History Type Response Smoking Status Never smoker Assessment and Plan Extracted from: Title: DM, B-12 Author: Panchito Varela MD Date: 6 Impression and Plan Diagnosis Impingement syndrome, shoulder (LDD09-EW M75.40). Statin intolerance (HHR54-YM Z88.9). Type 2 diabetes mellitus with hemoglobin A1c goal of less than 7.0% (BBJ37-NH E11.9). Statin intolerance (LHF15-QW Z88.9). HTN (hypertension) (IOL27-JT I10). B12 deficiency (ELQ22-BE E53.8). Course: Good response to treatment. Orders Orders (Selected) Outpatient Orders Ordered Physical Therapy (Request): Instructions : Eval and treat myofacial neck pain, Myofacial muscle pain Return to Clinic (Request): Return in 1 year w/ D. Barry bring meter and log Return to Clinic: RFV: Lab standing orde r: BMP, MATIAS, lipid q12mo Hgb A q3-6mo Order Return to Clinic (Request): RFV: Catarina solano, Return in 6 months, Instructions: after lab. Patient Instructions: Counseled: Patient , Diet, Activity, Verbalized understanding, weight loss.
--- OUTSIDE RECORDS SUMMARY | 2021-12-09 11:02 | XMS_ITS | Summary of Care ---
:1935 Author Organization [facility] s Address [facility] s - [address] [address]- Care Team Providers Name Role Phone Panchito Varela MD Primary Care Physician Encounter 11/12/15 - 11/14/15 [facility] [address] [place] [address]- Attending Physician: Panchito Varela MD Vital Signs [...] Frequent PVCs(Confirmed) Active Vitamin D deficiency(Confirmed) Active [id number] colonoscopy q 3 yrs. Allergies, Adverse Reactions, [...] TEST FOUR TIMES A DAY OR DIRECTED [id number], # 100 unknown unit, [facility] [...] 5 Refill(s), [facility]: [facility], INJECT DIRECTED [id number] Start Date: 09/26/13 Status: Orderedbumetanide 1 mg [...] unit, 3 Refill(s), Type: Soft Stop, Pharmacy: [facility], TAKE ONE CAPSULE BY MOUTH ONCE DAILY -DOSE INCREASE 09/04/2014 Start Date: 11/04/15 Status: OrderedCoenzyme Q10 PO, Daily, 0 Start Date: 03/07/09 Status: OrderedCONTOUR NEXT EZ BGM MG BEAD See Instructions, Instructions: USE DIRECTED FREE METER, # 1 unknown unit, Pharmacy: [facility], USE DIRECTED FREE METER Start Date: 05/07/15 [...] unknown unit, 1 Refill(s),Type: Soft Stop, Pharmacy: [facility], TAKE ONE TABLET BY MOUTH ONCE [...] pap screening.3Diverticulosis, 6mm sessile serrated adenoma ascending [id number] 3 yrs. (Due fall 2012). Has done in [place].5Excellent and stable. OK to repeat 5-10 yrs. Social History Social History Type Response Smoking Status Never smoker Assessment and Plan No data available for this section
--- OUTSIDE RECORDS SUMMARY | 2021-12-09 11:02 | XMS_ITS | Summary of Care ---
:1935 Author Organization [facility] s Address [facility] s - [address] [address]- Care Team Providers Name Role Phone Panchito Varela MD Primary Care Physician Encounter 11/12/15 - 11/14/[address] [facility] [address] [place] [address]- Attending Physician: Panchito Varela MD Vital Signs [...] Frequent PVCs(Confirmed) Active Vitamin D deficiency(Confirmed) Active [id number] colonoscopy q 3 yrs. Allergies, Adverse Reactions, [...] TEST FOUR TIMES A DAY OR DIRECTED [phone], # 100 unknown unit, [facility] [...] 5 Refill(s), [facility]: [facility], INJECT DIRECTED [id number] Start Date: 09/26/13 Status: Orderedbumetanide 1 mg [...] unit, 3 Refill(s), Type: Soft Stop, Pharmacy: [facility], TAKE ONE CAPSULE BY MOUTH ONCE DAILY -DOSE INCREASE 09/04/2014 Start Date: 11/04/15 Status: OrderedCoenzyme Q10 PO, Daily, 0 Start Date: 03/07/09 Status: OrderedCONTOUR NEXT EZ BGM MG BEAD See Instructions, Instructions: USE DIRECTED FREE METER, # 1 unknown unit, Pharmacy: [facility], USE DIRECTED FREE METER Start Date: 05/07/15 [...] unknown unit, 1 Refill(s),Type: Soft Stop, Pharmacy: [facility], TAKE ONE TABLET BY MOUTH ONCE [...] 2 box(es), 1 Refill(s), Type: Maintenance, Pharmacy: [id number], TEST 4 X [...] pap screening.3Diverticulosis, 6mm sessile serrated adenoma ascending [id number] 3 yrs. (Due fall 2012). Has done in [place].5Excellent and stable. OK to repeat 5-10 yrs. Social History Social History Type Response Smoking Status Never smoker Assessment and Plan No data available for this section
== END 2021-12-09 10:40 | disposition home or self-care (01) ==
LOC: INJ CL 10:40
PROVIDERS: Visit Provider Family Medicine
DX: M54.16 Radiculopathy, lumbar region (principal); M51.36 Other intervertebral disc degeneration, lumbar region
CPT/HCPCS: 64483; Q9966

== ENCOUNTER 2022-03-10 10:11 | Outpatient (CLI) | payer MEDICARE, BC, SELFPAY | END 2022-03-10 10:12 | disposition home or self-care (01) | LOC: INJ CL 10:13 | PROVIDERS: Visit Provider Family Medicine | DX: M54.16 Radiculopathy, lumbar region (principal); M51.36 Other intervertebral disc degeneration, lumbar region | CPT/HCPCS: 64483; J1100; Q9966 ==

== ENCOUNTER 2022-06-16 12:35 | Outpatient (CLI) | payer MEDICARE, BC, SELFPAY | END 2022-06-16 12:36 | disposition home or self-care (01) | PROVIDERS: Visit Provider Family Medicine | DX: M54.16 Radiculopathy, lumbar region (principal); M51.36 Other intervertebral disc degeneration, lumbar region | CPT/HCPCS: 64483; J1100; Q9966 ==

== ENCOUNTER 2022-09-08 12:29 | Outpatient (CLI) | payer MEDICARE, BC, SELFPAY | END 2022-09-08 12:30 | disposition home or self-care (01) | LOC: INJ CL 12:29 | PROVIDERS: Visit Provider Family Medicine | DX: M54.16 Radiculopathy, lumbar region (principal) | CPT/HCPCS: 64483; J1100; Q9966 ==

== ENCOUNTER 2023-02-02 12:30 | Outpatient (CLI) | payer MEDICARE, BC, SELFPAY ==
--- OUTSIDE RECORDS SUMMARY | 2023-02-02 12:33 | XMS_ITS | Continuity of Care Document ---
Author Name Unknown Organization [facility] Address [address] [facility] [place] [address] Phone Care Team Providers Care Die Operator Name Role Phone Eri Stubbs MD Unavailable Unavailable Allergies, Adverse Reactions, Alerts Substance Reaction Status Criticality metronidazole Unknown Active No Information Sulfa (Sulfonamide Antibiotics) Unknown Active No Information Medications Medication Instructions Dosage Effective Dates (start - stop) Status Comments lidocaine 4 % topical patch as needed - Active bumetanide 1 mg tablet take 1 tablet by oral route every day 1 MG - Active losartan 100 mg tablet take 1 tablet by oral route every day 100 MG - Active Galzin 50 mg (zinc) capsule take 1 capsule by oral route 3 times every day on an empty stomach 50 MG - Active QH-absorb Plus PQQ 100 mg-10 mg capsule - Active Vitamin D3 50 mcg (2,000 unit) capsule - Active vitamin B12 500 mcg-folic acid 400 mcg tablet - Active Cinnamon 500 mg capsule - Active cranberry 500 mg capsule - Active Cartia XT 240 mg capsule,extended release take 1 capsule by oral route every day 240 MG - Active Probiotic 10 billion cell capsule - Active Candicidal 100 mg-150 mg-50 mg-150 mg capsule - Active Emergen-C 1,000 mg oral effervescent powder pack - Active Lantus U-100 Insulin 100 unit/mL subcutaneous solution inject by subcutaneous route as per insulin protocol 0.00 - Active magnesium citrate 125 mg capsule - Active tizanidine 2 mg capsule 1 tablet in the PM - Active Systane (propylene glycol) 0.4 %-0.3 % eye drops - Active diclofenac 1 % topical gel apply (2G) by topical route 2 times every day to the affected area(s) 2 G - Active Biofreeze (menthol) 10 % topical cream - Active Naltrexone 4.5 mg ORAL TABLET 1 tab daily - No Longer Active Movantik 25 mg tablet take 1 tablet by oral route every day in the morning 25 MG - No Longer Active hydrocodone 5 mg-acetaminophen 325 mg tablet TAKE 1 TABLET BY MOUTH 3 TIMES A DAY NEEDED CHRONIC PAIN - No Longer Active Procedures Procedure Date INJECT TRIGGER POINTS, =/> 3 OFFICE/OUTPATIENT VISIT, EST No Charge For Visit Per Prov OFFICE/OUTPATIENT VISIT, EST OFFICE/OUTPATIENT VISIT, NEW Advance Directives Directive Yes / No Effective Date File Name No Information Encounters Encounter Description Practice Location Reason(s) For Visit Diagnoses Date Provider Providers Copied on Encounter OFFICE/OUTPA TIENT VISIT, [facility], [address] [place] [address], [id number] , [place] [phone] [facility] bilateral shoulder pain (chief complaint) Chronic pain syndromePain in right shoulderPain in left kneeMyalgia, other site Gera Hwang. [address] [place], [place] [address], [place], [id number] , [place]. [phone] Referring Provider: Eri Stubbs, [address] [place] [address] [place], [address] . tel:[phone] [facility], [address] [place] [place] [address], [id number] , [place] tel:[phone] [facility] bilateral shoulder pain (chief complaint) Chronic pain syndromeConstipationP ain in right shoulderLong term (current) use of opiate analgesic 3 Evelyne Hwang. [address] [facility] [place], [id number] , [place]. tel:[phone] Referring Provider: Eri Stubbs, [address] [place] [place], [address] . tel:[phone] OFFICE/OUTPA TIENT VISIT, [facility], [address] [place] [address] [place], [id number] , [place] [phone] [facility] bilateral shoulder pain (chief complaint) Chronic pain syndromePain in right shoulderLong term (current) use of opiate analgesicConstipation Myalgia, other site 3 Evelyne Hwang. [address] [facility] [place], [id number] , [place]. tel:[phone] Referring Provider: Eri Stubbs, [address] [place] [address] [place], [address] . tel:[phone] OFFICE/OUTPA TIENT VISIT, [facility], [address] [place] [address] [place], [id number] , [place] [phone] [facility] bilateral shoulder pain (chief complaint) Spinal stenosis, lumbar region with neurogenic claudicationPain in right shoulderCervicalgiaCh ronic pain syndrome 3 Evelyne Hwang. [address] [place], [place] [address], [place], [id number] , [place]. tel:[phone] Referring Provider: Oracio Jordan, [address] [place], [place] [address], [address] . tel:[phone] Family History Family Member Type Diagnosis Age At Onset No Information Payers Payer name Insurance type Covered libertarian ID Mario carlin(s) Medicare MB [id number] [facility] [id number] Social History Type Description Quantity Date Captured Comments Alcohol Use Details No Caffeine Use Details Unknown Tobacco Use Status Current non-smoker Smoking Status Never smoker Sex Female Chief Complaint And Reason For Visit From encounter dated '01/04/2023 15:40'. bilateral shoulder pain (chief complaint). Description: Duration: chronic. Severity level is 6. It occurs constantly and is fluctuating. Location: bilateral shoulder. The pain is aching and sharp. The pain is aggravated by lifting and movement. The pain is relieved by rest and stretching. Reason For Referral Reason For Referral No Information Plan Of Treatment Date Type Action Status Goal STATEMENT SERVICES REPRESENTATIVE Scanned. Due on due Goal ALT (SGPT). Due on due Goal OARS. Due on due Goal UDT. Due on due Goal Order Annual PT. Due on due Goal GRAIN UNLOADER MACHINE Paperwork. Due on due Goal AST (SGOT). Due on due Goal Creatinine. Due on due Goal PHQ-9. Due on du e Goal Weight. Due on d ue Goal Review Allergy List. Due on due Goal Height. Due on d ue Goal Medication Reconciliation. D ue on due Goal Update Social History. Due o n due Goal Tobacco Use. Due on due Goal Unhealthy drug use screening . Due on due Goal Zoster vaccine (1st). Due on due Goal Order Annual PT. Due on due Goal GRAIN UNLOADER MACHINE Paperwork. Due on due Goal UDT. Due on due Goal OARS. Due on due Goal STATEMENT SERVICES REPRESENTATIVE Scanned. Due on due Goal AST (SGOT). Due on due Goal ALT (SGPT). Due on due Goal Creatinine. Due on due Goal Update Social History. Due o n due Goal Medication Reconciliation. D ue on due Goal PHQ-9. Due on du e Goal Zoster vaccine (1st). Due on due Goal Tobacco Use. Due on due Goal Unhealthy drug use screening . Due on due Goal Weight. Due on d ue Goal Review Allergy List. Due on due Goal Height. Due on d ue Goal AST (SGOT). Due on due Goal ALT (SGPT). Due on due Goal Creatinine. Due on due Goal STATEMENT SERVICES REPRESENTATIVE Scanned. Due on due Goal Order Annual PT. Due on due Goal OARS. Due on due Goal UDT. Due on due Goal GRAIN UNLOADER MACHINE Paperwork. Due on due Goal Medication Reconciliation. D ue on due Goal Update Social History. Due o n due Goal Zoster vaccine (1st). Due on due Goal PHQ-9. Due on du e Goal Tobacco Use. Due on due Goal Review Allergy List. Due on due Goal Weight. Due on d ue Goal Height. Due on d ue Goal Unhealthy drug use screening . Due on due Goal PHQ-9. Due on du e Goal Weight. Due on d ue Goal Update Social History. Due o n due Goal Tobacco Use. Due on due Goal Review Allergy List. Due on due Goal Medication Reconciliation. D ue on due Goal Zoster vaccine (1st). Due on due Goal Unhealthy drug use screening . Due on due Goal Height. Due on d ue Appointment Iesha Mackay BOOKED History Of Present Illness Encounter Date Complaint History Of Prese nt Illness bilateral shoulder pain Duration : chronic. Severity level is 6. It occurs constantly and is fluctuating. Location: bilateral shoulder. The pain is aching and sharp. The pain is aggravated by lifting and movement. The pain is relieved by rest and stretching. Comments: Ms Amos small presents for follow up; she is accompanied by her daughter by telephone, who participates in the discussion. She stopped the Imbler as she was getting significant constipation, even with Movantik. Has been off of it for a little over a week. She went back on the LDN, which seems to be helping some. Needs a refill. Pain is in the bilat shoulders, R>L. Aching, cramping in quality; exacerbated by use of the limb (ie, using a computer). Ranges in severity from 4-8/10. She inquires about getting a repeat steroid injection as soon as tomorrow as we are doing TPI today (OK to do steroid injections); I offered to order this for her, but she prefers to see her PCP for this.Also c/o pain in her L knee; she is s/p TKA. Previously was able to get steroid injections. Inquires about additional options. bilateral shoulder pain Duration : chronic. Location: bilateral shoulder. bilateral shoulder pain Duration : chronic. Severity level is 6. It occurs constantly and is fluctuating. Location: bilateral shoulder. The pain is aching and sharp. The pain is aggravated by lifting, movement, sitting, housework and prolonged positioning. The pain is relieved by physical therapy, changing positions, rest and medications. Comments: Ms Amos small presents for follow up; she is accompanied by her daughter, who participates in the discussion. She has been using about 2 Imbler per day, which has been effective. Has had SE of constipation, which has only partially responded to OTC stool softeners. Pain is in the bilateral shoulders, 5-7/10 in severity (though can be less severe in the morning/after rest). C/o weakness in the right shoulder. Has done two sessions of PT and several OT; has been doing her HEP. bilateral shoulder pain Severity level is 10. It occurs constantly and is stable. Location: bilateral shoulder. The pain radiates to the BL arms. The pain is aggravated by bending, lifting, movement, changing positions, housework and. The pain is relieved by rest and lying down. Comments: Ms Amos small was referred to our clinic by a friend. She is accompanied by her daughter, who participated in the discussion. She has several pain generators, including the right shoulder, back, left knee and neck. Primary complaint is pain in the right shoulder; pain has been present for about 5 years, and began without inciting event. Pain is in the entire shoulder, with radiation to the proximal arm. Pain is very debilitating, and worse with any use of the extremity. She saw ortho, and surgery was recommended (for the left shoulder) but she did not want to pursue this. Tried injections, with modest benefit. Back pain is minimally bothersome at this time, but she has pain in the posterior aspects of the bilateral thighs that occurs with walking. Pain usually improves with sitting. Uses a walker, and notes pain is better with flexion. Pain is constant, 10/10 in severity. Past Treatments- Ibuprofen- Oxycodone -- SE- RONNIE- Lidocaine patch- LDN -- 4.5 mg, but with diminishing benefit- Shoulder injectionsShtobias is interested in any treatment that will provide benefit with minimal SE. Functional Status Date Functional Assessmen t No Information Instructions Date Instruction Additional Infor mation No Information Assessments Type Assessment Date assessment Chronic pain syndrome impression Pain in multiple loc ations, felt to be due to arthritis. Localized to the R shoulder, lumbar spine, cervical region and L knee.She has tried ibuprofen, oxycodone (SE -- didn't like how she felt on it), RONNIE, lidocaine patches. She prefers less-invasive options; specifically said she does not want surgeries. assessment Pain in right shoulder impression Pain in right should er, radiating to the proximal arm that began about 5 yrs ago w/o inciting event. Good results with Imbler, but intolerable SE of constipation, even with Movantik. assessment Pain in left knee impression Pain in left knee, s /p TKA. No records/imaging of her knee. Discussed RFA; potentially interested and will consider. assessment Myalgia, other site Mental Status Date Cognitive Assessment Orientation - [place] ed to time, place, person, situation.Normal Orientation Patient Care Teams Name Effective Dates (start - stop) Status Members No Information
--- OUTSIDE RECORDS SUMMARY | 2023-02-02 12:33 | XMS_ITS | Continuity of Care Document ---
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 Pain in both feet(Discharge Diagnosis) - 11/20/22 Peripheral neuropathy(Discharge Diagnosis) - 11/20/22 Attending Physician: Vera Low DPM Allergies, Adverse Reactions, Alerts Substance Reaction Severity Status sulfa drug hives Active Flagyl hives Active statins Active Assessment and Plan Extracted from: Title:Consult Note Author:Vera Low DPM Date:11/19/22 1.??Onychodystrophy??(L60.3) Ordered: 74239 debridement nail any method 6/> (Charge), Quantity: 1, Onychodystrophy Pain in both feet Peripheral neuropathy 20801 office o/p new low 30-44 min (Charge), Quantity: 1, Onychodystrophy Pain in both feet Peripheral neuropathy ?? 2.??Pain in both feet??(M79.671) Ordered: 42891 debridement nail any method 6/> (Charge), Quantity: 1, Onychodystrophy Pain in both feet Peripheral neuropathy 04360 office o/p new low 30-44 min (Charge), Quantity: 1, Onychodystrophy Pain in both feet Peripheral neuropathy ?? 3.??Peripheral neuropathy??(G62.9) Ordered: 72289 debridement nail any method 6/> (Charge), Quantity: 1, Onychodystrophy Pain in both feet Peripheral neuropathy 36449 office o/p new low 30-44 min (Charge), Quantity: 1, Onychodystrophy Pain in both feet Peripheral neuropathy ?? A comprehensive??history and physical examination were preformed. The patient was educated on clinical and radiographic findings, diagnosis and treatment plans. Patient state that they understand all that has been explained and all questions were answered to??their apparent satisfaction.? -Discussed guidelines for home preventative foot care and signs and symptoms to watch for. -Advised??patient on avoidance of barefoot walking and monitoring feet daily.? -Nails 1-5 bilateral??were trimmed in length and thickness to the satisfaction of the patient with a sterile nail nipper without incident -Recommended moisturizer guide dispensed to the patient today. Recommend urea cream. Pumice stone or emery board to the callused area.?? -Continue crest pads. ?? -Instructed patient to contact our office if any foot problems develop before next visit. Follow up 9-10 weeks for nail trimming ? Time:?? This appointment lasted 30 minutes.? Immunizations Given and Recorded Vaccine Date Status Refusal Reason influenza virus vaccine, inactivated 11/12/15 Rachid rded influenza virus vaccine, inactivated 10/30/14 Rachid rded pneumococcal (PCV13) 01/12/14 Recorded tetanus/diphth/pertuss (Tdap) adult/adol 08/17/11 Recorded influenza, H1N1, inactivated 02/01/09 Recorded ZOS, shingles 12/20/07 Recorded pneumococcal (PPSV23) 06/13/02 Recorded Medications aspirin 81 mg oral tablet = 1 tab(s) ( 81 mg ), PO, Daily, # 30 tab(s), 0 Refill(s), Type: Maintenance Start Date: 08/18/16 Status: Ordered bumetanide 1 mg oral tablet = 1 tab(s) ( 1 mg ), PO, Daily, # 30 tab(s), 0 Refill(s), Type: Maintenance Start Date: 08/18/16 Status: Ordered cinnamon ( 1,000 mg ), po, bid, 0 Refill(s), Type: Maintenance Start Date: 08/18/16 Status: Ordered CoQ10 ( 300 mg ), po, daily, 0 Refill(s), Type: Maintenance Start Date: 08/18/16 Status: Ordered dilTIAZem 300 mg/24 hours oral capsule, extended release = 1 cap(s) ( 300 mg ), PO, Daily, # 90 cap(s), 0 Refill(s), Type: Maintenance Start Date: 08/18/16 Status: Ordered Emergen-C 0 Refill(s), Type: Maintenance Start Date: 08/18/16 Status: Ordered HumaLOG subcutaneous, Instructions: 6-9 units with meals, 0 Refill(s), Type: Maintenance Start Date: 08/18/16 Status: Ordered Lantus subcutaneous, Instructions: 9 units at bedtime, 0 Refill(s), Type: Maintenance Start Date: 08/18/16 Status: Ordered lisinopril 20 mg oral tablet = 1 tab(s) ( 20 mg ), PO, Daily, # 30 tab(s), 0 Refill(s), Type: Maintenance Start Date: 08/18/16 Status: Ordered metFORMIN 500 mg oral tablet = 1 tab(s) ( 500 mg ), PO, BID, # 180 tab(s), 0 Refill(s), Type: Maintenance Start Date: 08/18/16 Status: Ordered [place]-3 oral capsule 0 Refill(s), Type: Maintenance Start Date: 08/18/16 Status: Ordered pravastatin 10 mg oral tablet = 1 tab(s) ( 10 mg ), PO, Daily, # 30 tab(s), 0 Refill(s), Type: Maintenance Start Date: 08/18/16 Status: Ordered Probiotic Formula oral capsule 1 cap(s), po, daily, 0 Refill(s), Type: Maintenance Start Date: 08/18/16 Status: Ordered spironolactone 25 mg oral tablet 0.5, po, daily, Instructions: take one half tablet daily, 0 Refill(s), Type: Maintenance Start Date: 08/18/16 Status: Ordered Vitamin D3 2000 intl units oral capsule = 1 cap(s) ( 2,000 International Unit ), po, daily, 0 Refill(s), Type: Maintenance Start Date: 08/18/16 Status: Ordered Problem List Diagnosis Diagnosis Type Effective Dates Health Status Clinical Service Informant Pain in both feet Discharge Diagnosis 11/20/22 Peripheral neuropathy Discharge Diagnosis 11/20/22 Onychodystrophy Discharge Diagnosis 11/20/22 Procedures Procedure Date Related Diagnosis Body Site Status Debridement of nail(s) by an y method(s); 6 or more 9/28/23 Completed Anterior colporrhaphy 09/14/16 Com pleted Bilateral oophorectomy 09/14/16 Co mpleted Biopsy of vulva 09/14/16 Completed Vaginal hysterectomy 09/14/16 Comp leted Vital Signs Most recent to oldest [Reference Range]: 1 Allergies Verified? Yes (11/19/22 1:26 PM) Medication History Verified? Yes (11/19/22 1:26 PM) Social History Social History Type Response Tobacco Lived with a smoker for 23 years Smoking Status Never smoker Sex Female Podiatry Consult note * Vera Low DPM: PERFORM Event Display: Podiatry Consultation Authored Date: [id number] LORNE EMERY Address: [address] [place] [address] Sex:Female :1935 Location:[facility] Date of Service:11/19/2022 Chief Complaint New patient consult, footcare Reason for Consultation Toenail care History of Present Illness This is a??87 year old female??patient presents to the clinic today with her and their caregiver??for problems with their toenails. ??Due to the patient's lack of mobility and poor hand strength, they are unable to trim the toenails on their own. ??The toenails are tender due to the thickness. ??The tenderness is aggravated with shoe gear and activity. ??The patient has altered gait and ahistory of poor circulation.??She does admit to??occasional numbness, burning and tingling.?Theyreports??that their elongated toenails??cause marked??limitations in ambulation due to difficulty??and pain in shoegear.??No other pedal complaints at this time.?? Review of Systems Deferred Physical Exam On General Observation: Patient is pleasant, cooperative The patient is alert and oriented to time, place and person. Patient has normal affect and mood and is in no acute distress. ?? Vascular:? DP and PT pulses are palpable. ?? CFT less than 3 seconds to all digits bilateral. ?? Skin temperature is warm to warm from proximal to distal bilateral. Hair growth is noted.?? Lower Extremity edema: Mild No varicosities noted. ? Neuro: ?? Light touch intact bilateral. Protective sensation??diminished??at all pedal sites via [place] Fabiola 5.07 monofilament bilateral. ?? Vibratory sensation:??absent at the hallux bilaterally? Dermatological:?? Skin appears well hydrated and supple. Skin is atrophic with multiple areas of hyperpigmentation Toenails 1,2,3,4,5 bilateral are discolored, elongated, thickened, brittle with subungual debris. Webspaces 1-4 are clean, dry, intact bilateral. ?? No rashes, subcutaneous nodules, or open lesions noted. Hyperkeratotic tissue:??mid??diffuse to the plantar feet??at the metatarsal heads ?? Musculoskeletal/Orthopaedic:?? General foot morphology: Rectus +5/5 muscle strength Dorsiflexion, Plantarflexion, Inversion, Eversion B/L 1st MPJ ROM:??decreased??without pain or crepitus bilateral. Midtarsal and Subtalar joint??ROM:??decreased without pain or crepitus bilateral. ?? Ankle joint ROM is decreased??in dorsiflexion B/L. Contracted digits noted to bilateral feet. Patient uses crest pad to help with this. Assessment/Plan 1.??Onychodystrophy??(L60.3) Ordered: 27894 debridement nail any method 6/> (Charge), Quantity: 1, Onychodystrophy Pain in both feet Peripheral neuropathy 50829 office o/p new low 30-44 min (Charge), Quantity: 1, Onychodystrophy Pain in both feet Peripheral neuropathy ?? 2.??Pain in both feet??(M79.671) Ordered: 59694 debridement nail any method 6/> (Charge), Quantity: 1, Onychodystrophy Pain in both feet Peripheral neuropathy 32407 office o/p new low 30-44 min (Charge), Quantity: 1, Onychodystrophy Pain in both feet Peripheral neuropathy ?? 3.??Peripheral neuropathy??(G62.9) Ordered: 59706 debridement nail any method 6/> (Charge), Quantity: 1, Onychodystrophy Pain in both feet Peripheral neuropathy 47280 office o/p new low 30-44 min (Charge), Quantity: 1, Onychodystrophy Pain in both feet Peripheral neuropathy ?? A comprehensive??history and physical examination were preformed. The patient was educated on clinical and radiographic findings, diagnosis and treatment plans. Patient state that they understand allthat has been explained and all questions were answered to??their apparent satisfaction.? -Discussed guidelines for home preventative foot care and signs and symptoms to watch for. -Advised??patient on avoidance of barefoot walking and monitoring feet daily.? -Nails 1-5 bilateral??were trimmed in length and thickness to the satisfaction of the patient with a sterile nail nipper without incident -Recommended moisturizer guide dispensed to the patient today. Recommend urea cream. Pumice stone or emery board to the callused area.?? -Continue crest pads. ?? -Instructed patient to contact our office if any foot problems develop before next visit. Follow up 9-10 weeks for nail trimming ?? Time:?? This appointment lasted 30 minutes.?? Problem List/Past Medical History Historical Procedure/Surgical History ???Biopsy of vulva (09/14/2016)???Anterior colporrhaphy (09/14/2016)???Bilateral oophorectomy (09/14/2016)???Vaginal hysterectomy (09/14/2016) Medications Home aspirin(aspirin 81 mg oral tablet), 81 mg= 1 tab(s), Oral, daily bifidobacterium-lactobacillus(Probiotic Formula oral capsule), 1 cap(s), Oral, daily bumetanide(bumetanide 1 mg oral tablet), 1 mg= 1 tab(s), Oral, daily cholecalciferol(Vitamin D3 2000 intl units oral capsule), 2000 International Unit= 1 cap(s), Oral, daily cinnamon, 1000 mg, Oral, bid dilTIAZem(dilTIAZem 300 mg/24 hours oral capsule, extended release), 300 mg= 1 cap(s), Oral, daily insulin glargine(Lantus), Subcutaneous insulin lispro(HumaLOG), Subcutaneous lisinopril(lisinopril 20 mg oral tablet), 20 mg= 1 tab(s), Oral, daily metFORMIN(metFORMIN 500 mg oral tablet), 500 mg= 1 tab(s), Oral, bid multivitamin with minerals(Emergen-C) omega-3 polyunsaturated fatty acids([place]-3 oral capsule) pravastatin(pravastatin 10 mg oral tablet), 10 mg= 1 tab(s), Oral, daily spironolactone(spironolactone 25 mg oral tablet), 0.5, Oral, daily ubiquinone(CoQ10), 300 mg, Oral, daily Allergies Flagyl??hives statins sulfa drug??hives Social History Smoking Status Never smoker Alcohol - Current Use:Current Type (per serving):Wine (5 oz) Frequency:1-2 times per month Employment/School Status:Retired Exercise Times per week:1-2 times/week Exercise type:Walking Substance Abuse - Denies Substance Abuse Tobacco - Denies Tobacco Use Use:Lived with a smoker for 23 years Family History Diabetes mellitus - adult onset: Mother. Health Status Family Member(s) Electronically Signed on 11/20/2022 01:05 PM Vera Low DPM Family History Name: UnknownRelationship: Mother Condition State Severity Life Cycle Status Age at Onset Diabetes mellitus - adult onset POSITIVE
--- OUTSIDE RECORDS SUMMARY | 2023-02-02 12:33 | XMS_ITS | Continuity of Care Document ---
Author Name Unknown Organization [facility] Address [place] [address], [address] [place] [address]- Encounter 01/21/23 - 01/23/23 [facility] [address] [place] [id number]- Encounter Diagnosis Onychodystrophy(Discharge Diagnosis) - 01/24/23 Hammertoe(Discharge Diagnosis) - 01/21/23 Pain in both feet(Discharge Diagnosis) - 01/24/23 Peripheral neuropathy(Discharge Diagnosis) - 01/24/23 Attending Physician: Vera Low DPM Allergies, Adverse Reactions, Alerts Substance Reaction Severity Status sulfa drug hives Active Flagyl hives Active statins Active Assessment and Plan Extracted from: Title:Office Visit Note Author:Maranda TY, Navid Hercules Date:01/21/23 1.??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 2.??Hammertoe??(M20.40) Ordered: 15001 debridement nail any method 6/> (Charge), Quantity: 1, Onychodystrophy [place] Pain in both feet Peripheral neuropathy 45933 office o/p est low 20-29 min (Charge), Quantity: 1, Onychodystrophy [place] Pain in both feet Peripheral neuropathy ?? 3.??Pain in both feet??(M79.671) Ordered: 91911 debridement nail any method 6/> (Charge), Quantity: 1, Onychodystrophy [place] Pain in both feet Peripheral neuropathy 17096 office o/p est low 20-29 min (Charge), Quantity: 1, Onychodystrophy [place] Pain in both feet Peripheral neuropathy ?? 4.??Peripheral neuropathy??(G62.9) Ordered: 10632 debridement nail any method 6/> (Charge), Quantity: 1, Onychodystrophy [place] Pain in both feet Peripheral neuropathy 85091 office o/p est low 20-29 min (Charge), Quantity: 1, Onychodystrophy [place] Pain in both feet Peripheral neuropathy ?? A problem focused history and physical examination were preformed. The patient [...] with a sterile nail nipper without incident -Continue crest pads. Crest pads dispensed today. ?? -Instructed patient to contact our office [...] Type: Maintenance Start Date: 08/18/16 Status: Ordered [place]-3 oral capsule 0 Refill(s), Type: Maintenance Start [...] Start Date: 08/18/16 Status: Ordered Problem List Condition Confirmation Course Effective Dates Status H ealth Status Informant Onychodystrophy Confirmed Active Hammertoe Confirmed Active Peripheral neuropathy Confirmed Active Diagnosis Diagnosis Type Effective Dates Health Status Clinical Service Informant Hammertoe Discharge Diagnosis 01/21/23 Non-Specified Peripheral neuropathy Discharge Diagnosis 01/24/23 Onychodystrophy Discharge Diagnosis 01/24/23 Pain in both feet Discharge Diagnosis 01/24/23 Procedures Procedure Date Related Diagnosis Body Site Status Debridement of nail(s) by an y method(s); 6 or more 01/21/23 Completed Anterior colporrhaphy 09/14/16 Com pleted Bilateral oophorectomy 09/14/16 Co mpleted Biopsy of vulva 09/14/16 Completed Vaginal hysterectomy 09/14/16 Comp leted Vital Signs Most recent to oldest [Reference Range]: 1 Allergies Verified? Yes (01/21/23 11:05 AM) Medication History Verified? Yes (01/21/23 11:05 AM) Social History Social History Type Response Tobacco Lived with a smoker for 23 years Smoking Status Never smoker Sex Female Podiatry Note * Vera Low DPM: PERFORM Event Display: Podiatry Note Authored Date: [id number] LORNE EMERY Address: [address] [place] [address] Sex:Female :1935 Location:[facility] Date of Service:01/21/2023 Chief Complaint Footcare History of Present Illness This is a??87 [...] bilateral. Protective sensation??diminished??at all pedal sites via [place] Fabiola 5.07 monofilament bilateral. ?? Vibratory sensation:??absent [...] muscle strength Dorsiflexion, Plantarflexion, Inversion, Eversion B/L Lesser digital contractures noted right >??left.?? Semiflexible on the right, fully flexible on the left 1st MPJ ROM:??decreased??without pain or crepitus bilateral. Midtarsal and Subtalar joint??ROM:??decreased without pain or crepitus bilateral. ?? Ankle joint ROM is decreased??in dorsiflexion B/L. Contracted digits noted to bilateral feet. Patient uses crest pad to help with this. 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 2.??Hammertoe??(M20.40) Ordered: 18291 debridement nail any method 6/> (Charge), Quantity: 1, Onychodystrophy [place] Pain in both feet Peripheral neuropathy 89116 office o/p est low 20-29 min (Charge), Quantity: 1, Onychodystrophy [place] Pain in both feet Peripheral neuropathy ?? 3.??Pain in both feet??(M79.671) Ordered: 92710 debridement nail any method 6/> (Charge), Quantity: 1, Onychodystrophy [place] Pain in both feet Peripheral neuropathy 29073 office o/p est low 20-29 min (Charge), Quantity: 1, Onychodystrophy [place] Pain in both feet Peripheral neuropathy ?? 4.??Peripheral neuropathy??(G62.9) Ordered: 15903 debridement nail any method 6/> (Charge), Quantity: 1, Onychodystrophy [place] Pain in both feet Peripheral neuropathy 63192 office o/p est low 20-29 min (Charge), Quantity: 1, Onychodystrophy [place] Pain in both feet Peripheral neuropathy ?? A problem focused history and physical examination were preformed. The patient [...] with a sterile nail nipper without incident -Continue crest pads. Crest pads dispensed today. ?? -Instructed patient to contact our office if any foot problems develop before next visit. Follow up 9-10 weeks for nail trimming ?? Time:?? This appointment lasted 30 minutes.?? Problem List/Past Medical History Ongoing Hammertoe Onychodystrophy Peripheral neuropathy Historical Procedure/Surgical History ???Biopsy of vulva (09/14/2016)???Anterior colporrhaphy (09/14/2016)???Bilateral oophorectomy (09/14/2016)???Vaginal hysterectomy (09/14/2016) Medications aspirin(aspirin 81 mg oral tablet), 81 mg= [...] bid multivitamin with minerals(Emergen-C) omega-3 polyunsaturated fatty acids([place]-3 oral capsule) pravastatin(pravastatin 10 mg oral tablet), 10 mg= 1 tab(s), Oral, daily spironolactone(spironolactone 25 mg oral tablet), 0.5, Oral, daily ubiquinone(CoQ10), 300 mg, Oral, daily Allergies Flagyl??hives statins sulfa drug??hives Social History Smoking Status Never smoker Alcohol - Current Use:Current Type (per serving):Wine (5 oz) Frequency:1-2 times per month Employment/School Status:Retired Physical Activity Times per week:1-2 times/week Exercise type:Walking Substance Abuse - Denies Substance Abuse Tobacco - Denies Tobacco Use Use:Lived with a smoker for 23 years Family History Diabetes mellitus - adult onset: Mother. Health Status Family Member(s) Lab Results No Results Qualified Electronically Signed on 01/24/2023 06:41 PM Vera Quiros DPM Family History Name: UnknownRelationship: Mother Condition State Severity Life Cycle Status Age at Onset Diabetes mellitus - adult onset POSITIVE
--- OUTSIDE RECORDS SUMMARY | 2023-02-02 12:33 | XMS_ITS | Continuity of Care Document ---
Author Name Unknown Organization [facility] Address [address] [place] [address] Phone Care Team Providers Care Corporate Auditor Name Role Phone Bonnie Mercer Unavailable Unavaila ble Allergies, Adverse Reactions, Alerts Substance Reaction Status Criticality metronidazole hives Active No Information Iodinated Contrast Media Unknown Active No Information Sulfa (Sulfonamide Antibiotics) hives Active No Information Medications Medication Instructions Dosage Effective Dates (start - stop) Status Comments HUMALOG (unknown strength) Not Available - Active BUMETANIDE (unknown strength) Not Available - Active LOSARTAN POTASSIUM (unknown strength) Not Available - Active UBIQUINOL (unknown strength) Not Available - Active VITAMIN D3 (unknown strength) Not Available - Active B COMPLEX (unknown strength) Not Available - Active METFORMIN HCL (unknown strength) Not Available - Active DILTIAZEM 12HR ER (unknown strength) Not Available - Active PROBIOTIC (unknown strength) Not Available - Active TYLENOL 8 HOUR (unknown strength) Not Available - Active EMERGEN-C (unknown strength) Not Available - Active MIRALAX (unknown strength) Not Available - Active PRAVASTATIN SODIUM (unknown strength) Not Available - Active LANTUS (unknown strength) Not Available - Active MAGNESIUM CITRATE (unknown strength) Not Available - Active OMEGA-3 (unknown strength) Not Available - Active SYSTANE (unknown strength) Not Available - Active Procedures Procedure Date Office/Outpatient Visit,[facility] 2021 Advance Directives Directive Yes / No Effective Date File Name No Information Encounters Encounter Description Practice Location Reason(s) For Visit Diagnoses Date Provider Providers Copied on Encounter Office/Outpat ient Visit,, [facility], [address], [place], [id number], [place] tel:[phone] [facility] Spinal stenosis, lumbar region with neurogenic claudication Liang Nicole. [facility], [address], [place], [address], [place]. tel:[phone] Referring Provider: Noah Bolton, [facility] [address] , [place], [address]. tel:[phone] Family History Family Member Type Diagnosis Age At Onset No Information Payers Payer name Insurance type Covered green party ID Authorjania tesfaye(s) Medicare MB [id number] [facility] [id number] [facility] [id number] Social History Type Description Quantity Date Captured Comments Alcohol Use Details Unknown Caffeine Use Details Unknown Tobacco Use Status Current non-smoker Smoking Status Never smoker Non-Smoking Tobacco Use Details : No Details Available : No Details Available Sex Female Vital Signs Date / Time: Height Weight BMI Pulse Rate Blood Pressure Temperature Respiratory Rate Body Surface Area Head Circumference Head Circ. Percentile Wt./Ryan. Percentile BMI percentile Pulse Ox Inhaled Ox 12:59 PM 71.00 in 89.358 kg (197.00 lbs) 27.4 8 kg/m eter (2) Chief Complaint And Reason For Visit No Information Reason For Referral Reason For Referral No Information History Of Present Illness Encounter Date Complaint History Of Prese nt Illness No Information Functional Status Date Functional Assessmen t No Information Instructions Date Instruction Additional Infor mation No Information Assessments Type Assessment Date assessment Spinal stenosis, lumbar region w ith neurogenic claudication Patient Care Teams Name Effective Dates (start - stop) Status Members No Information
== END 2023-02-02 12:31 | disposition home or self-care (01) ==
LOC: INJ CL 12:31
PROVIDERS: Visit Provider Family Medicine
DX: M54.16 Radiculopathy, lumbar region (principal); M51.36 Other intervertebral disc degeneration, lumbar region
CPT/HCPCS: 64483; J1100; Q9966

== ENCOUNTER 2023-03-20 23:23 | Emergency (ER) | payer MEDICARE, BC, SELFPAY ==
[2023-03-20] VITALS (8 sets, daily range): BP systolic 184; BP diastolic 88; PULSE 81–89; RESP 20; TEMP 36.6; O2SAT 95–97; BMI 26.9
--- NOTE | 2023-03-20 23:33 | ED.CHESTPAIN ---
HPI - Chest Pain General Chief Complaint: Chest Pain Stated Complaint: chest pain Time Seen by Provider: 03/20/23 23:38 History of Present Illness HPI narrative: Patient is a a 87-year-old woman who had a nebulizer treatment tonight approximately an hour ago and developed substernal chest pain. She has no radiculopathy no nausea no vomiting no fevers no chills. She has chronic arthritis which she states interferes with her ability to localize pain. She states that the pain is now minimal. She is brought to the emergency room by her daughter. She describes no other symptoms otherwise states that other than her chronic arthritic pain she feels well. Related Data Home Medications Medication Instructions Recorded Confirmed albuterol sulfate 90 mcg/actuation inhalation 03/20/23 aerosol inhaler bumetanide 1 mg tablet 1 mg PO DAILY 03/20/23 03/20/23 diltiazem HCl 240 mg 240 mg PO DAILY 03/20/23 03/20/23 capsule,extended release 24 hr (Cartia XT) famotidine 20 mg tablet 20 mg PO DAILY 03/20/23 03/20/23 hydrocodone 5 mg-acetaminophen 325 1 tab PO 3XD PRN 03/20/23 03/20/23 mg tablet insulin lispro 100 unit/mL subcut 03/20/23 subcutaneous pen (Humalog KwikPen (U-100) Insulin) losartan 100 mg tablet 100 mg PO DAILY 03/20/23 03/20/23 losartan 25 mg tablet 50 mg PO BID 03/20/23 03/20/23 metformin 500 mg tablet,extended 500 mg PO DAILY 03/20/23 03/20/23 release 24 hr naloxegol 25 mg tablet (Movantik) 25 mg PO DAILY 03/20/23 03/20/23 pravastatin 10 mg tablet PO 03/20/23 prednisolone sodium phosphate 1 % drp ophthalmic (eye) 03/20/23 eye drops tizanidine 2 mg tablet 2 mg PO QPM 03/20/23 03/20/23 tramadol 50 mg tablet 50 mg PO QID PRN 03/20/23 03/20/23 triamcinolone acetonide 0.5 % topical DAILY 03/20/23 topical ointment Allergies Allergy/AdvReac Type Severity Reaction Status Date / Time Iodinated Contrast Media Allergy Verified 03/20/23 23:37 metronidazole [From Flagyl] Allergy Verified 03/20/23 23:37 simvastatin Allergy Verified 03/20/23 23:37 [id number] Reductase Allergy Verified 03/20/23 23:37 Inhibitor Sulfa (Sulfonamide Allergy Verified 03/20/23 23:37 Antibiotics) tramadol Allergy Verified 03/20/23 23:37 Review of Systems Status of ROS Reports: 10 or more systems reviewed and unremarkable except as noted in History and below PFSH PFSH Social History Non-prescribed substance use: denies use Exam Narrative Exam Narrative: EXAM GENERAL: Patient appears comfortable and well. EYES: No scleral icterus. LYMPH: No supraclavicular or cervical lymphadenopathy. SKIN: Visible skin seen during exam normal or with benign process only. EXT: No dependent lower extremity pedal edema. HEART: Regular rate and rhythm with no murmurs, rubs, or gallops. LUNGS: Clear to auscultation bilaterally with no crackles or wheezes. ABD: Soft, non tender, non distended. PSYCH: Good eye contact, speech is not pressured. Const Vital Signs, click to edit/add: Vital Signs - 24 hr 03/20/23 23:33 03/20/23 23:34 03/20/23 23:35 Temperature 98 F Pulse Rate 89 86 Pulse Rate [Pulse Oximeter] 88 Respiratory Rate 20 Blood Pressure 184/88 H Blood Pressure [Left Upper Arm] 184/88 H Pulse Oximetry 96 96 96 Oxygen Delivery Method Room Air 03/20/23 23:40 03/20/23 23:45 03/20/23 23:46 Temperature Pulse Rate 82 81 Pulse Rate [Pulse Oximeter] Respiratory Rate Blood Pressure Blood Pressure [Left Upper Arm] Pulse Oximetry 95 95 96 Oxygen Delivery Method 03/20/23 23:50 03/20/23 23:59 03/21/23 00:00 Temperature Pulse Rate Pulse Rate [Pulse Oximeter] Respiratory Rate Blood Pressure Blood Pressure [Left Upper Arm] Pulse Oximetry 97 95 94 Oxygen Delivery Method 03/21/23 00:04 03/21/23 00:04 03/21/23 00:04 Temperature Pulse Rate Pulse Rate [Pulse Oximeter] Respiratory Rate Blood Pressure Blood Pressure [Left Upper Arm] Pulse Oximetry 95 95 95 Oxygen Delivery Method 03/21/23 00:09 03/21/23 00:10 03/21/23 00:19 Temperature Pulse Rate Pulse Rate [Pulse Oximeter] Respiratory Rate Blood Pressure Blood Pressure [Left Upper Arm] 140/81 H Pulse Oximetry 96 96 93 Oxygen Delivery Method 03/21/23 00:20 Temperature Pulse Rate Pulse Rate [Pulse Oximeter] Respiratory Rate Blood Pressure Blood Pressure [Left Upper Arm] Pulse Oximetry 96 Oxygen Delivery Method Course Course ED Course: Patient seen examined. EKG upon my review shows no acute ST or T-wave changes. Chest x-ray troponin D-dimer CBC basic metabolic panel pending. Vital Signs Vital signs: Initial Vital Signs Temperature 98 F 03/20/23 23:33 Temperature Source Temporal Artery Scan 03/20/23 23:33 Pulse Rate 88 03/20/23 23:33 Respiratory Rate 20 03/20/23 23:33 Blood Pressure 184/88 H 03/20/23 23:33 Blood Pressure Mean 120 H 03/20/23 23:33 Blood Pressure Position Sitting 03/20/23 23:33 Pulse Oximetry 96 03/20/23 23:33 Oxygen Delivery Method Room Air 03/20/23 23:33 Vital Signs Temperature 98 F 03/20/23 23:33 Pulse Rate 88 03/20/23 23:33 Respiratory Rate 20 03/20/23 23:33 Blood Pressure 184/88 H 03/20/23 23:33 Pulse Oximetry 96 03/20/23 23:33 Oxygen Delivery Method Room Air 03/20/23 23:33 Temperature 98 F 03/20/23 23:33 Pulse Rate 81 03/20/23 23:46 Respiratory Rate 20 03/20/23 23:33 Blood Pressure 140/81 H 03/21/23 00:19 Pulse Oximetry 96 03/21/23 00:20 Oxygen Delivery Method Room Air 03/20/23 23:33 MDM - Chest Pain MDM Narrative Medical decision making narrative: Patient presents proximally an hour after developing chest pain at home. Patient related her pain to reflux or osteoarthritis. Her EKG showed no acute abnormalities but her troponin and D-dimer are both elevated. Patient is Whitney was threatening to leave against medical advice but we have convinced her to seek further care at [facility]. I have spoken with the transfer team at [facility] and have made their recommendations. Patient will be transferred for further evaluation and treatment. Medical Records Data Attestation: I reviewed the patient's medical records. Lab Data Labs: Lab Results 01/27/24 Range/Units 23:39 WBC 7.92 (4.50-11.00) K/uL RBC 4.65 (4.00-5.20) m/uL Hgb 14.0 (12.0-16.0) gm/dL Hct 41.9 (33.0-51.0) % MCV 90 (80-100) fL MCH 30 (26-34) pg MCHC 33 (32-36) gm/dL RDW Coeff of Abram 13.6 (11.5-15.5) % Plt Count 251 (140-440) K/uL Neut % (Auto) 59.6 (42.0-72.0) % Lymph % (Auto) 22.2 (20-44) % [place] % (Auto) 15.4 H (0.0-11.0) % Eos % (Auto) 1.9 (0.0-7.0) % Baso % (Auto) 0.8 (0.0-3.0) % Neut # (Auto) 4.72 (1.7-7.0) K/uL Lymph # (Auto) 1.76 (0.90-2.90) K/uL [place] # (Auto) 1.20 H (0.00-0.90) K/UL Eos # (Auto) 0.15 (0.00-0.50) K/uL Baso # (Auto) 0.06 (0.00-0.30) K/uL Abs Immat Gran (auto) 0.01 (0.00-0.30) K/uL Imm/Tot Granulo (auto) 0.1 % D-Dimer Quant (PE/DVT) 1.14 H (0.00-0.50) ug/ml Sodium 138 (135-149) mmol/L Potassium 3.8 (3.6-5.1) mmol/L Chloride 103 (96-114) mmol/L Carbon Dioxide 26 (20-32) mmol/L Anion Gap 9 (7-15) mEq/L BUN 29 (7-30) mg/dL Creatinine 1.1 (0.5-1.5) mg/dL Estimated Creat Clear 41.79 Estimated GFR 49 ml/min Glucose 270 H (60-115) mg/dL Calcium 8.8 (8.4-10.6) mg/dL Troponin I 0.51 H* (0.01-0.04) ng/mL Discharge Plan Discharge Clinical Impression: Non-ST elevated myocardial infarction (non-STEMI) Patient Disposition: Zeenat Pantoja Condition: Stable Instructions: Heart Attack (DC) Activity Level: Other Discharge Diet: Other Prescriptions: No Action tizanidine 2 mg tablet 2 mg PO QPM hydrocodone-acetaminophen 5-325 mg tablet 1 tab PO 3XD PRN diltiazem HCl [Cartia XT] 240 mg capsule,extended release 24hr 240 mg PO DAILY triamcinolone acetonide 0.5 % ointment topical DAILY tramadol 50 mg tablet 50 mg PO QID PRN famotidine 20 mg tablet 20 mg PO DAILY pravastatin 10 mg tablet PO prednisolone sodium phosphate 1 % drops ophthalmic (eye) losartan 25 mg tablet 50 mg PO BID bumetanide 1 mg tablet 1 mg PO DAILY albuterol sulfate 90 mcg/actuation HFA aerosol inhaler inhalation losartan 100 mg tablet 100 mg PO DAILY metformin 500 mg tablet extended release 24 hr 500 mg PO DAILY insulin lispro [Humalog KwikPen Insulin] 100 unit/mL insulin pen subcut Movantik 25 mg tablet 25 mg PO DAILY Follow Up/Referrals: Provider,Not a Local [Primary Care Provider] - Stand Alone Forms: [employer] Info Instructions
--- NOTE | 2023-03-20 23:38 | CRLHL7_ITS ---
For Patients: As a result of the Century Cures Act, medical imaging exams and procedure reports are released immediately into your electronic medical record. You may view this report before your referring provider. If you have questions, please contact your health care provider. INDICATION: Cough and chest pain. TECHNIQUE: Chest 1 views. COMPARISON: None. FINDINGS: Cardiovasculature and mediastinum: Heart size and vasculature are normal in caliber and appearance. Lungs and pleural spaces: Lungs are clear. No sign of infiltrate or mass. No sign of pleural effusion. No pneumothorax. Bones and soft tissues: No significant findings. IMPRESSION: No acute or significant findings. Dictated by Aníbal Fowler MD @ 03/21/2023 12:03:57 AM (Electronically Signed)
[2023-03-20 23:46] LABS: Basophils Absolute Auto 0.06 K/uL (0.00-0.30); Basophils Percent Auto 0.8 % (0.0-3.0); Eosinophils Absolute Auto 0.15 K/uL (0.00-0.50); Eosinophils Percent Auto 1.9 % (0.0-7.0); Hematocrit 41.9 % (33.0-51.0); Immature Granulocytes Abs Auto 0.01 K/uL (0.00-0.30); Immature Granulocytes Pct Auto 0.1 %; Lymphocytes Absolute Auto 1.76 K/uL (0.90-2.90); Lymphocytes Percent Auto 22.2 % (20-44); Mean Corpuscular HGB Conc 33 gm/dL (32-36); Mean Corpuscular Hemoglobin 30 pg (26-34); Mean Corpuscular Volume 90 fL (80-100); Monocytes Percent Auto 15.4 % (0.0-11.0); Neutrophils Absolute Auto 4.72 K/uL (1.7-7.0); Neutrophils Percent Auto 59.6 % (42.0-72.0); Platelet Count* 251 K/uL (140-440); RDW Coefficient of Variation % 13.6 % (11.5-15.5); Red Blood Count 4.65 m/uL (4.00-5.20); White Blood Count* 7.92 K/uL (4.50-11.00)
[2023-03-20 23:50] LABS: Slide Review Reflex No
[2023-03-20 23:58] LABS: Chloride* 103 mmol/L (96-114)
[2023-03-20 23:59] LABS: Potassium* 3.8 mmol/L (3.6-5.1); Sodium* 138 mmol/L (135-149)
[2023-03-21] VITALS (9 sets, daily range): BP systolic 140–165; BP diastolic 81–106; PULSE 72–84; RESP 20; O2SAT 93–96
[2023-03-21 00:01] LABS: Creatinine* 1.1 mg/dL (0.5-1.5); Est. Creatinine Clearance* 41.79; Estimated Glomerular Filt Rate 49 ml/min
[2023-03-21 00:02] LABS: Anion Gap 9 mEq/L (7-15); Blood Urea Nitrogen* 29 mg/dL (7-30); Calcium* 8.8 mg/dL (8.4-10.6); Carbon Dioxide* 26 mmol/L (20-32); Glucose* 270 mg/dL (60-115)
[2023-03-21 00:04] LABS: D Dimer Quantitative* 1.14 ug/ml (0.00-0.50)
[2023-03-21 00:16] LABS: Troponin I* 0.51 ng/mL (0.01-0.04)
--- OUTSIDE RECORDS SUMMARY | 2023-03-21 00:25 | XMS_ITS | Encounter Summary ---
Author Name Unknown Organization [facility] Address [address] [place] [address] Care Team Providers Care Clinical Medical Transcriptionist Name Role Phone Stephen Kuo MD Unavailable [phone] No Ref-Primary, Physician Primary Care Provider Berkley Reddy RD Unavailable [phone] Clinic - [facility] Unavaila ble Reason for Visit * Reason Onset Date Comments Appointment 05/08/2022 Encounter Details Date Type Department Care Team (Late st Contact Info) Description 05/08/2022 Telephone [facility] [address] [place] [address] Berkley Reddy, RD [address] [place], [place] [id number] Appointment Social History Tobacco Use Types Packs/Day Years Used Date Smoking Tobacco: Never Alcohol Use Standard Drinks/Week Comments Not Asked 0 (1 standard drink = 0.6 oz pur e alcohol) Sex and Gender Information Value Date Recorded Sex Assigned at Not on file Gender Identity Not on file Sexual Orientation Not on file documented as of this encounter Miscellaneous Notes * Telephone Encounter - Marybel Lobo - 05/18/2022 3:40 PM CDT Called PT and scheduled an appt for 05/27/2022 * Telephone Encounter - Diana Bradley - 05/11/2022 4:03 PM CDT Attempt #1 to call pt back to assist in scheduling appt.. Phone line has busy signal. * Telephone Encounter - Berkley Reddy RD - 05/11/2022 3:58 PM CDT Will you please call and schedule for me. Thank you! Bindu Reddy * Telephone Encounter - Nelly Soto - 05/08/2022 2:42 PM CDT Pt calling because her dr from [facility] had sent over a referral for her to meet with berkley reddy, the product support consultant. Please call pt back so she can set up an appointment. documented in this encounter Plan of Treatment Not on file documented as of this encounter Visit Diagnoses Not on filedocumented in this encounter Care Teams Clinical Medical Transcriptionist Relationship Specialty Start Date End Date No Ref-Primary, Physician PCP - General 05/27/22 Stephen Kuo MD Assigned PCP 04/20/21 03/17/[address] [place] [id number] Electric Meter Repairer Helper Dietitian, Registered 05/27/22 3 [facility] - [address] [address] Assigned PCP 03/18/23 documented as of this encounter
--- OUTSIDE RECORDS SUMMARY | 2023-03-21 00:25 | XMS_ITS | Encounter Summary ---
Author Name Unknown Organization [facility] Address [address] [place] [address] Care Team Providers Care Driver Service Technician Name Role Phone Stephen Kuo MD Unavailable [phone] No Ref-Primary, Physician Primary Care Provider Reny Reddy RD Unavailable [phone] Encounter Details Date Type Department Care Team (Latest Contact Info) Description 05/27/2022 Travel Social History Tobacco Use Types Packs/Day Years Used Date Smoking Tobacco: Never Alcohol Use Standard Drinks/Week Comments Not Asked 0 (1 standard drink = 0.6 oz pur e alcohol) Sex and Gender Information Value Date Recorded Sex Assigned at Not on file Gender Identity Not on file Sexual Orientation Not on file COVID-19 Exposure Response Date Recorded In the last 10 days, have yo u been in contact with someone who was confirmed or suspected to have Coronavirus/COVID-19? No / Unsure 05/27/2022 1:25 PM CDT documented as of this encounter Plan of Treatment Not on file documented as of this encounter Visit Diagnoses Not on filedocumented in this encounter Care Teams Driver Service Technician Relationship Specialty Start Date End Date No Ref-Primary, Physician PCP - General 05/27/22 Stephen Kuo MD Assigned PCP 04/20/21 03/17/[address] [place] [address] Monomer Recovery Operator Dietitian, Registered 05/27/22 3 documented as of this encounter
--- OUTSIDE RECORDS SUMMARY | 2023-03-21 00:25 | XMS_ITS ---
Author Name Unknown Organization [facility] Address [address] [place] [address] Care Team Providers Care Sole Tacker Name Role Phone No Ref-Primary, Physician Primary Care Provider Clinic - [facility] Unavaila ble Diabetes Self-Management Education Status:Closed (Closed) Start date:05/27/2022 Enrollment date:05/27/2022 End date:05/29/2022 Continued Care and Services Coordination
--- OUTSIDE RECORDS SUMMARY | 2023-03-21 00:25 | XMS_ITS | Continuity of Care Document ---
Author Name Unknown Organization [facility] Address [address] [place] [address] Phone Care Team Providers Care Sculpture Instructor Name Role Phone Bonnie Mercer Unavailable Unavaila ble Allergies, Adverse Reactions, Alerts Substance Reaction Status Criticality metronidazole hives Active No Information Iodinated Contrast Media Unknown Active No Information Sulfa (Sulfonamide Antibiotics) hives Active No Information Medications Medication Instructions Dosage Effective Dates (start - stop) Status Comments SYSTANE (unknown strength) Not Available - Active OMEGA-3 (unknown strength) Not Available - Active MAGNESIUM CITRATE (unknown strength) Not Available - Active LANTUS (unknown strength) Not Available - Active PRAVASTATIN SODIUM (unknown strength) Not Available - Active MIRALAX (unknown strength) Not Available - Active EMERGEN-C (unknown strength) Not Available - Active TYLENOL 8 HOUR (unknown strength) Not Available - Active PROBIOTIC (unknown strength) Not Available - Active DILTIAZEM 12HR ER (unknown strength) Not Available - Active METFORMIN HCL (unknown strength) Not Available - Active B COMPLEX (unknown strength) Not Available - Active VITAMIN D3 (unknown strength) Not Available - Active UBIQUINOL (unknown strength) Not Available - Active LOSARTAN POTASSIUM (unknown strength) Not Available - Active BUMETANIDE (unknown strength) Not Available - Active HUMALOG (unknown strength) Not Available - Active Procedures Procedure Date Office/Outpatient Visit,[facility] Du 2021 Advance Directives Directive Yes / No Effective Date File Name No Information Encounters Encounter Description Practice Location Reason(s) For Visit Diagnoses Date Provider Providers Copied on Encounter Office/Outpat ient Visit,, [facility], [address], [place], [id number], [place] tel:[phone] [facility] Spinal stenosis, lumbar region with neurogenic claudication Liang Nicole. [facility], [address], [place], [address], [place]. tel:[phone] Referring Provider: Noah Bolton, [facility] [address] , [place], [address]. tel:[phone] Family History Family Member Type Diagnosis Age At Onset No Information Payers Payer name Insurance type Covered democrat ID Authorjania tesfaye(s) Medicare MB [id number] [facility] [id number] [facility] [id number] Social History Type Description Quantity Date Captured [...] Plan Of Treatment Date Type Action Status Appointment Iesha Mackay BOOKED History Of Present [...]
--- OUTSIDE RECORDS SUMMARY | 2023-03-21 00:25 | XMS_ITS | Referral Summary ---
Author Name Unknown Organization [facility] Address [address] [place] [address] Care Team Providers Care Logging Equipment Mechanic Name Role Phone No Ref-Primary, Physician Primary Care Provider [facility] Unavaila ble Allergies Active Allergy Reactions Criticality Noted Date Comments Metronidazole Hives 08/29/2014 Sulfa Antibiotics Hives 08/29/2014 Medications Medication Sig Dispensed Refills Start Date End Date Status metFORMIN (GLUCOPHAGE) 1000 MG tablet [METFORMIN (GLUCOPHAGE) 1000 MG TABLET] Take 1,000 mg by mouth 2 (two) times a day with meals. 0 08/01/2014 Active metoprolol (LOPRESSOR) 50 MG tablet [METOPROLOL (LOPRESSOR) 50 MG TABLET] Take 25 mg by mouth 2 (two) times a day. 0 08/01/2014 Active bumetanide (BUMEX) 1 MG tablet [BUMETANIDE (BUMEX) 1 MG TABLET] Take 1 mg by mouth daily. 0 08/01/2014 Active lisinopril (PRINIVIL,ZESTRIL) 40 MG tablet [LISINOPRIL (PRINIVIL,ZESTRIL) 40 MG TABLET] Take 40 mg by mouth daily. 0 08/01/2014 Active pravastatin (PRAVACHOL) 10 MG tablet [PRAVASTATIN (PRAVACHOL) 10 MG TABLET] Take 10 mg by mouth bedtime. 0 08/01/2014 Active rivaroxaban 15 mg Tab [RIVAROXABAN 15 MG TAB] Take 15 mg by mouth daily with supper. 0 08/01/2014 Active FIBER, PSYLLIUM HUSK, ORAL [FIBER, PSYLLIUM HUSK, ORAL] Take by mouth daily. 0 08/01/2014 Active VIT C/E/ZN/COPPR/LUTEIN/Z EAXAN (PRESERVISION AREDS 2 ORAL) [VIT C/E/ZN/COPPR/LUTEIN /ZEAXAN (PRESERVISION AREDS 2 ORAL)] Take 1 tablet by mouth daily. 0 08/01/2014 Active zinc gluconate 50 mg tablet [ZINC GLUCONATE 50 MG TABLET] Take 50 mg by mouth daily. 0 08/01/2014 Active cinnamon bark 500 mg capsule [CINNAMON BARK 500 MG CAPSULE] Take 500 mg by mouth daily. 0 08/01/2014 Active coenzyme Q10 (CO Q-10) 100 mg capsule [COENZYME Q10 (CO Q-10) 100 MG CAPSULE] Take 100 mg by mouth daily. 0 08/01/2014 Active CALCIUM CARBONATE/VITAMIN D3 (CALCIUM 600 + D,3, ORAL) [CALCIUM CARBONATE/VITAMIN D3 (CALCIUM 600 + D,3, ORAL)] Take 1 tablet by mouth. Wednesday, Wednesday, Wednesday 0 08/01/2014 Active MEDICATION CANNOT BE REORDERED - PLEASE MANUALLY REORDER AND DISCONTINUE THE OLD ORDER [KRILL/OM3/DHA/EPA/ OM6/LIP/ASTX (KRILL OIL, OMEGA 3 & 6, ORAL)] Take 1 capsule by mouth daily. 0 08/01/2014 Active acetaminophen 500 mg coapsule [ACETAMINOPHEN 500 MG COAPSULE] Take 1 capsule by mouth as needed for fever. 0 08/01/2014 Active ibuprofen (ADVIL,MOTRIN) 200 MG tablet [IBUPROFEN (ADVIL,MOTRIN) 200 MG TABLET] Take 400 mg by mouth every 8 (eight) hours as needed for pain. 0 08/29/2014 Active VIT A,C,E/UBIDEC/ANTIOX VIT #6 (VIT A, C, [id number] VIT 6 ORAL) [VIT A,C,E/UBIDEC/ANTIOX VIT #6 (VIT A, C, [id number] VIT 6 ORAL)] Take 1 tablet by mouth daily. 0 08/01/2014 Active insulin glargine (LANTUS SOLOSTAR) 100 UNIT/ML pen INJECT 15 UNITS AT BEDTIME DAVID TWO patient WILL ONLY USE LANTUS 0 03/10/2021 Active insulin aspart (NOVOLOG FLEXPEN) 100 UNIT/ML pen 0 11/27/2021 Active metFORMIN (GLUCOPHAGE XR) 500 MG 24 hr tablet Take 500 mg by mouth 0 04/01/2021 Active Active Problems Problem Noted Date Diagnosed Date PVC (premature ventricular contraction) 08/02/19 15 Atrial tachycardia, paroxysmal 08/01/2014 HTN (hypertension) 08/01/2014 Social History Tobacco Use Types Packs/Day Years Used Date Smoking Tobacco: Never Alcohol Use Standard Drinks/Week Comments Not Asked 0 (1 standard drink = 0.6 oz pur e alcohol) Adolescent Education Answer Date Record ed Getting School Help Needed Not on file 11/14 Sex and Gender Information Value Date Recorded Sex Assigned at Not on file Gender Identity Not on file Sexual Orientation Not on file Last Filed Vital Signs Vital Sign Reading Time Taken Comments Blood Pressure 106/62 06/15/2017 8:34 AM CDT Pulse 64 06/15/2017 8:34 AM CDT Temperature 35.9 ??C (96.6 ??F) 06/15/2017 8:34 AM CD T Respiratory Rate - - Oxygen Saturation 97% 07/24/2014 1:47 PM CDT Inhaled Oxygen Concentration - - Weight 92.1 kg (203 lb) 05/27/2022 3:03 PM CDT Height 179.1 cm (5' 10.5) 05/27/2022 3:03 PM CD T Body Mass Index 28.72 05/27/2022 3:03 PM CDT Plan of Treatment Not on file Care Teams Logging Equipment Mechanic Relationship Specialty Start Date End Date No Ref-Primary, Physician PCP - General 05/27/22 Clinic - [address] [address] Assigned PCP 03/18/23
--- OUTSIDE RECORDS SUMMARY | 2023-03-21 00:25 | XMS_ITS | Continuity of Care Document ---
Author Name Unknown Organization [facility] Address [address] [place] [address] Phone Care Team Providers Care Molder Feeder Name Role Phone Eri Stubbs MD Unavailable Unavailable Allergies, Adverse Reactions, Alerts Substance Reaction Status Criticality metronidazole Unknown Active No Information Sulfa (Sulfonamide Antibiotics) Unknown Active No Information Medications Medication Instructions Dosage Effective Dates (start - stop) Status Comments tramadol 50 mg tablet take 1 tablet by o ral route every 6 hrs prn chronic pain - Active lidocaine 4 % topical patch as needed - Active tizanidine 2 mg capsule 1 tablet in the PM - Active Systane (propylene glycol) 0.4 %-0.3 % eye drops - Active diclofenac 1 % topical gel apply (2G) by topical route 2 times every day to the affected area(s) 2 G - Active Biofreeze (menthol) 10 % topical cream - Active magnesium citrate 125 mg capsule - Active Lantus U-100 Insulin 100 unit/mL subcutaneous solution inject by subcutaneous route as per insulin protocol 0.00 - Active Emergen-C 1,000 mg oral effervescent powder pack - Active Candicidal 100 mg-150 mg-50 mg-150 mg capsule - Active Probiotic 10 billion cell capsule - Active Cartia XT 240 mg capsule,extended release take 1 capsule by oral route every day 240 MG - Active cranberry 500 mg capsule - Active Cinnamon 500 mg capsule - Active vitamin B12 500 mcg-folic acid 400 mcg tablet - Active Vitamin D3 50 mcg (2,000 unit) capsule - Active QH-absorb Plus PQQ 100 mg-10 mg capsule - Active Galzin 50 mg (zinc) capsule take 1 capsule by oral route 3 times every day on an empty stomach 50 MG - Active losartan 100 mg tablet take 1 tablet by oral route every day 100 MG - Active bumetanide 1 mg tablet take 1 tablet by oral route every day 1 MG - Active Procedures Procedure Date INJECT TRIGGER POINTS, =/> 3 OFFICE/OUTPATIENT VISIT, EST INJECT TRIGGER POINTS, =/> 3 OFFICE/OUTPATIENT VISIT, EST No Charge For Visit Per Prov OFFICE/OUTPATIENT VISIT, EST OFFICE/OUTPATIENT VISIT, NEW Advance Directives Directive Yes / No Effective Date File Name No Information Encounters Encounter Description Practice Location Reason(s) For Visit Diagnoses Date Provider Providers Copied on Encounter [facility], [address] [place] [address] Cintia [place], [id number] , [place] [phone] [facility] Myalgia, other site 4 Evelyne Hwang. [address] [place] [address] Joy [place], [id number] , [place]. [phone] Referring Provider: Eri Stubbs, [address] [place] [address] [place], [address] . tel:[phone] OFFICE/OUTPA TIENT VISIT, [facility], [address] [place] [address] [place], [id number] , [place] tel:[phone] [facility] bilateral shoulder pain (chief complaint) Chronic pain syndromePain in right shoulderPain in left kneeMyalgia, other siteLong term (current) use of opiate analgesicRadiculopath y 4 Evelyne Hwang. [address] [place], [place] [address], [id number] , [place]. tel:[phone] Referring Provider: Eri Stubbs, [address] [place] [address] [place], [address] . tel:[phone] OFFICE/OUTPA TIENT VISIT, [facility], [address] [place] [address] [place]ia [place], [id number] , [place] tel: [phone] [facility] bilateral shoulder pain (chief complaint) Chronic pain syndromePain in right shoulderPain in left kneeMyalgia, other site 3 Evelyne Hwang. [address] [place], [id number] , [place]. tel: [phone] Referring Provider: Eri Stubbs, [address] [place] [address] [place], [address] . tel:[phone] [facility], [address] [place] [address] [place], [id number] , [place] tel: [phone] [facility] bilateral shoulder pain (chief complaint) Chronic pain syndromeConstipationP ain in right shoulderLong term (current) use of opiate analgesic 3 Evelyne Hwang. [address] [place] [address] Joy [place], [id number] , [place]. tel: [phone] Referring Provider: Eri Stubbs, [address] [place] [address] [place], [address] . tel:[phone] OFFICE/OUTPA TIENT VISIT, [facility], [address] [place], [place] [address]C[place], [id number] , [place] tel: [phone] [facility] bilateral shoulder pain (chief complaint) Chronic pain syndromePain in right shoulderLong term (current) use of opiate analgesicConstipation Myalgia, other site 3 Evelyne Hwang. [address] [place] [address] Joy [place], [id number] , [place]. tel:[phone] Referring Provider: Eri Stubbs, [address] [place] [address] [place], [address] . tel:[phone] OFFICE/OUTPA TIENT VISIT, [facility], [address] [place] [address] [place], [id number] , [place] tel: [phone] [facility] bilateral shoulder pain (chief complaint) Spinal stenosis, lumbar region with neurogenic claudicationPain in right shoulderCervicalgiaCh ronic pain syndrome 3 Evelyne Eri. [address] [place], [id number] , [place]. [phone] Referring Provider: Oracio Jordan, [address] [place], [address] . tel:[phone] Family History Family Member Type Diagnosis Age At Onset No Information Payers Payer name Insurance type Covered alliance party ID Mario carlin(s) Medicare MB [id number] [facility] [id number] Social History Type Description Quantity Date Captured Comments Alcohol Use Details Unknown Caffeine Use Details Unknown Tobacco Use Status No Information Smoking Status No Information Sex Female Chief Complaint And Reason For Visit No Information Reason For Referral Reason For Referral No Information Plan Of Treatment Date Type Action Status Goal ALT (SGPT). Due on due Goal Review Allergy List. Due on due Goal Medication Reconciliation. D ue on due Goal Tobacco Use. Due on due Goal Weight. Due on d ue Goal Height. Due on d ue Goal PHQ-9. Due on du e Goal Unhealthy drug use screening . Due on due Goal COMPUTER SYSTEMS HARDWARE ANALYST Paperwork. Due on due Goal OARS. Due on due Goal Zoster vaccine (1st). Due on due Goal Update Social History. Due o n due Goal COLD ROLL INSPECTOR Scanned. Due on due Goal AST (SGOT). Due on due Goal Order Annual PT. Due on due Goal Creatinine. Due on due Goal UDT. Due on due Goal COMPUTER SYSTEMS HARDWARE ANALYST Paperwork. Due on due Goal AST (SGOT). Due on due Goal OARS. Due on due Goal ALT (SGPT). Due on due Goal Order Annual PT. Due on due Goal COLD ROLL INSPECTOR Scanned. Due on due Goal Creatinine. Due on due Goal UDT. Due on due Goal Unhealthy drug use screening . Due on due Goal Review Allergy List. Due on due Goal Zoster vaccine (1st). Due on due Goal Tobacco Use. Due on due Goal Medication Reconciliation. D ue on due Goal Height. Due on d ue Goal Update Social History. Due o n due Goal PHQ-9. Due on du e Goal Weight. Due on d ue Goal UDT. Due on due Goal Order Annual PT. Due on due Goal COMPUTER SYSTEMS HARDWARE ANALYST Paperwork. Due on due Goal AST (SGOT). [...] . Due on due Goal Zoster vaccine (). Due on due Goal OARS. Due on due Goal ALT (SGPT). Due on due Goal COLD ROLL INSPECTOR Scanned. Due on due Goal Height. Due on d ue Goal Review Allergy List. Due on due Goal Weight. Due on d ue Goal Unhealthy drug use screening . Due on due Goal Tobacco Use. Due on due Goal Zoster vaccine (1st). Due on due Goal PHQ-9. Due on du e Goal Medication Reconciliation. D ue on due Goal Update Social History. Due o n due Goal Creatinine. Due on due Goal ALT (SGPT). Due on due Goal AST (SGOT). Due on due Goal COLD ROLL INSPECTOR Scanned. Due on due Goal OARS. Due on due Goal UDT. Due on due Goal COMPUTER SYSTEMS HARDWARE ANALYST Paperwork. Due on due Goal Order Annual PT. Due on due Goal AST (SGOT). Due on due Goal ALT (SGPT). Due on due Goal Creatinine. Due on due Goal COLD ROLL INSPECTOR Scanned. Due on due Goal Order Annual PT. Due on due Goal OARS. Due on due Goal UDT. Due on due Goal COMPUTER SYSTEMS HARDWARE ANALYST Paperwork. Due on due Goal Medication Reconciliation. [...] use screening . Due on due Goal Tobacco Use. Due on due Goal Review Allergy List. Due on due Goal Medication Reconciliation. D ue on due Goal Zoster vaccine (1st). Due on due Goal Unhealthy drug use screening . Due on due Goal Height. Due on d ue Goal PHQ-9. Due on du e Goal Weight. Due on d ue Goal Update Social History. Due o n due Appointment Iesha Mackay BOOKED Appointment Iesha Mackay BOOKED History Of Present Illness Encounter Date Complaint History Of Prese nt Illness bilateral shoulder pain Duration : chronic. Severity level is 10. It occurs constantly and is worsening. Location: right shoulder and left lower leg. The pain is aching and sharp. The pain is aggravated by lifting, movement, walking, standing and twisting. The pain is relieved by rest and sitting. Comments: Ms Amos small presents for follow up; she is accompanied by her daughter, by phone. Today, reports pain in the left knee; she is s/p TKA in early 2018. Within the past year, she has started to develop pain, which has worsened. She returned to see ortho; imaging was obtained and the implant looks good. Also has pain in the posterior aspect of the bilateral thighs, and on the left, radiates to the anterior aspect of the lower leg and into the foot (difficult to localize). C/o dysesthesias in the left 2nd, 3rd and 4th toes that is uncomfortable enough to keep her awake. LE pain is characterized as aching. Average pain score is 7/10. Knee is characterized as tight.Left shoulder pain is minimally bothersome. The TPI we did for her right shoulder in mid-December nearly entirely took away her pain away until about a week ago. She would like to repeat them today. Pain is stable in location and quality -- lateral aspect of the right shoulder and into the lateral arm.She is interested in any other treatment options; her daughter inquires about a trial of Ultram. Comments: Ms Amos small presents for follow up; she is accompanied by her daughter by telephone, who participates in the discussion. She stopped the Valera as she was getting significant constipation, even [...] options. bilateral shoulder pain Duration : chronic. Severity level is 6. It occurs constantly and is fluctuating. Location: bilateral shoulder. The pain is aching and sharp. The pain is aggravated by lifting and movement. The pain is relieved by rest and stretching. bilateral shoulder pain Duration : chronic. Location: bilateral shoulder. Comments: Ms Amos small presents for follow up; she is accompanied by her daughter, who participates in the discussion. She has been using about 2 Valera per day, which has been effective. Has had SE of constipation, which has only partially responded to OTC stool softeners. Pain is in the bilateral shoulders, 5-7/10 in severity (though can be less severe in the morning/after rest). C/o weakness in the right shoulder. Has done two sessions of PT and several OT; has been doing her HEP. bilateral shoulder pain Duration : chronic. Severity level is 6. It occurs constantly and is fluctuating. Location: bilateral shoulder. The pain is aching and sharp. The pain is aggravated by lifting, movement, sitting, housework and prolonged positioning. The pain is relieved by physical therapy, changing positions, rest and medications. Comments: Ms Amos small was referred to [...] that will provide benefit with minimal SE. bilateral shoulder pain Severity level is 10. It occurs constantly and is stable. Location: bilateral shoulder. The pain radiates to the BL arms. The pain is aggravated by bending, lifting, movement, changing positions, housework and. The pain is relieved by rest and lying down. Functional Status Date Functional Assessmen t No Information Instructions Date Instruction Additional Infor dima No Information Assessments Type Assessment Date assessment Myalgia, other site Patient Care Teams Name Effective Dates (start - stop) Status Members No Information
--- OUTSIDE RECORDS SUMMARY | 2023-03-21 00:25 | XMS_ITS | Clinical Summary ---
Author Name Unknown Organization [place] Address [address] [place] [address] Care Team Providers Care Per Diem Name Role Phone No Ref-Primary, Physician Primary Care Provider [facility] Unavaila ble Allergies Active Allergy Reactions Criticality [...] VIT A,C,E/UBIDEC/ANTIOX VIT #6 (VIT A, C, [id number] VIT 6 ORAL) [VIT A,C,E/UBIDEC/ANTIOX VIT #6 (VIT A, C, [id number] VIT 6 ORAL)] Take 1 tablet by [...] 05/27/2022 3:03 PM CDT Plan of Treatment Health Maintenance Due Date Last Done Comments ADVANCE CARE PLANNING 1937 ANNUAL REVIEW OF HM ORDERS 1937 DIABETIC FOOT EXAM 1937 EYE EXAM 1937 MICROALBUMIN 1937 RSV VACCINE ( & 60+) (1 - 1-dose 60+ series) 1997 FALL RISK ASSESSMENT 2002 MEDICARE ANNUAL WELLNESS VISIT 2002 A1C 09/03/2017 06/04/2017, 11/22, 06/01/2016, Additional history exists BMP 12/01/2017 12/01/2016, 02/2016, 06/01/2016, Additional history exists LIPID 12/01/2017 12/01/2016, 04/2015, 06/06/2015, Additional history exists COVID-19 Vaccine () 10/23/2022 11/12/2021, 06/03/2021, 11/28/2020, Additional history exists INFLUENZA VACCINE (#1) 2022 2, 11/13/2020, 10/27/2019, Additional history exists PHQ-2 (once per calendar year) 2023 DTAP/TDAP/TD IMMUNIZATION (9 - Td or Tdap) 09/10/2031 09/09/2021, 02/23/2012, 08/17/2011, Additional history exists Pneumococcal Vaccine: 65+ Years Completed 01/12/2014, 02/22/2013, 06/13/2002, Additional history exists ZOSTER IMMUNIZATION Completed 12/27/2017, 12/11/2017, 10/08/2017, Additional history exists HPV IMMUNIZATION Aged Out No longer e ligible based on patient's age to complete this topic IPV IMMUNIZATION Aged Out No longer e ligible based on patient's age to complete this topic MENINGITIS IMMUNIZATION Aged Out No l onger eligible based on patient's age to complete this topic RSV MONOCLONAL ANTIBODY Aged Out No l onger eligible based on patient's age to complete this topic Care Teams Per Diem Relationship Specialty Start Date End Date No Ref-Primary, Physician PCP - General 05/27/22 Clinic - [address] [address] Assigned PCP 03/18/23
--- OUTSIDE RECORDS SUMMARY | 2023-03-21 00:25 | XMS_ITS | Encounter Summary ---
Author Name Unknown Organization [facility] Address [address] [place] [address] Care Team Providers Care Engine Setter Name Role Phone Stephen Kuo MD Unavailable [phone] No Ref-Primary, Physician Primary Care Provider Reny Reddy RD Unavailable [phone] Reason for Visit * Reason Comments Diabetes Education Type II Diabetes Encounter Details Date Type Department Care Team (Latest Contact Info) Description 05/27/2022 2:00 PM CDT Allied Health/Nurse Visit [address] [phone] [place] [address] Diabetes Education (Type II Diabetes) Social History Tobacco Use Types Packs/Day Years [...] PM CDT documented as of this encounter Last Filed Vital Signs Vital Sign Reading Time Taken Comments Blood Pressure - - Pulse - - Temperature - - Respiratory Rate - - Oxygen Saturation - - Inhaled Oxygen Concentration - - Weight 92.1 kg (203 lb) 05/27/2022 3:03 PM CDT Height 179.1 cm (5' 10.5) 05/27/2022 3:03 PM CD T Body Mass Index 28.72 05/27/2022 3:03 PM CDT documented in this encounter Progress Notes * Reny Reddy, NIMA - 05/27/2022 2:00 PM CDT Images from the original note were not included. Diabetes Self-Management Education & Support Presents for: Type 2 diabetes on insulin management Type of Service: In Person Visit Assessment Type: ASSESSMENT: Patient states that she feels very comfortable with current diabetes plan MDI insulin. Patient rarely monitors BG. Patient states she knows how she feels if her glucose level is high or low. Hemoglobin A1c extremely well controlled without hypoglycemia. Patient is not interested in a glucose sensorat this time. Patient's main questions are regarding nutrition recommendations for arthritis. Has been a number of years since diabetes education did review general education and prevention complications. Also discussed the importance of knowing glucose reading and treatment of hypoglycemia. Patient's most recent Hemoglobin A1c 6.2% 01/21/2022 Lab Results Component Value Date A1C 5.9 06/04/2017 is meeting goal of <7.0 Diabetes knowledge and skills assessment: Patient is knowledgeable in diabetes management concepts related to: Being Active, Monitoring, Taking Medication, Problem Solving, Reducing Risks and Healthy Coping Continue education with the following diabetes management concepts: Healthy Eating Based on learning assessment above, most appropriate setting for further diabetes education would be: Individual setting. PLAN Patient will follow anti-inflammatory food recommendations and numerous recipes provided Topics to cover at upcoming visits: Healthy Eating, Taking Medication and Reducing Risks Follow-up: Yearly See Care Plan for co-developed, patient-state behavior change goals. AVS provided for patient today. Education Materials Provided: Living Healthy with Diabetes and Anti-inflammatory nutrition therapy SUBJECTIVE/OBJECTIVE: Diabetes education in the past 24mo: No Diabetes type: Type 2 Disease course: Stable How confident are you filling out medical forms by yourself:: Extremely Cultural Influences/Ethnic Background: Not or Diabetes Symptoms & Complications: Fatigue: Sometimes Neuropathy: Sometimes Polydipsia: No Polyphagia: No Polyuria: Yes Visual change: Yes Slow healing wounds: No Autonomic neuropathy: No CVA: No Heart disease: No Nephropathy: No Peripheral neuropathy: Yes Peripheral Vascular Disease: Yes Retinopathy: Yes Sexual dysfunction: No Patient Problem List and Family Medical History reviewed for relevant medical history, current medical status, and diabetes risk factors. Vitals: Ht 1.791 m (5' 10.5) Wt 92.1 kg (203 lb) BMI 28.72 kg/m?? Estimated body mass index is 28.72 kg/m?? as calculated from the following: Height as of this encounter: 1.791 m (5' 10.5). Weight as of this encounter: 92.1 kg (203 lb). Last 3 BP: BP Readings from Last 3 Encounters: 06/15/17 106/62 12/08/16 93/62 08/05/16 116/64 History Smoking Status ??? Never Smokeless Tobacco ??? Not on file Labs: Lab Results Component Value Date A1C 5.9 06/04/2017 Lab Results Component Value Date GLC 138 06/04/2017 Lab Results Component Value Date LDL 144 06/04/2017 Direct Measure HDL Date Value Ref Range Status 06/04/2017 42 mg/dL Final ] No results found for: GFRESTIMATED No results found for: GFRESTBLACK Lab Results Component Value Date CR 1.57 06/04/2017 No results found for: MICROALBUMIN Healthy Eating: Cultural/scientology diet restrictions?: No Meal planning/habits: Avoiding sweets, Heart healthy, Low salt, Smaller portions How many times a week on average do you eat food made away from home (restaurant/take-out)?: 1 Meals include: Breakfast, Dinner, Evening Snack Beverages: Water, Tea, Milk Being Active: Days per week of moderate to strenuous exercise (like a brisk walk): (P) 7 On average, minutes per day of exercise at this level: (P) 20 How intense was your typical exercise? : (P) Light (like stretching or slow walking) Exercise Minutes per Week: (P) 140 Barrier to exercise: Physical limitation Monitoring: Blood Glucose Meter: Unknown Times checking blood sugar at home (number): Other Times checking blood sugar at home (per): Month Blood glucose trend: No change Taking Medications: Diabetes Medication(s) Biguanides metFORMIN (GLUCOPHAGE XR) 500 MG 24 hr tablet Take 500 mg by mouth metFORMIN (GLUCOPHAGE) 1000 MG tablet [METFORMIN (GLUCOPHAGE) 1000 MG TABLET] Take 1,000 mg by mouth 2 (two) times a day with meals. Insulin insulin aspart (NOVOLOG FLEXPEN) 100 UNIT/ML pen insulin glargine (LANTUS SOLOSTAR) 100 UNIT/ML pen INJECT 15 UNITS AT BEDTIME DAVID TWO patient WILL ONLY USE LANTUS Current Treatments: Diet, Insulin Injections Problem Solving: Reducing Risks: CAD Risks: Diabetes Mellitus, Dyslipidemia, Family history, Hypertension, Post- menopausal, Sedentary lifestyle, Stress Sees dentist every 6 months?: Yes Feet checked by healthcare provider in the last year?: Yes Healthy Coping: Informal Support system:: Children, Brittaney based, Family, Friends, Neighbors, Spouse Patient Activation Measure Survey Score: View : No data to display. Care Plan and Education Provided: Care Plan: Diabetes Updates made by Reny Reddy RD since 05/29/2022 12:00 AM Problem: HbA1C Not In Goal Goal: Establish Regular Follow-Ups with PCP Task: Discuss with PCP the recommended timing for patient's next follow up visit(s) Responsible User: Reny Reddy RD Task: Discuss schedule for PCP visits with patient Completed 05/29/2022 Responsible User: Reny Reddy RD Goal: Get HbA1C Level in Goal Task: Educate patient on diabetes education self-management topics Completed 05/29/2022 Responsible User: Reny Reddy RD Task: Educate patient on benefits of regular glucose monitoring Responsible User: Reny Reddy RD Task: Refer patient to appropriate extended care molybdenum steamer operator, as needed (Medication Therapy Management, Behavioral Health, Physical Therapy, etc.) Responsible User: Reny Reddy RD Task: Discuss diabetes treatment plan with patient Responsible User: Reny Reddy RD Problem: Diabetes Self-Management Education Needed to Optimize Self-Care Behaviors Goal: Understand diabetes pathophysiology and disease progression Task: Provide education on diabetes pathophysiology and disease progression specfic to patient's diabetes type Responsible User: Reny Reddy RD Goal: Healthy Eating - follow a healthy eating pattern for diabetes Task: Provide education on portion control and consistency in amount, composition and timing of food intake Responsible User: Reny Reddy RD Task: Provide education on managing carbohydrate intake (carbohydrate counting, plate planning method, etc.) Responsible User: Reny Reddy RD Task: Provide education on weight management Responsible User: Reny Reddy RD Task: Provide education on heart healthy eating Responsible User: Reny Reddy RD Task: Provide education on eating out Responsible User: Reny Reddy RD Task: Develop individualized healthy eating plan with patient Completed 05/29/2022 Responsible User: Reny Reddy RD Goal: Being Active - get regular physical activity, working up to at least 150 minutes per week Task: Provide education on relationship of activity to glucose and precautions to take if at risk for low glucose Completed 05/29/2022 Responsible User: Reny Reddy RD Task: Discuss barriers to physical activity with patient Responsible User: Reny Reddy RD Task: Develop physical activity plan with patient Responsible User: Reny Reddy RD Task: Explore community resources including walking groups, assistance programs, and home videos Responsible User: Reny Reddy RD Goal: Monitoring - monitor glucose and ketones as directed Task: Provide education on blood glucose monitoring (purpose, proper technique, frequency, glucose targets, interpreting results, when to use glucose control solution, sharps disposal) Completed 05/29/2022 Responsible User: Reny Reddy RD Task: Provide education on continuous glucose monitoring (sensor placement, use of ada or compliance engineer products/reader, understanding glucose trends, alerts and alarms, differences between sensor glucose and blood glucose) Responsible User: Reny Reddy RD Task: Provide education on ketone monitoring (when to monitor, frequency, etc.) Responsible User: Reny Reddy RD Goal: Taking Medication - patient is consistently taking medications as directed This Visit's Progress: 100% Note: Patient will take insulin as directed Task: Provide education on action of prescribed medication, including when to take and possible side effects Completed 05/29/2022 Responsible User: Reny Reddy RD Task: Provide education on insulin and injectable diabetes medications, including administration, storage, site selection and rotation for injection sites Responsible User: Reny Reddy RD Task: Discuss barriers to medication adherence with patient and provide management technique ideas as appropriate Responsible User: Reny Reddy RD Task: Provide education on frequency and refill details of medications Responsible User: Reny Reddy RD Goal: Problem Solving - know how to prevent and manage short-term diabetes complications Task: Provide education on high blood glucose - causes, signs/symptoms, prevention and treatment Responsible User: Reny Reddy RD Task: Provide education on low blood glucose - causes, signs/symptoms, prevention, treatment, carrying a carbohydrate source at all times, and medical identification Completed 05/29/2022 Responsible User: Reny Reddy RD Task: Provide education on safe travel with diabetes Responsible User: Reny Reddy RD Task: Provide education on how to care for diabetes on sick days Responsible User: Reny Reddy RD Task: Provide education on when to call a health care provider Responsible User: Reny Reddy RD Goal: Reducing Risks - know how to prevent and treat long-term diabetes complications Task: Provide education on major complications of diabetes, prevention, early diagnostic measures and treatment of complications Responsible User: Reny Reddy RD Task: Provide education on recommended care for dental, eye and foot health Completed 05/29/2022 Responsible User: Reny Reddy RD Task: Provide education on Hemoglobin A1c - goals and relationship to blood glucose levels Completed 05/29/2022 Responsible User: Reny Reddy RD Task: Provide education on recommendations for heart health - lipid levels and goals, blood pressure and goals, and aspirin therapy, if indicated Responsible User: Reny Reddy RD Task: Provide education on tobacco cessation Responsible User: Reny Reddy RD Goal: Healthy Coping - use available resources to cope with the challenges of managing diabetes Task: Discuss recognizing feelings about having diabetes Responsible User: Reny Reddy RD Task: Provide education on the benefits of making appropriate lifestyle changes Completed 05/29/2022 Responsible User: Reny Reddy RD Task: Provide education on benefits of utilizing support systems Responsible User: Reny Reddy RD Task: Discuss methods for coping with stress Responsible User: Reny Reddy RD Task: Provide education on when to seek professional counseling Responsible User: Reny Reddy RD Time Spent: 60 minutes Encounter Type: Individual Any diabetes medication dose changes were made via the CDE Protocol per the patient's referring provider. A copy of this encounter was shared with the provider. documented in this encounter Plan of Treatment Not on file documented as of this encounter Visit Diagnoses Diagnosis Diabetes mellitus, type 2 (H)- Primary Type II or unspecified type diabetes mellitus without mention of complication, not stated as uncontrolled documented in this encounter Care Teams Engine Setter Relationship Specialty Start Date End Date No Ref-Primary, Physician PCP - General 05/27/22 Stephen Kuo MD Assigned PCP 04/20/21 03/17/[address] [place] [address] Dredge Pipe Operator Dietitian, Registered 05/27/22 3 documented as of this encounter
--- NOTE | 2023-03-21 00:35 | ED.NURSE ---
radha called for transfer for [facility]
--- NOTE | 2023-03-21 00:50 | ED.NURSE ---
patient wants to leave AMA, states that she is not having a heart attack and that she would like her IV out. Daughters in the room would like the patient to get care, one of the daughters is a registered midwife. Patient very rude to family and staff saying that she just wants to go home and and that she is not having a heart attack because her EKG and continuous monitoring are normal. Patient states that she will only go to [place] for her care.
--- NOTE | 2023-03-21 00:52 | PC.NURSE ---
MD and RN in the room explaining to the patient what it means when you have an elevated troponin with chest pain. Patient states that she again isnt having a heart attack and that she just wants to go home. Daughter and staff continue to explain to patient that she is at a very high risk for a major cardiac event if she does not continue care. Patient states that she will consider staying if she can go to [place]. Patient agrees to leave her IV in so that we wont have to poke her again.
--- NOTE | 2023-03-21 00:57 | ED.NURSE ---
[facility] returned call from [facility]. Call transfered to MD Patricia @ [phone]
[2023-03-21] MEDS: ASPIRIN 81 MG TAB.CHEW 324 MG PO (01:15)
[2023-03-21] MEDS: HEPARIN 5,000 UNIT/0.5 ML INJ 4000 UNIT IVP (01:15)
[2023-03-21] MEDS: HEPARIN 25,000 UNIT/500 ML BAG 20 UNIT IV (01:20)
[2023-03-21 01:25] LABS: INR 0.96 (0.91-1.10); Prothrombin Time 13.4 Seconds
--- NOTE | 2023-03-21 01:25 | PC.NURSE ---
recommended starting second IV on patient and she refused, education provided and patient continues to refuse
[2023-03-21 01:26] LABS: Partial Thromboplastin Time* 31 Seconds (23-33)
--- NOTE | 2023-03-21 01:30 | ED.NURSE ---
Patient nurse to nurse report given to cresencio RUCKER at [place]. ([phone]). Patient was accepted and will be going to [place] [phone]. Dispatch called, crew will be here within 15 minutes for transfer.
--- NOTE | 2023-03-21 02:31 | ED.NURSE ---
report given to EMS.
== END 2023-03-21 02:33 | disposition short-term general hospital (02) ==
PROVIDERS: Emergency Provider Internal Medicine
DX: I21.4 Non-ST elevation (NSTEMI) myocardial infarction (principal)
CPT/HCPCS: 36415; 71045; 80048; 84484; 85025; 85379; 85610; 85730; 96374; 99284; 99285; A9270; J1644

== ENCOUNTER 2023-03-21 02:10 | Outpatient (CLI) | payer MEDICARE, BC, SELFPAY ==
--- OUTSIDE RECORDS SUMMARY | 2023-03-22 10:38 | XMS_ITS | Encounter Summary ---
Author Name Unknown Organization [facility] Address [address] [place] [address] Care Team Providers Care Slab Polisher Name Role Phone Stephen Kuo MD Unavailable [phone] Ref-Primary, Physician Primary Care Provider Reny Reddy RD Unavailable [phone] Reason for Visit * Reason Comments Diabetes Education Type II Diabetes Encounter Details Date Type Department Care Team (Latest Contact Info) Description 05/27/2022 2:00 PM CDT Allied Health/Nurse Visit [address] [phone] [place] [address] Diabetes Education (Type II Diabetes) [...] No results found for: MICROALBUMIN Healthy Eating: Cultural/druze diet restrictions?: No Meal planning/habits: Avoiding sweets, [...] Task: Refer patient to appropriate extended care rock climbing team member, as needed (Medication Therapy Management, Behavioral Health, [...] monitoring (sensor placement, use of ada or marketing engineer/reader, understanding glucose trends, alerts and alarms, differences [...] uncontrolled documented in this encounter Care Teams Slab Polisher Relationship Specialty Start Date End Date No Ref-Primary, Physician PCP - General 05/27/22 Stephen Kuo MD Assigned PCP 04/20/21 03/17/[address] [place] [id number] Developer Trading Systems Dietitian, Registered 05/27/22 3 documented as of this encounter
--- OUTSIDE RECORDS SUMMARY | 2023-03-22 10:38 | XMS_ITS | Continuity of Care Document ---
Author Name Unknown Organization [facility] Address [address] [facility] [place] [address] Phone Care Team Providers Care Committee Member Name Role Phone Eri Stubbs MD Unavailable [...] (menthol) 10 % topical cream - Active Procedures Procedure Date INJECT TRIGGER POINTS, =/> 3 OFFICE/OUTPATIENT VISIT, EST INJECT TRIGGER POINTS, =/> 3 OFFICE/OUTPATIENT VISIT, EST No Charge For Visit Per Prov OFFICE/OUTPATIENT VISIT, EST OFFICE/OUTPATIENT VISIT, NEW Advance Directives Directive Yes / No Effective Date File Name No Information Encounters Encounter Description Practice Location Reason(s) For Visit Diagnoses Date Provider Providers Copied on Encounter [facility], [address] [place] [address] Cintia [place], [id number] , [place] [phone] [facility] Myalgia, other site 4 Evelyne Hwang. [address] [place] [address] Joy [place], [id number] , [place]. tel:[phone] Referring Provider: Eri Stubbs, [address] [place] [address] [place], [address] . tel:[phone] OFFICE/OUTPA TIENT VISIT, [facility], [address] [place] [address] Cintia H[place], [id number] , [place] tel:[phone] [facility] bilateral shoulder pain (chief complaint) Chronic pain syndromePain in right shoulderPain in left kneeMyalgia, other siteLong term (current) use of opiate analgesicRadiculopath y 4 Evelyne Hwang. [address] [place], [place] [address], [id number] , [place]. tel:[phone] Referring Provider: Eri Stubbs, [address] [place] [address] [place], [address] . tel:[phone] OFFICE/OUTPA TIENT VISIT, [facility], [address] [place] [address] Cintia H[place], [id number] , [place] tel: [phone] [facility] bilateral shoulder pain (chief complaint) Chronic pain syndromePain in right shoulderPain in left kneeMyalgia, other site 3 Evelyne Hwang. [address] [place], [id number] , [place]. tel: [phone] Referring Provider: Eri Stubbs, [address] [place] [address] [place], [address] . tel:[phone] [facility], [address] [place] [address] Cintia H[place], [id number] , [place] tel: [phone] [facility] bilateral shoulder pain (chief complaint) Chronic pain syndromeConstipationP ain in right shoulderLong term (current) use of opiate analgesic 3 Evelnye Hwang. [address] [place] [address] Joy H[place], [id number] , [place]. tel: [phone] Referring Provider: Eri Stubbs, [address] [place] [address] [place], [address] . tel:[phone] OFFICE/OUTPA TIENT VISIT, [facility], [address] [place], [place] [address]Cintia [place], [id number] , [place] tel: [phone] [facility] bilateral shoulder pain (chief complaint) Chronic pain syndromePain in right shoulderLong term (current) use of opiate analgesicConstipation Myalgia, other site 3 Evelyne Hwang. [address] [place] [address] Joy H[place], [id number] , [place]. tel:[phone] Referring Provider: Eri Stubbs, [address] [place] [address] Soled[place], [address] . tel:[phone] OFFICE/OUTPA TIENT VISIT, [facility], [address] [place] [address] Cintia [place], [id number] , [place] tel: [phone] [facility] bilateral shoulder pain (chief complaint) Spinal stenosis, lumbar region with neurogenic claudicationPain in right shoulderCervicalgiaCh ronic pain syndrome 3 Evelyne Eri. [address] [place], [id number] , [place]. [phone] Referring Provider: Oracio Jordan, [address] [place], [address] . tel:[phone] Family History Family Member Type Diagnosis Age At Onset No Information Payers Payer name Insurance type Covered republican ID Mario carlin(s) Medicare MB [id number] [facility] [id number] Social History Type Description Quantity Date Captured [...] use screening . Due on due Goal SEISMOLOGY TEACHER Paperwork. Due on due Goal OARS. Due on due Goal Zoster vaccine (1st). Due on due Goal Update Social History. Due o n due Goal CASH REGISTER BALANCER Scanned. Due on due Goal AST (SGOT). Due on due Goal Order Annual PT. Due on due Goal Creatinine. Due on due Goal UDT. Due on due Goal SEISMOLOGY TEACHER Paperwork. Due on due Goal AST (SGOT). Due on due Goal OARS. Due on due Goal ALT (SGPT). Due on due Goal Order Annual PT. Due on due Goal CASH REGISTER BALANCER Scanned. Due on due Goal Creatinine. Due [...] Order Annual PT. Due on due Goal SEISMOLOGY TEACHER Paperwork. Due on due Goal AST (SGOT). [...] Goal ALT (SGPT). Due on due Goal CASH REGISTER BALANCER Scanned. Due on due Goal Height. Due [...] Goal AST (SGOT). Due on due Goal CASH REGISTER BALANCER Scanned. Due on due Goal OARS. Due on due Goal UDT. Due on due Goal SEISMOLOGY TEACHER Paperwork. Due on due Goal Order Annual PT. Due on due Goal AST (SGOT). Due on due Goal ALT (SGPT). Due on due Goal Creatinine. Due on due Goal CASH REGISTER BALANCER Scanned. Due on due Goal Order Annual PT. Due on due Goal OARS. Due on due Goal UDT. Due on due Goal SEISMOLOGY TEACHER Paperwork. Due on due Goal Medication Reconciliation. [...] n due Goal Tobacco Use. Due on 023 due Goal Review Allergy List. Due on due Goal Medication Reconciliation. D ue on due Goal Zoster vaccine (1st). Due on due Goal Unhealthy drug use screening . Due on due Goal Height. Due on d ue Appointment Iesha Mackay BOOKED Appointment Iesha Mackay BOOKED History Of Present Illness Encounter Date Complaint History Of Prese nt Illness Comments: Ms Amos small presents for follow [...] daughter inquires about a trial of Ultram. bilateral shoulder pain Duration : chronic. Severity [...] participates in the discussion. She stopped the [place] as she was getting significant constipation, even [...] discussion. She has been using about 2 [place] per day, which has been effective. Has [...] 4.5 mg, but with diminishing benefit- Shoulder injectionsShe is interested in any treatment that will provide benefit with minimal SE. Functional Status Date Functional Assessmen t No Information Instructions Date Instruction Additional Infor dima No Information Assessments Type Assessment Date assessment Myalgia, other site Patient Care Teams Name Effective Dates (start - stop) Status Members No Information
--- OUTSIDE RECORDS SUMMARY | 2023-03-22 10:38 | XMS_ITS ---
Author Name Unknown Organization [facility] Address [address] [place] [address] Care Team Providers Care Plant Worker Name Role Phone No Ref-Primary, Physician Primary Care Provider [facility] - [facility] Unavaila ble Diabetes Self-Management Education Status:Closed (Closed) Start date:05/27/2022 Enrollment date:05/27/2022 End date:05/29/2022 Continued Care and Services Coordination
--- OUTSIDE RECORDS SUMMARY | 2023-03-22 10:38 | XMS_ITS | Clinical Summary ---
Author Name Unknown Organization [facility] Address [address] [place] [address] Care Team Providers Care Power Plant Manager Name Role Phone No Ref-Primary, Physician Primary Care Provider [facility] Unavaila ble Allergies Active Allergy Reactions Criticality [...] VIT A,C,E/UBIDEC/ANTIOX VIT #6 (VIT A, C, [id number] VIT 6 ORAL) [VIT A,C,E/UBIDEC/ANTIOX VIT #6 (VIT A, C, [id number] VIT 6 ORAL)] Take 1 tablet by [...] age to complete this topic Care Teams Power Plant Manager Relationship Specialty Start Date End Date No Ref-Primary, Physician PCP - General 05/27/22 Clinic - [address] [address] Assigned PCP 03/18/23
--- OUTSIDE RECORDS SUMMARY | 2023-03-22 10:38 | XMS_ITS | Referral Summary ---
Author Name Unknown Organization [facility] Address [address] [place] [address] Care Team Providers Care Information Technology Analyst Name Role Phone No Ref-Primary, Physician Primary Care Provider [facility] Unavaila ble Allergies Active Allergy Reactions [...] VIT A,C,E/UBIDEC/ANTIOX VIT #6 (VIT A, C, [id number] VIT 6 ORAL) [VIT A,C,E/UBIDEC/ANTIOX VIT #6 (VIT A, C, [id number] VIT 6 ORAL)] Take 1 tablet by [...] of Treatment Not on file Care Teams Information Technology Analyst Relationship Specialty Start Date End Date No Ref-Primary, Physician PCP - General 05/27/22 Clinic - [address] [address] Assigned PCP 03/18/23
--- OUTSIDE RECORDS SUMMARY | 2023-03-22 10:38 | XMS_ITS | Encounter Summary ---
Author Name Unknown Organization [facility] Address [address] [place] [address] Care Team Providers Care Commercial Fishing Vessel Operator Name Role Phone Stephen Kuo MD Unavailable [phone] No Ref-Primary, Physician Primary Care Provider Reny Reddy RD Unavailable [phone] Encounter Details Date Type Department Care [...] on filedocumented in this encounter Care Teams Commercial Fishing Vessel Operator Relationship Specialty Start Date End Date No Ref-Primary, Physician PCP - General 05/27/22 Stephen Kuo MD Assigned PCP 04/20/21 03/17/[address] [place] [id number] Honing Machine Operator Dietitian, Registered 05/27/22 3 documented as of this encounter
--- OUTSIDE RECORDS SUMMARY | 2023-03-22 10:38 | XMS_ITS | Continuity of Care Document ---
Author Name Unknown Organization [facility] Address [address] [place] [address] Phone Care Team Providers Care Deli Cutter Slicer Name Role Phone Bonnie Mercer Unavailable Unavaila [...] ient Visit,, Mod [facility], [address], [place], [id number], [place] tel:[phone] [facility] Spinal stenosis, lumbar region with neurogenic claudication Liang Nicole. [facility], [address], [place], [address], [place]. tel:[phone] Referring Provider: Noah Bolton, [facility] [address] , [place], [address]. tel:[phone] Family History Family Member Type Diagnosis Age At Onset No Information Payers Payer name Insurance type Covered constitution party ID Authorjania tesfaye(s) Medicare MB [id number] [facility] [id number] [facility] [id number] Social History Type Description Quantity Date Captured [...]
--- OUTSIDE RECORDS SUMMARY | 2023-03-22 10:38 | XMS_ITS | Encounter Summary ---
Author Name Unknown Organization [facility] Address [address] [place] [address] Care Team Providers Care Fitness Services Manager Name Role Phone Stephen Kuo MD Unavailable [phone] No Ref-Primary, Physician Primary Care Provider Berkley Reddy RD Unavailable [phone] Clinic - [facility] Unavaila ble Reason for Visit * Reason Onset Date Comments Appointment 05/08/2022 Encounter Details Date Type Department Care Team (Late st Contact Info) Description 05/08/2022 Telephone [facility] [place] [address] [place] [address] Ber[address]ley Red[address], RD [address] [place], [place] [id number] Appointment Social History Tobacco Use Types Packs/Day [...] CDT Pt calling because her dr from [facility] had sent over a referral for her to meet with berkley reddy, the external grinder tender. Please call pt back so she can set up an appointment. documented in this encounter Plan of Treatment Not on file documented as of this encounter Visit Diagnoses Not on filedocumented in this encounter Care Teams Fitness Services Manager Relationship Specialty Start Date End Date No Ref-Primary, Physician PCP - General 05/27/22 Stephen Kuo MD Assigned PCP 04/20/21 03/17/[address] [place] [id number] Die Finisher Dietitian, Registered 05/27/22 3 [facility] - [address] [address] Assigned PCP 03/18/23 documented as of this encounter
== END 2023-03-21 02:11 | disposition home or self-care (01) ==
LOC: AMB 03-22 10:35
PROVIDERS: Visit Provider Family Medicine
DX: I21.4 Non-ST elevation (NSTEMI) myocardial infarction (principal)
CPT/HCPCS: A0425; A0427

== ENCOUNTER 2024-09-05 13:39 | Outpatient (CLI) | payer MEDICARE, BC, SELFPAY | END 2024-09-05 13:40 | disposition home or self-care (01) | PROVIDERS: Visit Provider Family Medicine | DX: M54.16 Radiculopathy, lumbar region (principal); M51.369 Other intervertebral disc degeneration, lumbar region without mention of lumbar back pain or lower extremity pain | CPT/HCPCS: 64483; 64484; J1100; Q9966 ==